=== PATIENT | female | born 1950 | race Caucasian/White ===

== ENCOUNTER 2017-05-20 07:20 | Outpatient (CLI) | payer MEDICARE ==
[2017-05-20 08:57] LABS: Estimated GFR-MDRD - POC Greater than 90
--- NOTE | 2017-05-20 11:53 | CT ---
CT OF THE ABDOMEN AND PELVIS WITH CONTRAST: COMPARISON: None. HISTORY: Right lower quadrant abdominal pain for 6 weeks. Cirrhosis of the liver. TECHNIQUE: Multiple contiguous axial images were obtained in a CT of the abdomen and pelvis with contrast. P.o. contrast was administered. Coronal reformats were performed. FINDINGS: The liver is cirrhotic in appearance. There are calcifications in the liver and spleen from prior gr anulomatous disease. No suspicious liver lesions are seen. The gallbladder, kidneys, adrenal glands, and pancreas are unremarkable. There are retroperitoneal varices and a spontaneous left splenorenal shunt. There are numerous diverticula in the colon. There is thickening of the sigmoid colon wall which may be secondary to chronic scarring. Acute diverticulitis is also a possibility. The small bowel is n ormal in caliber. The appendix is unremarkable. The patient is status post hysterectomy. No abdominal or pelvic lymphadenopathy are seen. There are small retroperitoneal lymph nodes measuring up to 1.4 cm in greatest dimension. Degenerative changes are seen in the spine. The visualized inferior thorax and abdominal wall soft t issues are unremarkable. IMPRESSION: 1. Diverticulosis with possible acute diverticulitis versus scarring secondary to thickening of the wall. 2. Cirrhosis with sequelae of portal hypertension. POS: [facility]
== END 2017-05-20 07:21 | disposition home or self-care (01) ==
LOC: BICCT 07:20
PROVIDERS: ATTEND Internal Medicine Gastroenterology
DX: K74.60 Unspecified cirrhosis of liver (principal); R10.9 Unspecified abdominal pain; K72.90 Hepatic failure, unspecified without coma
CPT/HCPCS: 74177

== ENCOUNTER 2017-08-16 14:08 | Outpatient (CLI) | payer MEDICARE | END 2017-08-16 14:09 | disposition home or self-care (01) | LOC: EEG 14:08 | PROVIDERS: ATTEND Student in an Organized Health Care Education/Training Program | DX: R51 Headache (principal); H53.9 Unspecified visual disturbance; R47.9 Unspecified speech disturbances; R25.1 Tremor, unspecified; R26.89 Other abnormalities of gait and mobility | CPT/HCPCS: 95816 ==

== ENCOUNTER 2018-08-14 15:16 | Emergency (ER) | payer MEDICARE ==
--- NOTE | 2018-08-14 15:46 | RAD ---
XR Knee Lt 4 View STANDARD History: [Pain after a fall] Comparison: None. Findings: Moderate size joint effusion. Medial compartment joint space narrowing with subcortical cys t formation, sclerosis, and osteophyte formation. Osteophyte formation is also present in the lateral compartment. Mild periarticular osteopenia of the lateral rim of the lateral tibial plateau. No defi nite fracture is appreciated. Impression: Advanced degenerative changes periarticular osteopenia of the lateral rim of the lateral tibial plateau with what is felt to be an osteophyte and not a fracture. If the patient is acutely un able to bear weight, a CT would be recommended.
--- NOTE | 2018-08-14 16:54 | CT ---
CT left knee noncontrast HISTORY: Left knee injury. Fall 6 weeks ago. FINDINGS: Small amount of fluid distends the suprapatellar bursa. There is prominent tricompartmental osteophytosis. Marked joint space narrowing of the medial compartment. Moderate joint space narrowin g of the lateral compartment. Lateral subluxation of the patella with prominent joint space loss. Sub cortical cyst formation most pronounced at the medial tibial plateau. Small embedded metallic foreign body just superficial to the medial patellofemoral retinaculum. IMPRESSION: Prominent osteoarthritic changes of the left knee with near complete joint space loss of the medial compartment and a small joint effusion. No acute osseous abnormalities are demonstrated.
--- NOTE | 2018-08-14 17:54 | ULT ---
EXAM: Left lower extremity venous duplex: Deep veins evaluated with color Doppler, spectral analysis, and compression. INDICATIONS: Left lower extremity pain and edema. FINDINGS: Deep veins interrogated include common femoral vein, femoral vein, popliteal vein, and posterior tibi al vein. These veins show normal compression and blood flow. No evidence of DVT. IMPRESSION: Negative Left venous duplex exam.
== END 2018-08-14 18:25 | disposition home or self-care (01) ==
LOC: ERS 15:16
DX: M25.562 Pain in left knee (principal); I10 Essential (primary) hypertension; E11.9 Type 2 diabetes mellitus without complications; F41.9 Anxiety disorder, unspecified; F32.9 Major depressive disorder, single episode, unspecified; Z87.891 Personal history of nicotine dependence; W19.XXXA Unspecified fall, initial encounter

== ENCOUNTER 2018-09-06 15:04 | Outpatient (CLI) | payer MEDICARE ==
[~2018-09-06 15:04] MED LIST: Gadobenate Dimeglumine 529 MG/1 ML (20ML VIAL) ONE
[2018-09-06 16:33] LABS: Estimated GFR-MDRD - POC Greater than 90
--- NOTE | 2018-09-07 08:23 | MRI ---
MRI ABDOMEN WITH AND WITHOUT IV CONTRAST: HISTORY: Hepatitis C, abdominal pain. CORRELATION: CT abdomen of 05/20/2017. COMPARISON: MRI of abdomen 09/20/2013. FINDINGS: Irregular nodular surface of the liver is seen consistent with cirrhosis. No enhancing hepatic mass or abnormal biliary ductal dilatation is seen. The spleen is enlarged measuring 15.4 cm in length. Gallbladder is unremarkable. A subcentimeter cyst in the left kidney is stable. The pancreas, adrenal glands, and right kidney ar e normal. There is a tiny amount of free fluid in the upper abdomen. No lymphadenopathy is seen. Marrow signa l is normal. Retroperitoneal and splenic varices and left splenorenal shunt are again noted. IMPRESSION: 1. Cirrhosis of the liver with portal hypertension. No enhancing liver mass. 2. Minimal ascites. 3. Left renal cyst. 4. Splenomegaly. POS: [facility]
== END 2018-09-06 15:05 | disposition home or self-care (01) ==
LOC: BICMRI 15:04
PROVIDERS: ATTEND Physician Assistant Medical
DX: K74.60 Unspecified cirrhosis of liver (principal); Z86.19 Personal history of other infectious and parasitic diseases; K76.6 Portal hypertension; R18.8 Other ascites; N28.1 Cyst of kidney, acquired; R16.1 Splenomegaly, not elsewhere classified
CPT/HCPCS: 74183; 82565; A9577

== ENCOUNTER 2018-09-07 12:33 | Emergency (ER) | payer MEDICARE ==
[2018-09-07 13:22] LABS: #Eosinphils 0.1 thou/uL (0.0-0.7); #Monocytes 0.3 thou/uL (0.11-0.59); #Neutrophils 1.8 thou/uL (1.40-6.50); %Basophils 0.6 % (0.0-1.0); %Eosinophils 2.8 % (0.0-10.0); %Lymphocytes 31.4 % (21.0-51.0); %Monocytes 8.1 % (0.0-10.0); Mean Corpuscular HGB CONC 31.8 g/dL (32.0-36.0); Mean Corpuscular Volume 91.2 fL (78.0-98.0); Mean Platelet Volume 8.8 fL (7.4-10.4); Platelet Count 50 thou/uL (130-400); RBC Distribution Width 14.2 % (11.5-14.5); Red Blood Cell (RBC) Count 4.13 mill/uL (4.20-5.40); White Blood Cell (WBC) Count 3.1 thou/uL (4.8-10.8)
--- NOTE | 2018-09-07 13:47 | ULT ---
LEFT LOWER EXTREMITY VENOUS DOPPLER ULTRASOUND: Date: 09/07/18 HISTORY: Left lower extremity pain. TECHNIQUE/FINDINGS: Multiple longitudinal and transverse images of the left lower extremity venous system obtained using a multihertz linear array transducer. Real-time, color flow, and spectral waveform Doppler analysis d emonstrates no evidence of acute or old clot seen in the left common femoral, superficial femoral, fe moral profunda, popliteal, posterior tibial vein, and left greater saphenous vein. IMPRESSION: No evidence of left lower extremity deep venous thrombosis. POS: [facility]
[2018-09-07 13:48] LABS: ALT (SGPT) 30 U/L (8-55); AST (SGOT) 57 U/L (5-34); Albumin 2.9 g/dL (3.4-4.8); Alkaline Phosphatase 125 U/L (40-150); Anion Gap 8 mmol/L (10-20); BUN (Urea Nitrogen) 5 mg/dL (9.8-20.1); Bilirubin, Total 1.6 mg/dL (0.2-1.2); Calc. Creatinine Clearance 0 mL/min (70-130); Calcium 8.5 mg/dL (7.8-10.44); Carbon Dioxide 28 mmol/L (23-31); Chloride 108 mmol/L (98-107); Estimated GFR-MDRD 82; Globulin 3.5 g/dL (2.4-3.5); Glucose 267 mg/dL (80-115); Potassium 3.5 mmol/L (3.5-5.1); Protein, Total 6.4 g/dL (6.0-8.3); Sodium 140 mmol/L (136-145)
== END 2018-09-07 15:50 | disposition home or self-care (01) ==
LOC: ERS 12:33
DX: D69.6 Thrombocytopenia, unspecified (principal); F41.9 Anxiety disorder, unspecified; F32.9 Major depressive disorder, single episode, unspecified; E11.9 Type 2 diabetes mellitus without complications; I10 Essential (primary) hypertension; M79.605 Pain in left leg; Z87.891 Personal history of nicotine dependence
CPT/HCPCS: 36415; 80053; 85025

== ENCOUNTER 2018-11-13 16:19 | Outpatient (CLI) | payer MEDICARE ==
--- NOTE | 2018-11-13 18:11 | RAD ---
TWO VIEWS CHEST: Comparison: 07-20-12 History: Fall with pain in the left chest. FINDINGS: Two views of the chest show normal sized cardiomediastinal silhouette. There is no evidence of consol idation, mass, or pleural effusion. The bones are unremarkable. IMPRESSION: No evidence of acute cardiopulmonary disease. POS: [facility]
--- NOTE | 2018-11-13 18:12 | RAD ---
LEFT RIB SERIES: History: Fall with left chest pain. FINDINGS: Three views of the left ribs shows no evidence of displaced left rib fracture. No pleural thickening or pneumothorax are seen. IMPRESSION: No evidence of displaced left rib fracture. POS: [facility]
== END 2018-11-13 16:20 | disposition home or self-care (01) ==
LOC: BICRAD 16:19
PROVIDERS: ATTEND Internal Medicine
DX: R07.9 Chest pain, unspecified (principal); Z91.81 History of falling
CPT/HCPCS: 36415; 71046; 80076; 82140; 85025

== ENCOUNTER 2018-12-07 08:53 | Outpatient (CLI) | payer MEDICARE ==
--- NOTE | 2018-12-07 10:26 | BD ---
Exam: DEXA Bone Density Comparison: None. History: 68-year-old post-menopausal female for screening Lumbar Spine: BMD (g/cm2) L1 0.882 T-Score: -1.0 L2 0.923 T-Score: -1.0 L3 1.011 T-Score: -0.7 L4 0.968 T-Score: -0.8 L1-L4 0.951 T-Score: -0.9 Femoral Neck: 0.593 T-Score: -2.3 Total Femur: 0.821 T-Score: -1.0 Impression: 1. Osteopenia. This patient has a 10-year WHO fracture risk of a major osteoporotic fracture of 12% a nd hip fracture 2.4%. POS: [facility]
== END 2018-12-07 08:54 | disposition home or self-care (01) ==
LOC: BICMAMMO 08:53
PROVIDERS: ATTEND Internal Medicine
DX: Z13.820 Encounter for screening for osteoporosis (principal); M85.89 Other specified disorders of bone density and structure, multiple sites
CPT/HCPCS: 77080

== ENCOUNTER 2019-01-23 12:18 | Inpatient (IN) | payer MEDICARE, OTHER ==
[2019-01-23 12:54] LABS: #Eosinphils 0.1 thou/uL (0.0-0.7); #Lymphocytes 1.5 thou/uL (1.20-3.40); #Monocytes 0.5 thou/uL (0.11-0.59); #Neutrophils 2.9 thou/uL (1.40-6.50); %Basophils 0.4 % (0.0-1.0); %Eosinophils 1.8 % (0.0-10.0); %Lymphocytes 29.2 % (21.0-51.0); %Monocytes 10.2 % (0.0-10.0); %Neutrophils 58.5 % (42.0-75.0); Hemoglobin 12.4 g/dL (12.0-16.0); Mean Corpuscular HGB CONC 33.9 g/dL (32.0-36.0); Mean Corpuscular Hemoglobin 30.2 pg (27.0-31.0); Mean Corpuscular Volume 89.2 fL (78.0-98.0); Mean Platelet Volume 9.6 fL (7.4-10.4); Platelet Count 64 thou/uL (130-400); RBC Distribution Width 14.2 % (11.5-14.5); Red Blood Cell (RBC) Count 4.09 mill/uL (4.20-5.40)
[2019-01-23 13:13] LABS: ALT (SGPT) 35 U/L (8-55); AST (SGOT) 58 U/L (5-34); Albumin 2.9 g/dL (3.4-4.8); Alkaline Phosphatase 120 U/L (40-150); Anion Gap 10 mmol/L (10-20); BUN (Urea Nitrogen) 16 mg/dL (9.8-20.1); Bilirubin, Total 1.2 mg/dL (0.2-1.2); Calc. Creatinine Clearance 0 mL/min (70-130); Calcium 9.3 mg/dL (7.8-10.44); Carbon Dioxide 30 mmol/L (23-31); Chloride 108 mmol/L (98-107); Estimated GFR-MDRD 66; Globulin 3.9 g/dL (2.4-3.5); Glucose 110 mg/dL (80-115); Lipase 57 U/L (8-78); Protein, Total 6.8 g/dL (6.0-8.3); Sodium 143 mmol/L (136-145)
--- NOTE | 2019-01-23 13:43 | RAD ---
XR Chest 1 View Portable HISTORY: Altered mental status COMPARISON: 07/29/2014 FINDINGS: The heart size is normal. The lungs are well expanded without focal areas of consolidation, pneumothorax or pleural effusions. IMPRESSION: No radiographic evidence of acute cardiopulmonary process.
--- NOTE | 2019-01-23 13:50 | CT ---
CT HEAD WITHOUT IV CONTRAST COMPARISON: 03/17/2014 HISTORY: Altered mental status. TECHNIQUE: Axial CT imaging at 5 mm intervals from vertex through skull base without contrast FINDINGS: There is a small curvilinear area of increased density conforming to the inner table of the left fron joshua bone which measures approximately 4 mm in greatest transverse dimension. This was not identified on the prior exam. While this could potentially represent an area of dural thickening, a s mall subdural hematoma is suggested. No additional intraparenchymal or extra-axial hemorrhage is seen. There is no evidence of an acute infarction, mass effect, or midline shift. Again noted is mild cereb ral volume loss similar to the prior exam. The ventricular system is normal in size, shape, and position. Visualized paranasal sinuses are clear. Osseous structures appear intact. IMPRESSION: 1. Suggestion of a small subdural hematoma measuring 4 mm in greatest transverse dimension in the lef t anterolateral frontal region. This is not thought to represent an area of dural thickening; although, this is a possibility. This was not present on prior study in 2013. Follow-up evaluation is recommended. 2. Above findings discussed with May Barajas nurse practitioner in the emergency department on at 1348 hours.
[2019-01-23 15:06] LABS: INR-International Normal Ratio 1.5; PTT 31.6 SEC (22.9-36.1); Prothrombin Time 18.3 SEC (12.0-14.7)
[2019-01-23] MEDS ORDERED: Acetaminophen 325 MG TAB PO PRN (17:17)
[2019-01-23] MEDS ORDERED: Ondansetron PF 4 MG/2 ML Vial IVP PRN (17:17)
[2019-01-23] MEDS ORDERED: Ondansetron ODT 4 MG TAB SL PRN (17:17)
[2019-01-23 17:59] VITALS: BMI 39.1
[2019-01-23] MEDS ORDERED: Lorazepam 1 MG TAB PO PRN (19:33)
[2019-01-23] MEDS ORDERED: Dextrose 50% Abboject 50 ML SYRINGE SLOW IVP PRN (19:51)
[2019-01-23] MEDS ORDERED: HumaLOG 300 UNITS/3 ML VIAL SC PRN (19:51)
[2019-01-23] MEDS ORDERED: Dextrose 5% in Water 1,000 ML IV PRN (19:51)
[2019-01-23] MEDS ORDERED: Insulin Glargine 50 UNITS in Pre-Filled Syringe SC SCH (21:00)
[2019-01-23] MEDS ORDERED: Non-Formulary Item 1 EACH (Insulin Glargine,Hum.Rec.Anlog [Lantus Solostar] 50 UNIT) SQ SCH (21:00)
[2019-01-23] MEDS: Insulin Glargine 40 UNITS in Pre-Filled Syringe SC SCH (21:01)
--- NOTE | 2019-01-23 22:54 | HP ---
PRIMARY CARE PHYSICIAN: Suzan East MD. PUNCH PRESS SETTER: Cordell Goldman MD. CHIEF COMPLAINT/REASON FOR ADMISSION: "My brought me to the hospital." HISTORY OF PRESENT ILLNESS: Ms. Miller is a pleasant 68-year-old female with a longstanding history of cirrhosis secondary to hepatitis C, typically well compensated, presenting on this occasion with confusion. History is primarily gathered from Mr. Miller who is present at the bedside. He endorses last night , she became increasingly confused, with visual hallucinations, believing that a table was on fire. She developed difficulty with speech and coordination, for example , had difficulty working the knobs and the shower. She has been under a great deal of stress recently, due to loss of a pet, as well as some other home stressors. No recent fever or chills. At baseline, she is prescribed lactulose once daily, but has been noncompliant with her regimen. She does not like having loose stools. When asked about trauma or falls, her states her baseline gait is somewhat unsteady, and she has had minor falls in the past. She has had no recent significant fall or injury. ER evaluation notable for CT head showing small subdural hematoma, 4 mm left anterior frontal area. Additionally in the emergency department, her ammonia level noted to be quite elevated, approximately 100. Lactulose given in the emergency department. Hospitalist admission requested. At the time of my evaluation, the patient states she is feeling better. She is sitting up and eating. She has no abdominal pain. She reiterates that she has had no fever or chills. PAST MEDICAL HISTORY: 1. Essential hypertension. 2. Type 2 diabetes, on Lantus 40 units subcutaneously twice daily. 3. Valentin's esophagitis. 4. Hepatitis C status post treatment, in remission. 5. Chronic liver disease/cirrhosis secondary to hepatitis. 6. Bipolar disorder. 7. History of posttraumatic stress disorder. 8. Obstructive sleep apnea, not currently on CPAP. 9. Chronic thrombocytopenia in the context of chronic liver disease. PAST SURGICAL HISTORY: 1. Appendectomy. 2. Hysterectomy. 3. Right shoulder surgery. 4. Right ankle surgery. 5. Tonsillectomy. 6. History of ruptured ectopic . 7. History of polyp removal, colonoscopy. SOCIAL HISTORY: Ms. Miller does not drink alcohol. She drank occasionally in the past, but never heavily. No IV drug use or previous history of drug use. She formerly used tobacco 1 pack per day, presently vapes and uses 1 or 2 cigarettes on occasion. Formerly worked in the [employer] business. Mr. Miller works for the local [employer]. ALLERGIES: LISTED TO DONALD, RECORD WHICH CAUSES A RASH. HOME MEDICATIONS: 1. Lactulose 20 g p.o. once daily (noncompliant). 2. Lantus 40 units subcutaneously twice daily. 3. Gabapentin 300 mg p.o. three times daily. 4. Furosemide 20 mg p.o. once daily. 5. Lisinopril 10 mg p.o. once daily. 6. Lorazepam 1 mg p.o. t.i.d. p.r.n. anxiety. 7. Nadolol 40 mg p.o. daily. 8. Omeprazole 40 mg p.o. once daily. FAMILY HISTORY: Both parents were alcoholics and of complications of alcoholism. REVIEW OF SYSTEMS: Full review of systems reviewed, addressed, negative except otherwise as mentioned. PHYSICAL EXAMINATION: VITAL SIGNS: ER triage vital signs; blood pressure 145/70, heart rate 97, temperature 97.7, respiratory rate 18, saturating 96% on room air. GENERAL: This is a pleasant female, sitting up in bed eating dinner at the time of my evaluation. HEENT: Eyes are without conjunctival injection or scleral icterus. Pupils are reactive to light bilaterally, equal/symmetric. Oropharynx, mucous membranes are dry. No erythema/exudate. NECK: Supple. Full range of motion. HEART: Regular rate and rhythm without distinct murmurs/rubs/gallops. LUNGS: Clear to auscultation bilaterally, good aeration. No significant overlying wheezing. ABDOMEN: Soft, nontender, nondistended. No distinct fluid wave. EXTREMITIES: Trace bilateral lower extremity edema. SKIN: No new skin rash or skin change. NEUROLOGIC: She is able to tell me her name, as well as her 's name. She knows she is at [facility] , but she is unable to tell me the correct date. She believes the year is 2019. She is not oriented to her situation in regard to events preceding hospital stay. She is able to follow commands. Speech appears clear. She has no focal deficit on testing. No asterixis present. LABORATORY/DATA REVIEW: CT head personally reviewed, small subdural 4 mm left anterior frontal area, compatible with subdural hematoma. Lab notable for platelet count of 64,000, which is close to her baseline. INR is 1.5. Liver function tests reviewed. Ammonia 102, lipase 57. Chest x-ray personally reviewed. No infiltrate/effusion/edema. Case discussed by phone with FARZANA Delacruz. IMPRESSION: 1. Decompensated hepatic encephalopathy secondary to noncompliance with lactulose. 2. Cirrhosis in the context of history of hepatitis C, in remission. 3. History of essential hypertension. 4. Insulin-dependent type 2 diabetes. 5. History of gastroesophageal reflux disease, on chronic proton pump inhibitor therapy. 6. Anxiety/depression with recent interval worsening. 7. Small area of subdural bleed, likely not clinically relevant, presently being followed by Neurosurgery. PLAN/RECOMMENDATIONS: 1. GI-additional dose lactulose 20 g p.o. this evening, then 20 g p.o. t.i.d. Check morning ammonia level. She seems to be showing good response to therapy. We will place home gabapentin on hold, as this may contribute to the confusion. Continue home omeprazole. 2. Endocrine-Lantus 40 units subcutaneously twice daily, verified dose with Mr. Miller. We will also place on insulin sliding scale, correctional. 3. Cardiology - continue home lisinopril. 4. Anxiety-continue home p.r.n. benzodiazepines. 5. Neurosurgery-followup CT head ordered by neurosurgical team, consultation appreciated. 6. Evaluation by walking program for ambulation. 7. Given her age and comorbidities, she is a high risk. At this time, her decompensation appears directly related to medical noncompliance. She does not have a history or laboratory evidence of other complications such as infection, underlying. As such, she will be treated symptomatically. Code status is full. 8. Surrogate medical decision maker is her , Mr. Miller, who is at the bedside. General risk condition is high given comorbidities. Job ID: [id number] [facility]
--- NOTE | 2019-01-23 23:02 | CON ---
DATE OF CONSULTATION: HISTORY OF PRESENT ILLNESS: The patient is a 68-year-old female with a past medical history of hepatitis C, cirrhosis, thrombocytopenia, dementia, anxiety and depression, managed by Dr. East, who presented to the emergency department with spouse for complaints of increased altered mental status. reports that the patient has been more anxious and had intermittent hallucinations and coordination issues. She is often uncoordinated and they report frequent falls in the past, but cannot not recall any particular recent trauma. Denies any fever or any other associated symptoms. She was evaluated with a noncontrast CT on arrival which is notable for a very small left frontal acute subdural hematoma. Again, no obvious trauma was seen or reported by the spouse. She is also noted to have elevated ammonia at 102. Platelets are chronically low, 64 today. Her PT is also slightly elevated at 18.3. Neurosurgery was consulted for evaluation of patient's new acute subdural hematoma. Pt had GCS 15 in ER. No focal neurologic deficits were reported. PAST MEDICAL HISTORY: Cirrhosis, hepatitis C, thrombocytopenia, diabetes, ulcerative colitis, anxiety, depression, hypertension. PAST SURGICAL HISTORY: Appendectomy, hysterectomy, right shoulder surgery, right ankle surgery, tonsillectomy. SOCIAL HISTORY: The patient does not smoke, drink, or use any drugs. REVIEW OF SYSTEMS: Per HPI. ALLERGIES: SHE IS ALLERGIC TO INSULIN LEVEMIR. PHYSICAL EXAMINATION: CONSTITUTIONAL: Awake, alert, in no acute distress. A and O x4. HEENT: Head, normocephalic and atraumatic. Eyes, PERRLA. Extraocular movements intact. ENT, oral mucosa is pink, intact, and moist. She has normal voice. NECK: Nontender to palpation. No meningismus or nuchal rigidity. MUSCULOSKELETAL: Free active range of motion all extremities. No focal motor weakness. NEURO: She is A and O x4. She is slightly tangential during our conversation, but her exam is otherwise nonfocal. CARDIAC: Regular rate and rhythm. PULMONARY: Symmetric chest expansion. No evidence of dyspnea. ASSESSMENT AND PLAN: This is a 68-year-old female who has had increased confusion per her spouse and was brought to the emergency department and found to have acute left frontal subdural hematoma, also found to have elevated ammonia levels and chronically low platelets, which are 64 today. At this time, we feel that the subdural is unlikely the cause of her confusion. It is quite small, not causing any shift or mass effect. There is no reported trauma and I do not appreciate any trauma externally on my exam. This may be spontaneous, related to her chronically low platelet count. We would recommend that we continue to monitor closely with q.2 neuro checks. We will repeat her a.m. noncontrast head CT. Her confusion is likely related to her ammonia levels and these are being managed by the hospitalist service. We will defer to them with regard to her other medical issues. [facility] ID[facility] [id number] [facility]
[2019-01-24 04:12] LABS: Anion Gap 10 mmol/L (10-20); BUN (Urea Nitrogen) 12 mg/dL (9.8-20.1); Calc. Creatinine Clearance 117 mL/min (70-130); Calcium 8.5 mg/dL (7.8-10.44); Carbon Dioxide 23 mmol/L (23-31); Chloride 111 mmol/L (98-107); Estimated GFR-MDRD 87; Potassium 3.5 mmol/L (3.5-5.1); Sodium 140 mmol/L (136-145)
[2019-01-24 04:18] LABS: Glucose 59 mg/dL (80-115)
[2019-01-24 04:26] LABS: #Eosinphils 0.1 thou/uL (0.0-0.7); #Lymphocytes 1.1 thou/uL (1.20-3.40); #Monocytes 0.3 thou/uL (0.11-0.59); #Neutrophils 1.9 thou/uL (1.40-6.50); %Basophils 0.9 % (0.0-1.0); %Eosinophils 2.7 % (0.0-10.0); %Lymphocytes 32.4 % (21.0-51.0); %Monocytes 8.8 % (0.0-10.0); %Neutrophils 55.2 % (42.0-75.0); Hemoglobin 11.5 g/dL (12.0-16.0); Mean Corpuscular HGB CONC 33.1 g/dL (32.0-36.0); Mean Corpuscular Hemoglobin 30.2 pg (27.0-31.0); Mean Corpuscular Volume 91.4 fL (78.0-98.0); Mean Platelet Volume 9.1 fL (7.4-10.4); Platelet Count 59 thou/uL (130-400); RBC Distribution Width 14.3 % (11.5-14.5); White Blood Cell (WBC) Count 3.5 thou/uL (4.8-10.8)
--- NOTE | 2019-01-24 07:22 | CT ---
CT BRAIN WITHOUT CONTRAST: Date: 01/24/19 INDICATION: 68-year-old female with intracranial hemorrhage. COMPARISON: Prior CT of the brain dated 01/23/19. FINDINGS: The small subdural hemorrhage overlying the anterolateral aspect of the left frontal lobe is not appr eciably changed in size measuring 3.7 mm in its greatest transverse dimension on image 15 of series 2 . This is similar to the comparison examination when accounting for slight differences in angulation of the acquired sections. No definite acute infarct or hydrocephalus is present. No midline shift is evident. Mastoid air cells are clear. Visualized paranasal sinuses are clear. The skull is intact. IMPRESSION: Stable left frontal subdural hemorrhage. POS: [facility]
[2019-01-24] MEDS: Insulin Glargine 40 UNITS in Pre-Filled Syringe SC SCH ×2 (09:15→20:38)
[2019-01-24] MEDS: Nadolol 40 MG TAB PO SCH (09:15)
[2019-01-24] MEDS: Furosemide 20 MG TAB PO SCH (09:15)
[2019-01-24] MEDS: Lisinopril 10 MG TAB PO SCH (09:15)
--- NOTE | 2019-01-24 09:42 | PRG ---
DATE OF SERVICE: 01/24/2019 SUBJECTIVE: The patient is seen and examined at bedside. The patient's daughter is present in the room during my visit. The patient's mental condition improved. She still has some slurred speech and difficulty of recalling some stuff, but otherwise she is improved. She complains about a lot of diarrhea from her lactulose. Apparently, no matter how much lactulose she takes. She has watery diarrhea basically all day. I have a hard time to believe in this because if she had diarrhea, she would not have elevated ammonia level. OBJECTIVE: VITAL SIGNS: Blood pressure is 144/76, pulse is 85, temperature is 96.3, respirations 16, and O2 saturation is 96% on room air. HEENT: Head is normocephalic. Sclerae are nonicteric. Conjunctivae are pinkish. Oral mucosa is moist. NECK: Supple. LUNGS: Clear. HEART: S1 and S2, normal. No S3. No S4. ABDOMEN: Soft, nontender, and nondistended. Bowel sounds are present. No organomegaly. EXTREMITIES: No clubbing or cyanosis. There is 1+ peripheral edema on both lower extremities. NEUROLOGIC: She follows my commands. She moves her all 4 extremities, but mentally she is off. She is not able to recall her things from past history. LABORATORY DATA: Labs showed white count of 3.5, hemoglobin 11.5, hematocrit 34.7, and platelet count is 59,000. Sodium 140, potassium 3.5, creatinine 1.11, CO2 of 23, BUN 12, creatinine 0.67, and glucose was 59. This morning, on her BMP, ammonia level is down to 77 from 102 yesterday. IMAGING STUDIES: CT of the brain showed again a small subdural hematoma, which is measured at 3.7 mm in the left frontal lobe area. IMPRESSION: 1. Decompensated hepatic encephalopathy secondary to noncompliance with lactulose. We will try to use smaller doses of lactulose since she is complaining about some diarrhea. We will use 10 g three times a day and see how she responds. 2. Left frontal subdural hematoma measured 3.7 mm on this morning CT scan of the brain. Neurosurgical consultation was done yesterday and there is no any indication for any surgical intervention needed. 3. History of essential hypertension. 4. Insulin-dependent type 2 diabetes mellitus. 5. Anxiety/depression with recent interval worsening. 6. History of gastroesophageal reflux disease, on chronic proton pump inhibitors therapy, and we will obtain ammonia level tomorrow morning and do walking program today and she should be able to go home in the next 24 hours most likely. Job ID: [id number]
[2019-01-24] MEDS ORDERED: Acetaminophen 325 MG TAB PO PRN (19:16)
[2019-01-24] MEDS: Rifaximin 550 MG TAB PO SCH (20:33)
[2019-01-25 04:20] LABS: #Eosinphils 0.1 thou/uL (0.0-0.7); #Lymphocytes 1.3 thou/uL (1.20-3.40); #Monocytes 0.4 thou/uL (0.11-0.59); #Neutrophils 2.6 thou/uL (1.40-6.50); %Basophils 0.5 % (0.0-1.0); %Eosinophils 3.2 % (0.0-10.0); %Lymphocytes 28.8 % (21.0-51.0); %Neutrophils 59.5 % (42.0-75.0); Hemoglobin 12.8 g/dL (12.0-16.0); Mean Corpuscular HGB CONC 33.8 g/dL (32.0-36.0); Mean Corpuscular Hemoglobin 30.2 pg (27.0-31.0); Mean Corpuscular Volume 89.4 fL (78.0-98.0); Mean Platelet Volume 9.2 fL (7.4-10.4); Platelet Count 56 thou/uL (130-400); RBC Distribution Width 14.1 % (11.5-14.5); Red Blood Cell (RBC) Count 4.24 mill/uL (4.20-5.40); White Blood Cell (WBC) Count 4.4 thou/uL (4.8-10.8)
[2019-01-25 04:32] LABS: ALT (SGPT) 33 U/L (8-55); AST (SGOT) 65 U/L (5-34); Albumin 2.7 g/dL (3.4-4.8); Alkaline Phosphatase 129 U/L (40-150); Anion Gap 11 mmol/L (10-20); BUN (Urea Nitrogen) 8 mg/dL (9.8-20.1); Bilirubin, Total 0.9 mg/dL (0.2-1.2); Calc. Creatinine Clearance 108 mL/min (70-130); Calcium 8.6 mg/dL (7.8-10.44); Carbon Dioxide 25 mmol/L (23-31); Chloride 108 mmol/L (98-107); Estimated GFR-MDRD 79; Globulin 3.8 g/dL (2.4-3.5); Glucose 160 mg/dL (80-115); Potassium 3.7 mmol/L (3.5-5.1); Protein, Total 6.5 g/dL (6.0-8.3); Sodium 140 mmol/L (136-145)
[2019-01-25 08:18] VITALS: TEMP 98.3
[2019-01-25] MEDS ORDERED: Enoxaparin Sodium 40 MG/0.4 ML SYRINGE SC SCH (09:00)
[2019-01-25] MEDS: Rifaximin 550 MG TAB PO SCH (10:34)
[2019-01-25] MEDS: Lisinopril 10 MG TAB PO SCH (10:34)
[2019-01-25] MEDS: Nadolol 40 MG TAB PO SCH (10:34)
[2019-01-25] MEDS: Furosemide 20 MG TAB PO SCH (10:37)
--- NOTE | 2019-01-25 11:28 | PRG ---
DATE OF SERVICE: Followup CT scan was reviewed and no meaningful change. The patient has a tiny left frontal subdural hematoma, that was discovered incidentally. It is not related to her altered mentation. No plans for neurosurgical intervention and no need for specific clinical and radiographic followup in this regard. Avoid any anticoagulation or antiplatelet agents. Job ID: [id number]
[2019-01-25 12:06] VITALS: BP 147/65
[2019-01-25] MEDS: Insulin Glargine 40 UNITS in Pre-Filled Syringe SC SCH (13:10)
--- NOTE | 2019-01-26 02:08 | DIS ---
DATE OF ADMISSION: 01/23/2019 DATE OF DISCHARGE: 01/25/2019 DIAGNOSES AT THE TIME OF DISCHARGE: 1. Decompensated hepatic encephalopathy secondary to noncompliance with lactulose. 2. Left frontal subdural hematoma. 3. History of essential hypertension. 4. Insulin-dependent type 2 diabetes mellitus. 5. Anxiety/depression. 6. History of gastroesophageal reflux disease. CONSULTANTS: Dionisio Zarco MD, Neurosurgical Service. HOSPITAL COURSE: The patient is a 68-year-old female, who was admitted to the hospital with statement that my brought me to the hospital. Apparently, she has a long-standing history of cirrhosis secondary to hepatitis C, typically well compensated but this time, she was presented with confusion. She became increasingly confused the night prior to this hospitalization. She had visual hallucinations. She had some difficulty with speech and coordination. At baseline, she was prescribed lactulose once a day but has not been compliant with her regimen, because she does not like having loose stools. Apparently, according to her , the patient's gait was not very steady. She had some minor falls in the past, but there was no any recent significant fall or injury. In the emergency room, CT of the brain showed subdural hematoma which was measured 4 mm and located in the left anterior frontal area. Also, ammonia level was elevated and the patient was admitted to the hospital for further evaluation. At the time of admission, her platelet level was 64,000, which was her baseline. INR was 1.5. Ammonia was 102. Lipase 57. Chest x-ray did not show any infiltrates, effusion or edema. Neurosurgical consultation was requested for evaluation of her small subdural hematoma. It was felt that this was most likely not related to her encephalopathy and this was incidental finding, which could be even spontaneously occurring. Neurosurgical team did not recommend any followup on this issue. They recommended not to use any antiplatelets or aspirin medications or anticoagulation to decrease the risk of rebleeding. She was given lactulose and her ammonia level came down to the level of 67. Her mental condition improved to the point that she was able to function. Her slurred speech improved. She was discharged home with recommendation to stay on low-salt diet and activities as tolerated as long as her gait is steady. She was started on Xifaxan during this hospitalization 550 mg twice a day and she was continued on small dose of lactulose 10 mg 3 times a day. She is discharged home in good condition. MEDICATIONS: At the time of discharge as mentioned above: 1. Xifaxan 550 mg twice a day. 2. Lactulose 10 mg 3 times a day. 3. Omeprazole 40 mg once a day. 4. Insulin glargine 50 units twice a day. 5. Lisinopril 10 mg daily. 6. Ativan 1 mg 3 times a day p.r.n. 7. Nadolol 40 mg once a day. 8. Furosemide 20 mg daily. 9. Gabapentin 300 mg 3 times a day. FOLLOWUP: She is going to follow up with the primary care physician, Dr. Cardoso, in 1 week. Job ID: [id number]
--- NOTE | 2019-01-27 12:30 | EKG ---
Test Reason : Blood Pressure : / mmHG Vent. Rate : 096 BPM Atrial Rate : 096 BPM P-R Int : 134 ms QRS Dur : 080 ms QT Int : 382 ms P-R-T Axes : 063 005 059 degrees QTc Int : 482 ms Sinus rhythm with occasional Premature ventricular complexes Anterior infarct , age undetermined Abnormal ECG Confirmed by DUKE WYATT DO ([id number]), industrial editor WALDO ONEILL ([id number]) on 01/27/2019 12:29:34 PM Referred By: Confirmed By:DUKE WYATT DO
== END 2019-01-25 13:45 | disposition home or self-care (01) | DRG 441 ==
LOC: ERS 12:18 → ERHOLD 15:06 → T4-B 17:19
PROVIDERS: ADMIT Internal Medicine; ATTEND Internal Medicine
DX: K72.00 Acute and subacute hepatic failure without coma (principal); I62.01 Nontraumatic acute subdural hemorrhage; K72.10 Chronic hepatic failure without coma; K74.60 Unspecified cirrhosis of liver; B18.2 Chronic viral hepatitis C; I10 Essential (primary) hypertension; E11.9 Type 2 diabetes mellitus without complications; F43.10 Post-traumatic stress disorder, unspecified; G47.33 Obstructive sleep apnea (adult) (pediatric); D69.59 Other secondary thrombocytopenia; F17.210 Nicotine dependence, cigarettes, uncomplicated; Z79.4 Long term (current) use of insulin; Z90.710 Acquired absence of both cervix and uterus; Z90.49 Acquired absence of other specified parts of digestive tract; Z79.899 Other long term (current) drug therapy; Z91.14 Patient's other noncompliance with medication regimen; Z88.8 Allergy status to other drugs, medicaments and biological substances; F03.90 Unspecified dementia, unspecified severity, without behavioral disturbance, psychotic disturbance, mood disturbance, and anxiety; R29.6 Repeated falls; F31.9 Bipolar disorder, unspecified; K21.0 Gastro-esophageal reflux disease with esophagitis; R40.2362 Coma scale, best motor response, obeys commands, at arrival to emergency department; R40.2142 Coma scale, eyes open, spontaneous, at arrival to emergency department; R40.2242 Coma scale, best verbal response, confused conversation, at arrival to emergency department
CPT/HCPCS: 36415; 36416; 70450; 71045; 80048; 80053; 82140; 83690; 84484; 85025; 85610; 85730; 93005; 94760; J1650; J1815

== ENCOUNTER 2019-03-15 13:44 | Emergency (ER) | payer MEDICARE, OTHER ==
[2019-03-15 15:20] LABS: #Eosinphils 0.1 thou/uL (0.0-0.7); #Lymphocytes 1.5 thou/uL (1.20-3.40); #Monocytes 0.4 thou/uL (0.11-0.59); #Neutrophils 2.5 thou/uL (1.40-6.50); %Basophils 0.5 % (0.0-1.0); %Eosinophils 2.3 % (0.0-10.0); %Lymphocytes 33.2 % (21.0-51.0); %Monocytes 8.5 % (0.0-10.0); %Neutrophils 55.5 % (42.0-75.0); Hemoglobin 12.1 g/dL (12.0-16.0); Mean Corpuscular HGB CONC 32.5 g/dL (32.0-36.0); Mean Corpuscular Hemoglobin 29.1 pg (27.0-31.0); Mean Corpuscular Volume 89.8 fL (78.0-98.0); Mean Platelet Volume 9.9 fL (7.4-10.4); Platelet Count 61 thou/uL (130-400); RBC Distribution Width 14.8 % (11.5-14.5); Red Blood Cell (RBC) Count 4.14 mill/uL (4.20-5.40); White Blood Cell (WBC) Count 4.4 thou/uL (4.8-10.8)
[2019-03-15 15:37] LABS: Bilirubin Negative (Negative); Blood, Urine Negative (Negative); Clarity Clear (Clear); Glucose, Urine (Dipstick) 70 mg/dL (Negative); Leukocyte Negative Leu/uL (Negative); Nitrite Negative (Negative); Protein, Urine (Dipstick) Negative (Neg-Trace); Urobilinogen 6 mg/dL (Less than 2)
--- NOTE | 2019-03-15 15:37 | CT ---
CT OF BRAIN PERFORMED WITHOUT CONTRAST ENHANCEMENT: 03/15/19 HISTORY: Altered mental status. COMPARISON: 01/24/19 study. Mild generalized ventricular and sulcal prominence which is fairly age appropriate. There is no signs of intracerebral hemorrhage or extra-axial fluid collections. The left frontal subdural hematoma has resolved. Mastoid air cells and visualized sinuses are clear. IMPRESSION: No acute intracranial abnormalities. POS: TPC
[2019-03-15 15:42] LABS: ALT (SGPT) 23 U/L (8-55); AST (SGOT) 42 U/L (5-34); Acetaminophen Less than 6.0 mcg/mL (10.0-30.0); Albumin 2.6 g/dL (3.4-4.8); Alcohol Less than 10 mg/dL (Less than 10); Alkaline Phosphatase 163 U/L (40-110); Anion Gap 9 mmol/L (10-20); BUN (Urea Nitrogen) 7 mg/dL (9.8-20.1); Bilirubin, Total 1.1 mg/dL (0.2-1.2); CK (CPK) 95 U/L (29-168); Calc. Creatinine Clearance 0 mL/min (70-130); Calcium 7.8 mg/dL (7.8-10.44); Carbon Dioxide 27 mmol/L (23-31); Chloride 104 mmol/L (98-107); Estimated GFR-MDRD 71; Globulin 4.1 g/dL (2.4-3.5); Glucose 297 mg/dL (80-115); Lipase 120 U/L (8-78); Potassium 3.1 mmol/L (3.5-5.1); Protein, Total 6.7 g/dL (6.0-8.3); Salicylate Less than 8.0 mg/dL (15.0-30.0); Sodium 137 mmol/L (136-145)
--- NOTE | 2019-03-15 15:47 | RAD ---
Exam: Chest one view HISTORY:Evaluate for fluid retention. Comparison: 01/23/2019 FINDINGS: Cardiac silhouette: Normal Aorta: Unremarkable Pulmonary vessels: Normal Costophrenic angles: Clear LUNGS: No masses or consolidation. Pneumothorax: None Osseous abnormalities: None IMPRESSION: No acute cardiopulmonary process.
[2019-03-15 15:48] LABS: Amphetamine Not Detected (NotDetected); Barbiturates Screen Not Detected (NotDetected); Benzodiazepine Screen Not Detected (NotDetected); Cocaine Metabolite Screen Not Detected (NotDetected); Medtox Control Line Valid? VALID (VALID); Medtox Reader # READER 4; Methadone Not Detected (NotDetected); Methamphetamine Not Detected (NotDetected); Opiate Screen Not Detected (NotDetected); Oxycodone Screen Not Detected (NotDetected); Phencyclidine (PCP) Not Detected (NotDetected); THC/Cannabinoid Screen Detected (NotDetected); Tricyclic Screen Not Detected (NotDetected)
[2019-03-15] MEDS ORDERED: Ondansetron ODT 4 MG TAB ONE (15:51)
[2019-03-15] MEDS ORDERED: Potassium Chloride 20 MEQ TAB ONE (15:51)
== END 2019-03-15 16:43 | disposition home or self-care (01) ==
LOC: ERS 13:44
DX: K72.90 Hepatic failure, unspecified without coma (principal); R74.8 Abnormal levels of other serum enzymes; I10 Essential (primary) hypertension; E11.9 Type 2 diabetes mellitus without complications; F41.9 Anxiety disorder, unspecified; F32.9 Major depressive disorder, single episode, unspecified; F17.210 Nicotine dependence, cigarettes, uncomplicated; Z79.4 Long term (current) use of insulin; Z79.899 Other long term (current) drug therapy
CPT/HCPCS: 70450; 71045; 80053; 80306; 80307; 81003; 82140; 82550; 83690; 83880; 84443; 84484; 85025; 93005; 96360; Q0162

== ENCOUNTER 2019-03-29 07:03 | Inpatient (IN) | payer MEDICARE, OTHER ==
[2019-03-29] MEDS ORDERED: Magnesium 2 GM/50 ML BAG (IN WATER) ONE (07:12)
[2019-03-29] MEDS ORDERED: Albuterol Sulfate 2.5 mg/3 ml Neb ONE (07:22)
[2019-03-29] MEDS ORDERED: Azithromycin 500 MG VIAL ONE (07:33)
[2019-03-29 07:35] LABS: #Eosinphils 0.1 thou/uL (0.0-0.7); #Lymphocytes 2.9 thou/uL (1.20-3.40); #Monocytes 0.7 thou/uL (0.11-0.59); #Neutrophils 4.1 thou/uL (1.40-6.50); %Basophils 0.5 % (0.0-1.0); %Eosinophils 1.9 % (0.0-10.0); %Lymphocytes 36.8 % (21.0-51.0); %Monocytes 8.7 % (0.0-10.0); Hemoglobin 13.6 g/dL (12.0-16.0); Mean Corpuscular HGB CONC 32.3 g/dL (32.0-36.0); Mean Corpuscular Hemoglobin 28.9 pg (27.0-31.0); Mean Corpuscular Volume 89.6 fL (78.0-98.0); Mean Platelet Volume 10.5 fL (7.4-10.4); Platelet Count 74 thou/uL (130-400); RBC Distribution Width 15.1 % (11.5-14.5); Red Blood Cell (RBC) Count 4.69 mill/uL (4.20-5.40); White Blood Cell (WBC) Count 7.9 thou/uL (4.8-10.8)
[2019-03-29 07:35] LABS: Actual Bicarbonate (HCO3a) 23.7 mEq/L (22-28); Analyzer IN Cardio ER; Base Excess (BEa) -1.4 mEq/L (-2.0 to +3.0); Calcium, Ionized 1.18 mmol/L (1.12-1.30); Carboxyhemoglobin (COHb) 1.1 gm% (0.0-3.0); Hemoglobin (Hb) 13.4 g/dL (12.0-16.0); O2 Tension (PaO2) 66.9 mmHg (> 80.0); pH, Arterial 7.38 (7.35-7.45)
[2019-03-29 07:47] LABS: Puncture Site RRA
[2019-03-29 07:57] LABS: ALT (SGPT) 33 U/L (8-55); AST (SGOT) 73 U/L (5-34); Albumin 2.9 g/dL (3.4-4.8); Alkaline Phosphatase 124 U/L (40-110); Anion Gap 14 mmol/L (10-20); BUN (Urea Nitrogen) 10 mg/dL (9.8-20.1); Bilirubin, Total 1.7 mg/dL (0.2-1.2); Calc. Creatinine Clearance 0 mL/min (70-130); Calcium 8.6 mg/dL (7.8-10.44); Carbon Dioxide 20 mmol/L (23-31); Chloride 107 mmol/L (98-107); Estimated GFR-MDRD 78; Globulin 4.7 g/dL (2.4-3.5); Glucose 164 mg/dL (80-115); Potassium 4.3 mmol/L (3.5-5.1); Protein, Total 7.6 g/dL (6.0-8.3); Sodium 137 mmol/L (136-145)
[2019-03-29 08:11] LABS: CKMB 6.2 ng/mL (0-6.6)
--- NOTE | 2019-03-29 08:26 | RAD ---
Exam: Chest one view HISTORY:Dyspnea. Shortness of breath. Comparison: 03/15/2019 FINDINGS: Cardiac silhouette: Normal Aorta: Unremarkable Pulmonary vessels: Normal Costophrenic angles: Interval development of a large right-sided pleural effusion LUNGS: Significant reduction in terms of aeration of the right lung secondary to pleural effusion. Ad equate aeration left lung. Pneumothorax: None Osseous abnormalities: None IMPRESSION: Pleural and parenchymal changes in the right hemithorax. Consider further evaluation with CT.
[2019-03-29] MEDS ORDERED: Ondansetron ODT 4 MG TAB PO PRN ×2 (09:42→12:26)
[2019-03-29] MEDS ORDERED: Acetaminophen 325 MG TAB PO PRN (09:42)
[2019-03-29] MEDS ORDERED: cefTRIAXone\\ROCEPHIN 1 GM in Sodium Chloride 0.9% 100 ML IVPB SCH (10:00)
[2019-03-29 10:10] LABS: INR-International Normal Ratio 1.6; Prothrombin Time 18.5 SEC (12.0-14.7)
--- NOTE | 2019-03-29 10:23 | HP ---
PRIMARY CARE PROVIDER: Dr. Suzan East. HISTORY OF PRESENT ILLNESS: The patient has had 1 to 2 weeks of progressive shortness of breath, presents into the emergency room with respiratory distress, had been put on BiPAP in the emergency room. She has had a clear cough. She said positive for fever, chills, and sweats over the past week. PAST MEDICAL HISTORY: Pertinent for hepatitis C, treated; cirrhosis; history of hepatic encephalopathy; hypertension; diabetes mellitus type 2, insulin dependent; bipolar disorder; Valentin esophagus; obstructive sleep apnea; chronic thrombocytopenia. PAST SURGICAL HISTORY: Appendectomy, hysterectomy, right shoulder surgery, right ankle surgery, tonsillectomy, history of ruptured ectopic , history of polyp removal and colonoscopy. CURRENT MEDICATIONS: 1. Lactulose 20 g t.i.d. 2. Lantus insulin 50 units subcu twice daily. 3. Gabapentin 300 mg p.o. t.i.d. 4. Lasix 20 mg a day. 5. Mirtazapine 7.5 mg a day. 6. Nadolol 40 mg a day. 7. Lisinopril 10 mg a day. 8. Omeprazole 40 mg a day. 9. Xifaxan 500 mg twice a day. ALLERGIES: INSULIN DETEMIR, RASH. SOCIAL HISTORY: No alcohol. No tobacco. Full code status. , next of kin. FAMILY HISTORY: Both parents are alcoholics and of complications of alcoholism. REVIEW OF SYSTEMS: GENERAL: Lightheadedness. No fainting. No headache. EYES: Blurred vision. No double vision or flashing lights. EAR, NOSE, and THROAT: No ear pain or drainage. She has occasional nose bleed. She has no oral pain. CARDIAC: She has continuous chest tightness over the last few days related to her respiratory problems. It is not aggravated by lying down. RESPIRATORY: Dry cough, shortness of breath, marked respiratory distress recently. No history of asthma. GASTROINTESTINAL: Some nausea with present illness. Diarrhea with lactulose. No abdominal pain. No bleeding. GENITOURINARY: No hematuria or dysuria. MUSCULOSKELETAL: Swelling in her right leg is much worse recently. No pain in her muscles. NEUROLOGIC: No strokes, seizures, or focal weakness. She does have a history of hepatic encephalopathy in the past. PSYCHIATRIC: She has a history of PTSD, bipolar disorder. SKIN: Easy bruising. No rash. HEME/LYMPH: No tender or swollen lymph nodes in axilla and inguinal cervical area. PHYSICAL EXAMINATION: GENERAL: The patient is alert, oriented, cooperative on BiPAP at the current time. VITAL SIGNS: O2 saturation 96% on BiPAP, temperature 98.3, pulse rate 96, respirations are 28 to 30, and blood pressure 93/57. HEAD, EYES, EARS, NOSE, AND THROAT: Revealed pupils are equal and round. Extraocular movements are intact. Sclerae are white. Tympanic membranes are clear. Nose is clear. Oral mucous membranes are clear. NECK: No jugular venous distention, adenopathy, or thyromegaly. CHEST: Dull on the right side. Diminished breath sounds on the right. Good breath sounds on the left. HEART: Regular rate and rhythm. Diminished heart sounds. No murmurs or gallops appreciated. ABDOMEN: Protuberant. No definite fluid wave. No palpable hepatosplenomegaly or mass. Bowel sounds are present. EXTREMITIES: 2 to 3+ edema. No cyanosis or clubbing. Pulses; carotid, radial, and femoral pulses are intact. Pedal pulses diminished by edema. SKIN: Reveals easy bruising on her arms. Warm and dry. HEME/LYMPH: No tender or swollen lymph nodes, axilla, inguinal, or cervical area. NEUROLOGIC: Cranial nerves II through XII are intact. Moves all extremities. DIAGNOSTIC DATA: EKG, regular sinus rhythm. Mild tachycardia. No acute findings reviewed by me. Chest x-ray shows an almost complete opacification of the right lung field. Left lung field is clear. Heart size appears normal. The left lung opacification appears at this time to be a pleural effusion, reviewed by me. LABORATORY DATA: Blood gas; pH 7.38 and pCO2 of 41, PO2 of 66.9 on 40% O2 and BiPAP. White count 7.9, hemoglobin 13.6, Platelet count 74,000. Chemistries; bilirubin 1.7, AST 73, alkaline phos 124. Ammonia is 49. Troponin 0.045. BNP is 438. Lytes are balanced. PT/INR has been ordered. ADMITTING DIAGNOSES: 1. Acute respiratory distress with hypoxemia, on BiPAP. 2. Large right pleural effusion. Cannot rule out pneumonia. 3. Cirrhosis secondary to hepatitis C. 4. 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 5. Diabetes mellitus type 2. 6. Hypertension. PLAN: Admit to IMCU. The patient will be placed on IV antibiotics for possible pneumonia with parapneumonic effusion. Blood cultures have been drawn. Pulmonary consult. Accu-Chek sliding scale. The patient will most likely need a semi-emergent thoracentesis. Job ID: [id number]
[2019-03-29] MEDS ORDERED: Azithromycin 500 MG in Sodium Chloride 0.9% 250 ML 250 ML IVPB SCH (11:00)
--- NOTE | 2019-03-29 11:09 | CON ---
DATE OF CONSULTATION: 03/29/2019 HISTORY OF PRESENT ILLNESS: This is a 68-year-old morbidly obese female, who was brought to the ER by her with severe shortness of breath. She is 99 kg. Blood pressure is 99/55 in the ER, respirations 30, pulse 102, sats are 96% on room air. X-ray shows a large right-sided pleural effusion. She is having difficulty breathing, coughing, but no fever or chills. states that she sees a local physician with a past medical history of hepatitis C, never had previous pleural effusion or ascites, diabetes. PAST SURGICAL HISTORY: 1. Appendix. 2. Hysterectomy. 3. Right shoulder. 4. Right ankle. 5. Tonsillectomy. 6. Polyp. 7. Ectopic. SOCIAL HISTORY: She smokes a pack a day. No alcohol or drug abuse. HOME MEDICATIONS: Include; 1. Rifaximin 550. 2. Omeprazole 40. 3. Nadolol 40. 4. Ativan. 5. Zestril 10. 6. Lactulose. 7. Insulin. 8. Gabapentin. 9. Lasix. ALLERGIES: UNKNOWN. REVIEW OF SYSTEMS: Otherwise, unremarkable. PHYSICAL EXAMINATION: GENERAL: On examination, morbidly obese female in the ER with sats of 95%, pulse is 80, respirations 25, afebrile, blood pressure 140/80. CHEST: Decreased breath sounds in right lung. Left lung unremarkable. CARDIAC: Normal S1, S2. No gallops. ABDOMEN: No masses. LABORATORY DATA: Platelet count is 74,000, H and H of 13 and 42. Chemistry profile, normal. BUN and creatinine are normal. Bilirubin is 1.7. AST is 73, BNP is 438. X-ray shows a large right pleural effusion. ASSESSMENT: 1. Right pleural effusion. 2. History of hepatitis C. 3. Cirrhosis. 4. Thrombocytopenia. 5. Diabetes. 6. Morbid obesity. PLAN: Thoracentesis will be performed. Further recommendations as above. Otherwise, agree with empiric antibiotics, neb treatments, supportive care. We will follow. Job ID: [id number]
--- NOTE | 2019-03-29 11:34 | RAD ---
Exam: Chest one view HISTORY:Status post thoracentesis Comparison: 03/29/2019 FINDINGS: Cardiac silhouette: Normal Aorta: Unremarkable Pulmonary vessels: Normal Costophrenic angles: Interval decrease in right-sided pleural fluid. Trace amount of right-sided pleu ral fluid does remain LUNGS: Improved aeration of right lung. Residual interstitial opacities do remain. Pneumothorax: None Osseous abnormalities: None IMPRESSION: 1. Improved aeration of the right lung secondary to a right-sided thoracentesis. No pneumothorax.
[2019-03-29] MEDS: cefTRIAXone\\ROCEPHIN 1 GM in Sodium Chloride 0.9% 100 ML IVPB SCH (12:29)
[2019-03-29] MEDS: Acetaminophen 325 MG TAB PO PRN ×2 (12:30→20:09)
[2019-03-29 12:32] LABS: RBC Count-Automated (BF) 2720 /cumm; WBC/Nucleated-Auto (BF) 628 uL
[2019-03-29 12:33] LABS: BF Color Yellow; Body Fluid Source Thoracentesis Fluid; Clarity Hazy (Clear); Tube # EDTA
[2019-03-29 12:44] LABS: Fluid, Triglycerides 65 mg/dL (Not Available); Pleural Fluid, Amylase Less than 30 U/L (Not Available); Pleural Fluid, Glucose 190 mg/dL; Pleural Fluid, LDH 89 U/L (Not Available)
[2019-03-29 13:17] LABS: Troponin I 0.022 ng/mL (< 0.028)
[2019-03-29 13:26] LABS: Cell Count Non Hematic 47 %; Eosinophils 7 %; Lymphocytes 46 %
[2019-03-29] MEDS ORDERED: Furosemide 40 MG/4 ML VIAL SLOW IVP SCH (14:00)
[2019-03-29] MEDS ORDERED: Prevnar 13-Val Conj/PF 0.5 ML SYRINGE IM ONE (14:00)
--- NOTE | 2019-03-29 14:13 | PDOC.HOSPP ---
- Subjective Encounter Date: 03/29/19 Encounter Time: 14:10 Subjective: post thoracentesis, no sob - Objective Vital Signs & Weight: Vital Signs (12 hours) Temp 03/29/19 10:35 97.8 F Weight Weight 215 lb 6.266 oz Most Recent Monitor Data Heart Rate from ECG 94 NIBP 107/48 NIBP BP-Mean 67 Respiration from ECG 20 SpO2 99 I&O: 03/28/19 03/29/19 03/30/19 06:59 06:59 06:59 Intake Total 580 Balance 580 Result Diagrams: 03/29/19 07:19 03/29/19 07:19 Hospitalist ROS - Medication Medications: Active Medications Generic Name Dose Route Start Last Admin Trade Name Freq PRN Reason Stop Dose Admin Acetaminophen 650 mg 03/29/19 12:26 03/29/19 12:30 Tylenol PO 650 mg Q4H PRN Administration Headache/Fever/Mild Pain (1-3) Heparin Sodium (Porcine) 1,000 units 03/29/19 10:30 03/29/19 12:20 Heparin Lock Flush 100 Units/Ml IVF 03/29/19 15:00 Not Given NOW FOR[facility], [facility]1983 Ceftriaxone Sodium 1 gm/ 100 mls @ 200 mls/hr 03/29/19 13:00 03/29/19 12:29 Sodium Chloride IVPB 100 mls 1300 GORGE Administration - Exam General Appearance: awake alert Neck: no JVD Heart: RRR, no murmur Respiratory: CTAB Respiratory - other findings: scant rhonchi on R Gastrointestinal: soft, normal bowel sounds Extremities: 2+ LE edema Hosp A/P (1) Acute respiratory failure with hypoxemia Code(s): J96.01 - ACUTE RESPIRATORY FAILURE WITH HYPOXIA Status: Acute (2) Pleural effusion, right Code(s): J90 - PLEURAL EFFUSION, NOT ELSEWHERE CLASSIFIED Status: Acute (3) 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) Code(s): K74.69 - OTHER CIRRHOSIS OF LIVER; B19.20 - UNSPECIFIED VIRAL HEPATITIS C WITHOUT HEPATIC COMA Status: Acute (4) Thrombocytopenia Code(s): D69.6 - THROMBOCYTOPENIA, UNSPECIFIED Status: Acute (5) DM type 2 (diabetes mellitus, type 2) Status: Acute Qualifiers: Diabetes mellitus extermination supervisor insulin use: with extermination supervisor use Diabetes mellitus complication status: without complication Qualified Code(s): E11.9 - Type 2 diabetes mellitus without complications; Z79.4 - intermediate accountant (current) use of insulin - Plan doing well post thoracetesis, dramatic clearing R chest on cxr cont iv diuresis selected home meds
--- NOTE | 2019-03-29 15:26 | OP ---
DATE OF PROCEDURE: 03/29/2019 PROCEDURE PERFORMED: Thoracentesis. INDICATION FOR PROCEDURE: Pleural effusion. DESCRIPTION OF PROCEDURE: After informed consent, the right posterior thorax was cleaned with chlorhexidine. 1% lidocaine was infiltrated into the right ninth intercostal space in the midscapular area while she was sitting up in the bed along with informed consent. Lidocaine was infiltrated over the pleura. The pleural cavity was entered in, and about 20 mL of relatively clear fluid was removed. Thereafter, using an 8-Luxembourger catheter, a total of 2500 mL was removed without any difficulty. We sent for appropriate studies including culture and cytology. The patient tolerated the procedure well. Job ID: [id number]
[2019-03-29] MEDS ORDERED: Dextrose 5% in Water 1,000 ML IV PRN (16:54)
[2019-03-29] MEDS ORDERED: Dextrose 50% Abboject 50 ML SYRINGE SLOW IVP PRN (16:54)
[2019-03-29] MEDS: Furosemide 40 MG/4 ML VIAL SLOW IVP SCH (17:06)
[2019-03-29] MEDS: Gabapentin 300 MG CAP PO SCH ×2 (17:06→20:10)
[2019-03-29] MEDS: HumaLOG 300 UNITS/3 ML VIAL SC PRN ×2 (18:06→20:10)
[2019-03-29] MEDS: Insulin Glargine 50 UNITS in Pre-Filled Syringe 1 EACH SC SCH (20:10)
[2019-03-29] MEDS: Rifaximin 550 MG TAB PO SCH (20:10)
[2019-03-30] MEDS: HumaLOG 300 UNITS/3 ML VIAL SC PRN ×2 (05:23→12:39)
[2019-03-30] MEDS: Furosemide 40 MG/4 ML VIAL SLOW IVP SCH ×2 (05:23→14:23)
[2019-03-30] MEDS: Gabapentin 300 MG CAP PO SCH ×3 (08:47→20:21)
[2019-03-30] MEDS: Rifaximin 550 MG TAB PO SCH ×2 (08:47→20:21)
[2019-03-30] MEDS: Nadolol 40 MG TAB PO SCH (08:47)
[2019-03-30] MEDS: Lisinopril 10 MG TAB PO SCH (08:47)
[2019-03-30] MEDS: Azithromycin 500 MG in Sodium Chloride 0.9% 250 ML 250 ML IVPB SCH (08:54)
[2019-03-30] MEDS: Insulin Glargine 50 UNITS in Pre-Filled Syringe 1 EACH SC SCH ×2 (08:54→20:24)
--- NOTE | 2019-03-30 09:15 | PRG ---
DATE OF SERVICE: 03/30/2019 SUBJECTIVE: She is better this morning. She is less short of breath. OBJECTIVE: VITAL SIGNS: Sats are 96% on 2 L, temperature 97, blood pressure 130/70, and respirations 18. CHEST: Decreased breath sounds in right lung without any wheezing, left unremarkable. CARDIAC: Normal S1-S2. No gallops. ABDOMEN: Soft. Massive. NEUROLOGIC: She is awake, alert, and responsive. Pleural effusion was transudate. IMPRESSION: 1. Hepatitis C. 2. Large right pleural effusion //// no pneumonia. PLAN: Pulmonary will follow at a distance. May suggest concerning GI. Continue home medication. PT, supportive care. Job ID: [id number] [facility]
[2019-03-30 11:12] LABS: Anion Gap 10 mmol/L (10-20); BUN (Urea Nitrogen) 21 mg/dL (9.8-20.1); Calc. Creatinine Clearance 90 mL/min (70-130); Carbon Dioxide 27 mmol/L (23-31); Chloride 100 mmol/L (98-107); Estimated GFR-MDRD 61; Glucose 279 mg/dL (80-115); Potassium 3.8 mmol/L (3.5-5.1); Sodium 133 mmol/L (136-145)
[2019-03-30 11:18] LABS: Troponin I Less than 0.010 ng/mL (< 0.028)
[2019-03-30] MEDS: cefTRIAXone\\ROCEPHIN 1 GM in Sodium Chloride 0.9% 100 ML IVPB SCH (12:38)
[2019-03-30 15:08] LABS: Troponin I 0.023 ng/mL (< 0.028)
[2019-03-30] MEDS: Acetaminophen 325 MG TAB PO PRN ×2 (15:41→20:21)
--- NOTE | 2019-03-30 15:55 | PDOC.HOSPP ---
- Subjective Encounter Date: 03/30/19 Encounter Time: 10:15 Subjective: pt up in bed eating her lunch. feels well, has not gotten up with PT - Objective Vital Signs & Weight: Vital Signs (12 hours) Temp Pulse Resp BP BP Pulse Ox 03/30/19 15:28 98.4 F 65 17 93/58 L 97 03/30/19 11:00 97.3 F L 81 17 118/74 97 03/30/19 08:47 113/79 03/30/19 07:29 97.7 F 87 18 107/69 96 03/30/19 04:00 98.1 F 87 18 123/71 97 Weight Weight 215 lb 6.266 oz Most Recent Monitor Data Heart Rate from ECG 90 NIBP 154/71 NIBP BP-Mean 98 Respiration from ECG 21 SpO2 100 I&O: 03/29/19 03/30/19 03/31/19 06:59 06:59 06:59 Intake Total 820 Balance 820 Result Diagrams: 03/30/19 22:30 04/01/19 06:01 Additional Labs: Accuchecks 03/30/19 03/30/19 03/29/19 11:44 04:16 20:13 POC Glucose 259 H 441 H 444 H 03/29/19 16:51 POC Glucose 326 H Hospitalist ROS - Review of Systems Cardiovascular: denies: chest pain, palpitations, orthopnea, paroxysmal noc. dyspnea, edema, light headedness, other Gastrointestinal: denies: nausea, vomiting, abdominal pain, diarrhea, constipation, melena, hematochezia, other Genitourinary: denies: dysuria, frequency, incontinence, hematuria, retention, other - Medication Medications: Active Medications Generic Name Dose Route Start Last Admin Trade Name Freq PRN Reason Stop Dose Admin Acetaminophen 650 mg 03/29/19 12:26 03/30/19 15:41 Tylenol PO 650 mg Q4H PRN Administration Headache/Fever/Mild Pain (1-3) Furosemide 40 mg 03/29/19 14:00 03/30/19 14:23 Lasix SLOW IVP 40 mg 0600,1400 GORGE Administration Gabapentin 300 mg 03/29/19 15:00 03/30/19 14:23 Neurontin PO 300 mg TID GORGE Administration Azithromycin 500 mg/ Sodium 250 mls @ 250 mls/hr 03/30/19 08:00 03/30/19 08: 54 Chloride IVPB 250 mls 0800 GORGE Administration Ceftriaxone Sodium 1 gm/ 100 mls @ 200 mls/hr 03/29/19 13:00 03/30/19 12:38 Sodium Chloride IVPB 100 mls 1300 GORGE Administration Insulin Glargine 50 units/ 0.5 mls @ 0 mls/hr 03/29/19 21:00 03/30/19 08:54 Miscellaneous Medication SC 0.5 mls BID GORGE Administration Insulin Human Lispro 0 units 03/29/19 16:54 03/30/19 12:39 Humalog SC 6 unit .MODERATE SLIDING SC PRN Administration Moderate Correctional Scale Insulin Human Lispro 0 units 03/29/19 16:54 03/29/19 20:10 Humalog SC 5 unit .BEDTIME SLIDING SC PRN Administration Bedtime Correctional Scale Lactulose 10 gm 03/29/19 15:00 03/30/19 14:23 Lactulose PO 10 gm TID GORGE Administration Lisinopril 10 mg 03/30/19 09:00 03/30/19 08:47 Zestril PO 10 mg DAILY GORGE Administration Nadolol 40 mg 03/30/19 09:00 03/30/19 08:47 Corgard PO 40 mg DAILY GORGE Administration Pantoprazole Sodium 40 mg 03/30/19 09:00 03/30/19 08:47 Protonix PO 40 mg DAILY GORGE Administration Rifaximin 550 mg 03/29/19 21:00 03/30/19 08:47 Xifaxan PO 550 mg BID GORGE Administration Sodium Chloride 10 ml 03/29/19 21:00 03/30/19 08:47 Flush - Normal Saline IVF 10 ml Q12HR GORGE Administration - Exam Respiratory: negative: CTAB, no wheezes, no rales, no ronchi, normal chest expansion, no tachypnea, normal percussion, rales, rhonchi, tachypneic, wheezes Gastrointestinal: negative: soft, non-tender, non-distended, normal bowel sounds , no palpable masses, no hepatomegaly, no splenomegaly, no bruit, no guarding, no rigidity, tender to palpation, distended, diminished bowl sounds, voluntary guarding Extremities: negative: no cyanosis, no clubbing, no edema, 1+ LE edema, 2+ LE edema, clubbing Hosp A/P (1) Acute respiratory failure with hypoxemia Code(s): J96.01 - ACUTE RESPIRATORY FAILURE WITH HYPOXIA Status: Acute (2) DM type 2 (diabetes mellitus, type 2) Status: Acute Qualifiers: Diabetes mellitus manager terminal insulin use: with manager terminal use Diabetes mellitus complication status: without complication Qualified Code(s): E11.9 - Type 2 diabetes mellitus without complications; Z79.4 - skilled nursing (current) use of insulin (3) Pleural effusion, right Code(s): J90 - PLEURAL EFFUSION, NOT ELSEWHERE CLASSIFIED Status: Acute (4) Thrombocytopenia Code(s): D69.6 - THROMBOCYTOPENIA, UNSPECIFIED Status: Acute (5) Encephalopathy acute Code(s): G93.40 - ENCEPHALOPATHY, UNSPECIFIED Status: Acute (6) Hypertension Code(s): I10 - ESSENTIAL (PRIMARY) HYPERTENSION Status: Acute (7) Liver cirrhosis Code(s): K74.60 - UNSPECIFIED CIRRHOSIS OF LIVER Status: Acute - Plan Her right pleural fluid appears transudative. will continue abx for now. will get her up with PT. per pt's family she has not been walking a lot at home due to sob. will order a echo
[2019-03-30 19:03] LABS: Troponin I Less than 0.010 ng/mL (< 0.028)
[2019-03-30] MEDS: Mometasone/Formoterol 120 PUFF INHALER INH SCH (19:07)
[2019-03-30] MEDS ORDERED: Silver Nitrate Application 1 EACH TOP SCH (22:15)
[2019-03-30 22:50] LABS: INR-International Normal Ratio 1.8; PTT 29.1 SEC (22.9-36.1); Prothrombin Time 20.5 SEC (12.0-14.7)
[2019-03-30 22:51] LABS: Hemoglobin 11.8 g/dL (12.0-16.0); Mean Corpuscular HGB CONC 32.1 g/dL (32.0-36.0); Mean Corpuscular Hemoglobin 29.2 pg (27.0-31.0); RBC Distribution Width 14.8 % (11.5-14.5); Red Blood Cell (RBC) Count 4.05 mill/uL (4.20-5.40); White Blood Cell (WBC) Count 11.4 thou/uL (4.8-10.8)
[2019-03-30 22:52] LABS: #Eosinphils 0.1 thou/uL (0.0-0.7); #Lymphocytes 1.8 thou/uL (1.20-3.40); #Monocytes 0.7 thou/uL (0.11-0.59); #Neutrophils 8.8 thou/uL (1.40-6.50); %Basophils 0.1 % (0.0-1.0); %Lymphocytes 15.9 % (21.0-51.0); Mean Platelet Volume 10.2 fL (7.4-10.4); Platelet Count 68 thou/uL (130-400)
[2019-03-31] MEDS: Furosemide 40 MG/4 ML VIAL SLOW IVP SCH ×2 (05:12→13:37)
[2019-03-31] MEDS: Azithromycin 500 MG in Sodium Chloride 0.9% 250 ML 250 ML IVPB SCH (08:04)
[2019-03-31] MEDS: Gabapentin 300 MG CAP PO SCH ×3 (08:04→20:57)
[2019-03-31] MEDS: Nadolol 40 MG TAB PO SCH (08:05)
[2019-03-31] MEDS: Lisinopril 10 MG TAB PO SCH (08:05)
[2019-03-31] MEDS: Rifaximin 550 MG TAB PO SCH ×2 (08:05→20:57)
[2019-03-31] MEDS: Mometasone/Formoterol 120 PUFF INHALER INH SCH ×2 (09:48→18:58)
[2019-03-31] MEDS: Insulin Glargine 50 UNITS in Pre-Filled Syringe 1 EACH SC SCH ×2 (12:20→20:58)
[2019-03-31] MEDS: cefTRIAXone\\ROCEPHIN 1 GM in Sodium Chloride 0.9% 100 ML IVPB SCH (13:03)
--- NOTE | 2019-03-31 16:29 | RAD ---
XR Chest 1 View Portable History: Shortness of breath Comparison: Radiograph 2 days prior Findings: Right layering effusion has increased in size, now moderate to large in size. Trace left ef fusion. Heart size is enlarged. Mild pulmonary venous congestion. Impression: Enlarging right layering pleural effusion.
[2019-03-31] MEDS: Mirtazapine 15 MG TAB PO SCH (20:57)
[2019-03-31] MEDS ORDERED: Mag-Al 1200 mg/1200 mg/30 ML UDCUP PO PRN (22:52)
[2019-04-01] MEDS: Furosemide 40 MG/4 ML VIAL SLOW IVP SCH ×2 (06:39→14:48)
[2019-04-01] MEDS: HumaLOG 300 UNITS/3 ML VIAL SC PRN ×2 (06:40→12:05)
[2019-04-01 06:59] LABS: ALT (SGPT) 28 U/L (8-55); AST (SGOT) 47 U/L (5-34); Albumin 2.3 g/dL (3.4-4.8); Alkaline Phosphatase 120 U/L (40-110); Anion Gap 9 mmol/L (10-20); BUN (Urea Nitrogen) 18 mg/dL (9.8-20.1); Bilirubin, Total 0.8 mg/dL (0.2-1.2); Calc. Creatinine Clearance 102 mL/min (70-130); Calcium 7.9 mg/dL (7.8-10.44); Carbon Dioxide 30 mmol/L (23-31); Chloride 104 mmol/L (98-107); Estimated GFR-MDRD 71; Globulin 3.7 g/dL (2.4-3.5); Glucose 188 mg/dL (80-115); Sodium 139 mmol/L (136-145)
[2019-04-01] MEDS: Nadolol 40 MG TAB PO SCH (08:18)
[2019-04-01] MEDS: Lisinopril 10 MG TAB PO SCH (08:18)
[2019-04-01] MEDS: Rifaximin 550 MG TAB PO SCH ×2 (08:18→20:57)
[2019-04-01] MEDS: Ferrous Sulfate 325 MG TAB PO SCH (08:18)
[2019-04-01] MEDS: Pantoprazole 40 MG VIAL IVP SCH ×2 (08:18→20:58)
[2019-04-01] MEDS: Gabapentin 300 MG CAP PO SCH ×3 (08:18→20:59)
[2019-04-01] MEDS: Azithromycin 500 MG in Sodium Chloride 0.9% 250 ML 250 ML IVPB SCH (08:20)
[2019-04-01] MEDS: Mometasone/Formoterol 120 PUFF INHALER INH SCH ×2 (08:21→19:53)
[2019-04-01] MEDS: Insulin Glargine 50 UNITS in Pre-Filled Syringe 1 EACH SC SCH ×2 (08:36→21:00)
--- NOTE | 2019-04-01 08:46 | PDOC.HOSPP ---
- Subjective Encounter Date: 03/31/19 Encounter Time: 12:30 Subjective: pt up in bed eating, still is sob on minimal exertion - Objective Vital Signs & Weight: Vital Signs (12 hours) Temp Pulse Resp BP Pulse Ox 04/01/19 08:21 95 16 04/01/19 08:14 95 04/01/19 08:13 72 16 04/01/19 08:00 98.3 F 69 18 148/84 H 94 L 04/01/19 06:00 65 20 136/67 95 03/31/19 23:19 64 18 95 03/31/19 20:55 96 Weight Weight 215 lb 6.266 oz Most Recent Monitor Data Heart Rate from ECG 90 NIBP 154/71 NIBP BP-Mean 98 Respiration from ECG 21 SpO2 100 I&O: 03/31/19 04/01/19 04/02/19 06:59 06:59 06:59 Intake Total 250 420 Balance 250 420 Result Diagrams: 03/30/19 22:30 04/01/19 06:01 Additional Labs: Accuchecks 04/01/19 03/31/19 03/31/19 05:14 19:26 16:24 POC Glucose 171 H 160 H 130 H 03/31/19 03/31/19 03/31/19 11:28 09:38 00:27 POC Glucose 120 H 103 113 H Hospitalist ROS - Review of Systems Respiratory: reports: shortness of breath Cardiovascular: denies: chest pain, palpitations, orthopnea, paroxysmal noc. dyspnea, edema, light headedness, other Gastrointestinal: denies: nausea, vomiting, abdominal pain, diarrhea, constipation, melena, hematochezia, other - Medication Medications: Active Medications Generic Name Dose Route Start Last Admin Trade Name Freq PRN Reason Stop Dose Admin Acetaminophen 650 mg 03/29/19 12:26 03/30/19 20:21 Tylenol PO 650 mg Q4H PRN Administration Headache/Fever/Mild Pain (1-3) Al Hydroxide/Mg Hydroxide 30 ml 03/31/19 22:52 03/31/19 22:57 Maalox PO 30 ml Q4H PRN Administration Heartburn or Indigestion Albuterol/Ipratropium 3 ml 03/31/19 13:00 04/01/19 08:13 Duoneb NEB 3 ml [id number] GORGE Administration Ferrous Sulfate 325 mg 04/01/19 08:00 04/01/19 08:18 Feosol PO 325 mg QAM-WM GORGE Administration Furosemide 40 mg 03/29/19 14:00 04/01/19 06:39 Lasix SLOW IVP 40 mg 0600,1400 GORGE Administration Gabapentin 300 mg 03/29/19 15:00 04/01/19 08:18 Neurontin PO 300 mg TID GORGE Administration Ceftriaxone Sodium 1 gm/ 100 mls @ 200 mls/hr 03/29/19 13:00 03/31/19 13:03 Sodium Chloride IVPB 100 mls 1300 GORGE Administration Insulin Glargine 50 units/ 0.5 mls @ 0 mls/hr 03/29/19 21:00 04/01/19 08:36 Miscellaneous Medication SC 0.5 mls BID GORGE Administration Insulin Human Lispro 0 units 03/29/19 16:54 04/01/19 06:40 Humalog SC 2 unit .MODERATE SLIDING SC PRN Administration Moderate Correctional Scale Insulin Human Lispro 0 units 03/29/19 16:54 03/29/19 20:10 Humalog SC 5 unit .BEDTIME SLIDING SC PRN Administration Bedtime Correctional Scale Lactulose 10 gm 03/29/19 15:00 04/01/19 08:35 Lactulose PO 10 gm TID GORGE Administration Lisinopril 10 mg 03/30/19 09:00 04/01/19 08:18 Zestril PO 10 mg DAILY GORGE Administration Mirtazapine 15 mg 03/31/19 21:00 03/31/19 20:57 Remeron PO 15 mg HS GORGE Administration Mometasone Furoate/Formoterol Fumar 2 puff 03/31/19 18:30 04/01/19 08:21 Dulera 200 Mcg/5 Mcg Inhaler INH 2 puff BID-RT GORGE Administration Nadolol 40 mg 03/30/19 09:00 04/01/19 08:18 Corgard PO 40 mg DAILY GORGE Administration Pantoprazole Sodium 40 mg 04/01/19 09:00 04/01/19 08:18 Protonix IVP 40 mg BID GORGE Administration Rifaximin 550 mg 03/29/19 21:00 04/01/19 08:18 Xifaxan PO 550 mg BID GORGE Administration Sodium Chloride 10 ml 03/29/19 21:00 04/01/19 08:21 Flush - Normal Saline IVF 10 ml Q12HR GORGE Administration - Exam Heart: negative: RRR, no murmur, no gallops, no rubs, normal peripheral pulses, irregular, diminshed peripheral pulses, murmur present, II/IV, III/IV Respiratory: negative: CTAB, no wheezes, no rales, no ronchi, normal chest expansion, no tachypnea, normal percussion, rales, rhonchi, tachypneic, wheezes Gastrointestinal: negative: soft, non-tender, non-distended, normal bowel sounds , no palpable masses, no hepatomegaly, no splenomegaly, no bruit, no guarding, no rigidity, tender to palpation, distended, diminished bowl sounds, voluntary guarding Hosp A/P (1) Acute respiratory failure with hypoxemia Code(s): J96.01 - ACUTE RESPIRATORY FAILURE WITH HYPOXIA Status: Acute (2) 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) Code(s): K74.69 - OTHER CIRRHOSIS OF LIVER; B19.20 - UNSPECIFIED VIRAL HEPATITIS C WITHOUT HEPATIC COMA Status: Acute (3) DM type 2 (diabetes mellitus, type 2) Status: Acute Qualifiers: Diabetes mellitus alf insulin use: with intermediate accountant use Diabetes mellitus complication status: without complication Qualified Code(s): E11.9 - Type 2 diabetes mellitus without complications; Z79.4 - [facility] (current) use of insulin (4) Pleural effusion, right Code(s): J90 - PLEURAL EFFUSION, NOT ELSEWHERE CLASSIFIED Status: Acute (5) Hypertension Code(s): I10 - ESSENTIAL (PRIMARY) HYPERTENSION Status: Acute (6) Liver cirrhosis Code(s): K74.60 - UNSPECIFIED CIRRHOSIS OF LIVER Status: Acute - Plan echo indicated ef of 50%, will monitor. she is still sob and is requiring increase oxygen on ambulation. will repeat cxr. she is on iv lasix. will put her on fluid restriction.
[2019-04-01] MEDS: cefTRIAXone\\ROCEPHIN 1 GM in Sodium Chloride 0.9% 100 ML IVPB SCH (12:04)
[2019-04-01] MEDS: Acetaminophen 325 MG TAB PO PRN (13:46)
--- NOTE | 2019-04-01 14:23 | PDOC.HOSPP ---
- Subjective Encounter Date: 04/01/19 Encounter Time: 10:15 Subjective: pt up in bed appear a bit sob - Objective Vital Signs & Weight: Vital Signs (12 hours) Temp Pulse Resp BP Pulse Ox 04/01/19 13:51 70 16 04/01/19 08:21 95 16 04/01/19 08:14 95 04/01/19 08:13 72 16 04/01/19 08:00 98.3 F 69 18 148/84 H 94 L 04/01/19 06:00 65 20 136/67 95 Weight Weight 215 lb 6.266 oz Most Recent Monitor Data Heart Rate from ECG 90 NIBP 154/71 NIBP BP-Mean 98 Respiration from ECG 21 SpO2 100 I&O: 03/31/19 04/01/19 04/02/19 06:59 06:59 06:59 Intake Total 250 420 Balance 250 420 Result Diagrams: 03/30/19 22:30 04/01/19 06:01 Additional Labs: Accuchecks 04/01/19 04/01/19 03/31/19 11:18 05:14 19:26 POC Glucose 321 H 171 H 160 H 03/31/19 03/31/19 03/31/19 16:24 09:38 00:27 POC Glucose 130 H 103 113 H Hospitalist ROS - Review of Systems Respiratory: reports: shortness of breath, other Cardiovascular: denies: chest pain, palpitations, orthopnea, paroxysmal noc. dyspnea, edema, light headedness, other Gastrointestinal: reports: other. denies: nausea, vomiting, abdominal pain, diarrhea, constipation, melena, hematochezia - Medication Medications: Active Medications Generic Name Dose Route Start Last Admin Trade Name Freq PRN Reason Stop Dose Admin Acetaminophen 650 mg 03/29/19 12:26 04/01/19 13:46 Tylenol PO 650 mg Q4H PRN Administration Headache/Fever/Mild Pain (1-3) Al Hydroxide/Mg Hydroxide 30 ml 03/31/19 22:52 03/31/19 22:57 Maalox PO 30 ml Q4H PRN Administration Heartburn or Indigestion Albuterol/Ipratropium 3 ml 03/31/19 13:00 04/01/19 13:51 Duoneb NEB 3 ml [id number] GORGE Administration Ferrous Sulfate 325 mg 04/01/19 08:00 04/01/19 08:18 Feosol PO 325 mg QAM-WM GORGE Administration Furosemide 40 mg 03/29/19 14:00 04/01/19 06:39 Lasix SLOW IVP 40 mg 0600,1400 GORGE Administration Gabapentin 300 mg 03/29/19 15:00 04/01/19 08:18 Neurontin PO 300 mg TID GORGE Administration Insulin Glargine 50 units/ 0.5 mls @ 0 mls/hr 03/29/19 21:00 04/01/19 08:36 Miscellaneous Medication SC 0.5 mls BID GORGE Administration Insulin Human Lispro 0 units 03/29/19 16:54 04/01/19 12:05 Humalog SC 8 unit .MODERATE SLIDING SC PRN Administration Moderate Correctional Scale Insulin Human Lispro 0 units 03/29/19 16:54 03/29/19 20:10 Humalog SC 5 unit .BEDTIME SLIDING SC PRN Administration Bedtime Correctional Scale Lactulose 10 gm 03/29/19 15:00 04/01/19 08:35 Lactulose PO 10 gm TID GORGE Administration Lisinopril 10 mg 03/30/19 09:00 04/01/19 08:18 Zestril PO 10 mg DAILY GORGE Administration Mirtazapine 15 mg 03/31/19 21:00 03/31/19 20:57 Remeron PO 15 mg HS GORGE Administration Mometasone Furoate/Formoterol Fumar 2 puff 03/31/19 18:30 04/01/19 08:21 Dulera 200 Mcg/5 Mcg Inhaler INH 2 puff BID-RT GORGE Administration Nadolol 40 mg 03/30/19 09:00 04/01/19 08:18 Corgard PO 40 mg DAILY GORGE Administration Pantoprazole Sodium 40 mg 04/01/19 09:00 04/01/19 08:18 Protonix IVP 40 mg BID GORGE Administration Rifaximin 550 mg 03/29/19 21:00 04/01/19 08:18 Xifaxan PO 550 mg BID GORGE Administration Sodium Chloride 10 ml 03/29/19 21:00 04/01/19 08:21 Flush - Normal Saline IVF 10 ml Q12HR GORGE Administration - Exam Neck: negative: supple, symmetric, no JVD, no thyromegaly, no lymphadenopathy, no carotid bruit, JVD Heart: negative: RRR, no murmur, no gallops, no rubs, normal peripheral pulses, irregular, diminshed peripheral pulses, murmur present, II/IV, III/IV Respiratory: negative: CTAB, no wheezes, no rales, no ronchi, normal chest expansion, no tachypnea, normal percussion, rales, rhonchi, tachypneic, wheezes (decrease breath sounds to right lung) Hosp A/P (1) Acute respiratory failure with hypoxemia Code(s): J96.01 - ACUTE RESPIRATORY FAILURE WITH HYPOXIA Status: Acute (2) 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) Code(s): K74.69 - OTHER CIRRHOSIS OF LIVER; B19.20 - UNSPECIFIED VIRAL HEPATITIS C WITHOUT HEPATIC COMA Status: Acute (3) DM type 2 (diabetes mellitus, type 2) Status: Acute Qualifiers: 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 she is still sob and is requiring increase oxygen on ambulation. will repeat cxr. she is on iv lasix. will put her on fluid restriction. 04/01 will get abd ultrasound to see if she has ascites. she will need rehab. she might also need another thoracentesis. Her fluid was transudative.
[2019-04-01] MEDS: Lorazepam 1 MG TAB PO PRN (14:47)
[2019-04-01] MEDS: Mirtazapine 15 MG TAB PO SCH (20:58)
--- NOTE | 2019-04-01 23:57 | ULT ---
US Abdomen Limited History: Evaluate for ascites Comparison: None. Findings: Real-time grayscale evaluation of the abdomen was performed. Impression: Trace free fluid in the right hemipelvis, not enough for paracentesis.
[2019-04-02] MEDS: Furosemide 40 MG/4 ML VIAL SLOW IVP SCH ×2 (05:38→15:57)
[2019-04-02] MEDS: HumaLOG 300 UNITS/3 ML VIAL SC PRN ×2 (05:44→21:49)
[2019-04-02] MEDS: Mometasone/Formoterol 120 PUFF INHALER INH SCH ×2 (07:28→18:32)
[2019-04-02] MEDS ORDERED: Spironolactone 25 MG TAB PO SCH (08:00)
[2019-04-02] MEDS: Ferrous Sulfate 325 MG TAB PO SCH (08:54)
[2019-04-02] MEDS: Nadolol 40 MG TAB PO SCH (09:34)
[2019-04-02] MEDS: Insulin Glargine 50 UNITS in Pre-Filled Syringe 1 EACH SC SCH ×2 (09:34→21:40)
[2019-04-02] MEDS: Rifaximin 550 MG TAB PO SCH ×2 (09:35→21:40)
[2019-04-02] MEDS: Gabapentin 300 MG CAP PO SCH ×3 (09:35→21:39)
[2019-04-02] MEDS: Lisinopril 10 MG TAB PO SCH (09:35)
[2019-04-02] MEDS: Pantoprazole 40 MG VIAL IVP SCH ×2 (09:35→21:40)
--- NOTE | 2019-04-02 09:49 | RAD ---
RADIOGRAPH CHEST 1 VIEW: Date: 04/02/2019. Time: 6:59 a.m. HISTORY: A 68-year-old female with dyspnea and wheezing. COMPARISON: 03/31/2019. FINDINGS: There continues to be opacification of most of the right lung. Right apex is relatively spared. No consolidation in the left lung. Left lateral costophrenic angle is sharp. No pneumothorax. No inte rval change. IMPRESSION: 1. Moderate or large right pleural effusion with underlying consolidation of much of the right lung. 2. No interval change. JN [] POS: OFF
--- NOTE | 2019-04-02 10:03 | PRG ---
DATE OF SERVICE: 04/02/2019 SUBJECTIVE: Adrianne Miller is a 68-year-old, morbidly obese female. This morning, apparently, she had more difficulty breathing. OBJECTIVE: VITAL SIGNS: Temperature 98, pulse 70, respiratory rate 24, saturations are 97% on 4 L, blood pressure 145/65. CHEST: Decreased breath sounds, right lung. Left, unremarkable. CARDIAC: Normal S1 and S2. No gallops. ABDOMEN: No masses. IMPRESSION: Status post thoracentesis, large volume, transudate; recurrent right pleural effusion; hepatitis C, liver failure, morbid obesity, and prior sleep apnea. Pulmonary has signed off several days ago. The fluid has come back again. I suggest that they call GI to address her ongoing issues. If it comes back again, she may need a long-term indwelling catheter for a rapid recurrent pleural effusion if it cannot be controlled with p.o. medication. Job ID: [id number]
--- NOTE | 2019-04-02 16:14 | CON ---
DATE OF CONSULTATION: 04/02/2019 REQUESTING PHYSICIAN: Arlette Lloyd MD REASON FOR CONSULTATION: Cirrhosis and pleural effusion. HISTORY OF PRESENT ILLNESS: Adrianne Miller is a 68-year-old woman, seen in the GI/liver clinic by my colleague, Dr. Cordell Goldman, previously seen by Dr. Valera. She has a long history of cirrhosis secondary to hepatitis C. The hepatitis C was successfully treated in the past. Manifestations of cirrhosis have included thrombocytopenia, esophageal varices, and hepatic encephalopathy, for which she takes nadolol and lactulose as well as rifaximin on an outpatient basis. Until recently, she did not really have any issues with fluid retention. Last comprehensive liver evaluation in September, she had an MRI, showing no liver lesions, no evidence of portal thrombosis, AFB was normal. She used to follow at the transplant center in [place] with Dr. Duncan, but had decided against pursuing any liver transplant evaluation in the past. She does not drink any alcohol at this time. Over the past couple of months, she has been having periods of shortness of breath, overall progressive. She was started on Lasix 20 mg daily. She presented to the hospital at this time 4 days ago on 03/29/2019 and was found to have a large right-sided pleural effusion. She underwent thoracentesis that day of 2.5 L. Thoracentesis fluid studies demonstrated transudate, negative for infection with culture negative after 4 days. She has been receiving Lasix 40 mg IV twice daily, though her diet has been fairly liberal. Over the past 3 days, shortness of breath has returned and chest x-ray again showed large pleural effusion, so she underwent repeat thoracentesis of 2 L of fluid earlier today. She is feeling much better after the thoracentesis. She is currently eating dinner. She has no other complaints aside from the shortness of breath. PAST MEDICAL HISTORY: 1. Hepatitis C, treated. 2. Cirrhosis. 3. Hepatic encephalopathy. 4. Esophageal varices. 5. Valentin esophagus. 6. Hypertension. 7. Diabetes, type 2. 8. Obstructive sleep apnea. 9. Chronic thrombocytopenia. 10. Bipolar disorder. 11. Appendectomy. 12. Hysterectomy. 13. Right shoulder surgery. 14. Right ankle surgery. 15. Tonsillectomy. 16. Ruptured ectopic . 17. Colon polyps. ALLERGIES: INSULIN DETEMIR CAUSE RASH. OUTPATIENT MEDICATIONS: 1. Lactulose 20 g t.i.d. 2. Lantus insulin 50 units subcutaneous twice daily. 3. Gabapentin. 4. Lasix 20 mg daily. 5. Mirtazapine. 6. Nadolol 40 mg daily. 7. Lisinopril 10 mg daily. 8. Omeprazole 40 mg daily. 9. Rifaximin 550 mg twice daily. SOCIAL HISTORY: No current alcohol or tobacco. FAMILY HISTORY: Both parents of complications of alcoholism. REVIEW OF SYSTEMS: Full review of systems including constitutional; head, eyes, ears, nose, and throat; GI; ; cardiovascular; respiratory; musculoskeletal; neurologic systems is negative except as noted in the HPI. PHYSICAL EXAMINATION: VITAL SIGNS: Temperature 100 degrees Fahrenheit, pulse 73, blood pressure 112/68, and 92% oxygen saturation on 2L nasal cannula. GENERAL: No acute distress. SKIN: No jaundice. No rashes were palpable. EYES: No scleral icterus. Extraocular movements intact. ENT: Mucous membranes moist. No oral lesions. LYMPHATICS: No submandibular or supraclavicular lymphadenopathy. Thyroid nontender to palpation. HEART: Regular rate and rhythm. LUNGS: Dullness to percussion in the right lung base. No wheezing. No respiratory distress. ABDOMEN: Nondistended. Bowel sounds present. Soft and nontender to palpation. EXTREMITIES: No peripheral edema. LABORATORY STUDIES: WBC 11.4, hemoglobin 11.8, and platelets 68. INR 1.8. Sodium 139, potassium 4.0, BUN 18, creatinine 0.80, glucose 140, and calcium 7.9. Total bilirubin 0.8, alkaline phosphatase 120, AST 47, ALT 28, albumin 2.3. Pleural fluid studies from 03/29/2019 demonstrated total protein of 1.0, amylase less than 30, glucose 190, 628 wbc's, 46% lymphocytes, pH is 7.8. Pleural fluid culture shows no growth after 4 days. AFB smear on the fluid is negative. IMAGING STUDIES: Abdominal ultrasound demonstrated only a small amount of free fluid in the pelvis, not enough to perform any paracentesis. Chest x-ray from this morning demonstrates large right pleural effusion with underlying consolidation of much of the right lung. In 09/2018, MRI of the abdomen demonstrated cirrhotic liver with no evidence of liver mass. No evidence of portal thrombosis. ASSESSMENT AND PLAN: 1. Hepatic hydrothorax. 2. Cirrhosis, secondary to hepatitis C. 3. Hepatitis C, previously treated. The patient's presentation does appear indeed consistent with hepatic hydrothorax. Notably, fluid retention was not really a manifestation of her cirrhosis until recently. Other complications of cirrhosis including hepatic encephalopathy and esophageal varices. All appeared to be stable. I would like to get an ultrasound of the abdomen with Dopplers just to rule out development of portal vein thrombosis as a contributor to worsening portal hypertension. She remains on nadolol. Agree with the Lasix. We can increase the spironolactone dose to 100 mg daily. Agree with initiation of low-sodium diet, she really needs to stay under 2000 mg of sodium per day, and agree with the fluid restriction put in place as well. If pleural effusion keeps recurring and remains refractory despite increasing doses of diuretics and good adherence with low-sodium diet, then there is no real contraindication to serial thoracentesis if needed. Outcomes tend to be worse with indwelling pleural catheters, however. The patient is not a good candidate for consideration of TIPS due to her history of hepatic encephalopathy. I discussed that the only other potential measure would be reconsideration of liver transplantation, but the patient is resistant to the idea of referral for re-evaluation for this. Thank you for the consultation. Please call anytime with questions or concerns. Job ID: [id number]
--- NOTE | 2019-04-02 16:30 | ULT ---
Sonographic guided right thoracentesis HISTORY: Pleural effusion. FINDINGS: After explaining the procedure and answering all questions, sonographic survey shows large amount of free fluid in the right pleural space. Sterile technique, buffered local anesthesia, sonographic guidance, and a right posterior intercostal approach were used to carefully advance a 19- gauge Yueh needle and catheter into the right pleural fluid over the top of the rib. Catheter was left to drain a total volume of 2.0 L cloudy yellow liquid. Catheter was removed with minimal fluid r emaining. Patient tolerated the procedure well and was returned in unchanged condition. IMPRESSION: Technically successful sonographic guided right thoracentesis.
--- NOTE | 2019-04-02 19:53 | PDOC.HOSPP ---
- Subjective Encounter Date: 04/02/19 Encounter Time: 13:00 Subjective: pt up in bed eating - Objective Vital Signs & Weight: Vital Signs (12 hours) Temp Pulse Resp BP BP Pulse Ox 04/02/19 18:30 75 18 92 L 04/02/19 16:00 98.4 F 76 20 101/68 95 04/02/19 14:46 100 F H 73 20 112/68 92 L 04/02/19 13:13 76 16 95 04/02/19 12:00 98.3 F 71 20 118/74 95 04/02/19 09:35 113/79 04/02/19 08:00 97 Weight Weight 215 lb 6.266 oz Most Recent Monitor Data Heart Rate from ECG 90 NIBP 154/71 NIBP BP-Mean 98 Respiration from ECG 21 SpO2 100 I&O: 04/01/19 04/02/19 04/03/19 06:59 06:59 06:59 Intake Total 420 Balance 420 Result Diagrams: 03/30/19 22:30 04/01/19 06:01 Additional Labs: Accuchecks 04/02/19 04/02/19 04/02/19 16:19 11:24 04:18 POC Glucose 118 H 140 H 383 H 04/01/19 19:55 POC Glucose 149 H Hospitalist ROS - Review of Systems Cardiovascular: denies: chest pain, palpitations, orthopnea, paroxysmal noc. dyspnea, edema, light headedness, other Gastrointestinal: denies: nausea, vomiting, abdominal pain, diarrhea, constipation, melena, hematochezia, other Genitourinary: denies: dysuria, frequency, incontinence, hematuria, retention, other - Medication Medications: Active Medications Generic Name Dose Route Start Last Admin Trade Name Freq PRN Reason Stop Dose Admin Acetaminophen 650 mg 03/29/19 12:26 04/01/19 13:46 Tylenol PO 650 mg Q4H PRN Administration Headache/Fever/Mild Pain (1-3) Al Hydroxide/Mg Hydroxide 30 ml 03/31/19 22:52 03/31/19 22:57 Maalox PO 30 ml Q4H PRN Administration Heartburn or Indigestion Albuterol/Ipratropium 3 ml 03/31/19 13:00 04/02/19 18:30 Duoneb NEB 3 ml [id number] GORGE Administration Ferrous Sulfate 325 mg 04/01/19 08:00 04/02/19 08:54 Feosol PO Not Given QAM-WM GORGE Furosemide 40 mg 03/29/19 14:00 04/02/19 15:57 Lasix SLOW IVP 40 mg 0600,1400 GORGE Administration Gabapentin 300 mg 03/29/19 15:00 04/02/19 15:57 Neurontin PO 300 mg TID GORGE Administration Insulin Glargine 50 units/ 0.5 mls @ 0 mls/hr 03/29/19 21:00 04/02/19 09:34 Miscellaneous Medication SC 0.5 mls BID GORGE Administration Insulin Human Lispro 0 units 03/29/19 16:54 04/02/19 05:44 Humalog SC 10 unit .MODERATE SLIDING SC PRN Administration Moderate Correctional Scale Insulin Human Lispro 0 units 03/29/19 16:54 03/29/19 20:10 Humalog SC 5 unit .BEDTIME SLIDING SC PRN Administration Bedtime Correctional Scale Lactulose 10 gm 03/29/19 15:00 04/02/19 15:57 Lactulose PO 10 gm TID GORGE Administration Lisinopril 10 mg 03/30/19 09:00 04/02/19 09:35 Zestril PO 10 mg DAILY GORGE Administration Lorazepam 1 mg 04/01/19 13:58 04/01/19 14:47 Ativan PO 1 mg TID PRN Administration Anxiety Mirtazapine 15 mg 03/31/19 21:00 04/01/19 20:58 Remeron PO Not Given HS GORGE Mometasone Furoate/Formoterol Fumar 2 puff 03/31/19 18:30 04/02/19 18:32 Dulera 200 Mcg/5 Mcg Inhaler INH 2 puff BID-RT GORGE Administration Nadolol 40 mg 03/30/19 09:00 04/02/19 09:34 Corgard PO 40 mg DAILY GORGE Administration Ondansetron HCl 4 mg 03/29/19 12:26 04/02/19 08:54 Zofran Odt PO 4 mg Q6H PRN Administration Nausea/Vomiting Pantoprazole Sodium 40 mg 04/01/19 09:00 04/02/19 09:35 Protonix IVP 40 mg BID GORGE Administration Rifaximin 550 mg 03/29/19 21:00 04/02/19 09:35 Xifaxan PO 550 mg BID GORGE Administration Sodium Chloride 10 ml 03/29/19 21:00 04/02/19 09:37 Flush - Normal Saline IVF 10 ml Q12HR GORGE Administration - Exam Psychiatric - other findings: unable to assess pt since she was very agitated Hosp A/P (1) Acute respiratory failure with hypoxemia Code(s): J96.01 - ACUTE RESPIRATORY FAILURE WITH HYPOXIA Status: Acute (2) 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) Code(s): K74.69 - OTHER CIRRHOSIS OF LIVER; B19.20 - UNSPECIFIED VIRAL HEPATITIS C WITHOUT HEPATIC COMA Status: Acute (3) DM type 2 (diabetes mellitus, type 2) Status: Acute Qualifiers: 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 she is still sob and is requiring increase oxygen on ambulation. will repeat cxr. she is on iv lasix. will put her on fluid restriction. 04/01 will get abd ultrasound to see if she has ascites. she will need rehab. she might also need another thoracentesis. Her fluid was transudative. 04/02 s/p thoracentesis removed 2L will add Zaroxolyn. she was very agitated today and upset and would not listen when i would tell her the plan. family at bedside. I have encouraged her to eat low salt diet and limit he water intake. Especially since she will have recrudescence of her fluid. I have done abd ultrasound to see if she has ascites- has trace. will consult gi. will monitor.
[2019-04-02] MEDS: Mirtazapine 15 MG TAB PO SCH (21:39)
[2019-04-02] MEDS: Acetaminophen 325 MG TAB PO PRN (21:39)
[2019-04-02 23:59] LABS: Fluid, pH - Pleural Fld Greater than 7.50 (7.60 - 7.66)
[2019-04-03] MEDS: Acetaminophen 325 MG TAB PO PRN (05:40)
[2019-04-03] MEDS: Furosemide 40 MG/4 ML VIAL SLOW IVP SCH ×2 (05:44→13:49)
[2019-04-03] MEDS: Mometasone/Formoterol 120 PUFF INHALER INH SCH ×2 (06:46→19:21)
[2019-04-03 07:27] LABS: #Eosinphils 0.1 thou/uL (0.0-0.7); #Lymphocytes 1.3 thou/uL (1.20-3.40); #Monocytes 0.4 thou/uL (0.11-0.59); #Neutrophils 2.5 thou/uL (1.40-6.50); %Basophils 0.2 % (0.0-1.0); %Lymphocytes 29.8 % (21.0-51.0); %Monocytes 9.3 % (0.0-10.0); %Neutrophils 57.7 % (42.0-75.0); Hemoglobin 11.3 g/dL (12.0-16.0); Mean Corpuscular HGB CONC 32.9 g/dL (32.0-36.0); Mean Corpuscular Volume 91.3 fL (78.0-98.0); Mean Platelet Volume 9.8 fL (7.4-10.4); Platelet Count 56 thou/uL (130-400); RBC Distribution Width 14.2 % (11.5-14.5); Red Blood Cell (RBC) Count 3.77 mill/uL (4.20-5.40); White Blood Cell (WBC) Count 4.4 thou/uL (4.8-10.8)
--- NOTE | 2019-04-03 07:44 | ULT ---
Hepatic ultrasound with duplex evaluation INDICATION: Concern for portal vein thrombosis; abdominal pain with nausea vomiting and diarrhea TECHNIQUE: Grayscale, color Doppler and spectral Doppler images were obtained of the liver, gallbladd er, common bile duct, pancreas, right kidney and spleen. COMPARISON: None FINDINGS: Exam detail is limited due to respiratory motion artifact and the patient's inability to reyes spend respirations during the examination. Liver: There is slight lobulated contour to the liver. The liver measures 14.1 cm. Hepatic vasculature: Left hepatic vein: Appropriate flow. Middle hepatic vein: Appropriate flow. Right hepatic vein: Appropriate flow. Hepatic artery: Hepatopedal flow. Main portal vein: There is a limited hepatopedal flow seen within the main portal vein suspicious for partial thrombus. Right portal vein: Slightly reduced hepatopedal flow Left portal vein: Slightly reduced hepatopedal flow Splenic artery: Appropriate flow. Splenic vein: Hepatopedal flow. Aorta: Appropriate flow. IVC: Appropriate flow. Gallbladder: Normal appearing. Common bile duct: 3.8 mm. Pancreas: Pancreas was obscured by overlying bowel gas Right kidney: Visualized right kidney demonstrated no focal renal lesion or hydronephrosis Spleen: The spleen measured 13.2cm in length. IMPRESSION: 1. Cirrhotic morphology of the liver. Reduced to antegrade hepatopedal flow within the main portal ve in and right and left portal branches. Findings are suspicious for partial portal vein thrombosis. Recommend MRI of the abdomen with and without contrast for further interrogation. 2. Mild splenomegaly
[2019-04-03 07:49] LABS: Anion Gap 9 mmol/L (10-20); Carbon Dioxide 35 mmol/L (23-31); Chloride 100 mmol/L (98-107); Potassium 3.5 mmol/L (3.5-5.1); Sodium 140 mmol/L (136-145)
[2019-04-03 07:51] LABS: BUN (Urea Nitrogen) 17 mg/dL (9.8-20.1); Calc. Creatinine Clearance 105 mL/min (70-130); Estimated GFR-MDRD 73; Globulin 3.5 g/dL (2.4-3.5); Glucose 199 mg/dL (80-115); Protein, Total 5.7 g/dL (6.0-8.3)
[2019-04-03 07:52] LABS: ALT (SGPT) 29 U/L (8-55); AST (SGOT) 45 U/L (5-34); Albumin 2.2 g/dL (3.4-4.8); Alkaline Phosphatase 124 U/L (40-110); Bilirubin, Total 0.9 mg/dL (0.2-1.2); Calcium 8.1 mg/dL (7.8-10.44)
[2019-04-03] MEDS: Pantoprazole 40 MG VIAL IVP SCH ×2 (08:43→20:56)
[2019-04-03] MEDS: Metolazone 5 MG TAB PO SCH (08:46)
[2019-04-03] MEDS: Ferrous Sulfate 325 MG TAB PO SCH (08:46)
[2019-04-03] MEDS: Spironolactone 100 MG TAB PO SCH (08:46)
[2019-04-03] MEDS: Rifaximin 550 MG TAB PO SCH ×2 (08:46→20:56)
[2019-04-03] MEDS: Nadolol 40 MG TAB PO SCH (08:46)
[2019-04-03] MEDS: Gabapentin 300 MG CAP PO SCH ×3 (08:47→20:56)
[2019-04-03] MEDS: Lisinopril 10 MG TAB PO SCH (08:47)
[2019-04-03] MEDS: Insulin Glargine 50 UNITS in Pre-Filled Syringe 1 EACH SC SCH ×2 (08:48→20:56)
--- NOTE | 2019-04-03 13:04 | PDOC.HOSPP ---
- Subjective Encounter Date: 04/03/19 Encounter Time: 12:45 Subjective: pt up in chair eating, when i was about to do my physical exam she stated that i needed to wait until she is done eating her lunch. - Objective Vital Signs & Weight: Vital Signs (12 hours) Temp Pulse Resp BP BP Pulse Ox 04/03/19 12:24 98.5 F 107 H 16 123/77 95 04/03/19 08:47 126/76 04/03/19 08:00 99 04/03/19 07:18 97.9 F 63 16 126/76 99 04/03/19 06:49 78 16 91 L 04/03/19 06:46 91 16 91 L 04/03/19 06:19 98.0 F 60 22 H 121/75 98 Weight Weight 215 lb 6.266 oz Most Recent Monitor Data Heart Rate from ECG 90 NIBP 154/71 NIBP BP-Mean 98 Respiration from ECG 21 SpO2 100 I&O: 04/02/19 04/03/19 04/04/19 06:59 06:59 06:59 Intake Total 360 Balance 360 Result Diagrams: 04/03/19 06:57 04/03/19 06:57 Additional Labs: Accuchecks 04/03/19 04/02/19 04/02/19 05:51 20:07 16:19 POC Glucose 188 H 225 H 118 H Hospitalist ROS - Review of Systems Other: unable to obtain - Medication Medications: Active Medications Generic Name Dose Route Start Last Admin Trade Name Freq PRN Reason Stop Dose Admin Acetaminophen 650 mg 03/29/19 12:26 04/03/19 05:40 Tylenol PO 650 mg Q4H PRN Administration Headache/Fever/Mild Pain (1-3) Al Hydroxide/Mg Hydroxide 30 ml 03/31/19 22:52 03/31/19 22:57 Maalox PO 30 ml Q4H PRN Administration Heartburn or Indigestion Albuterol/Ipratropium 3 ml 03/31/19 13:00 04/03/19 06:49 Duoneb NEB 3 ml [id number] GORGE Administration Ferrous Sulfate 325 mg 04/01/19 08:00 04/03/19 08:46 Feosol PO 325 mg QAM-WM GORGE Administration Furosemide 40 mg 03/29/19 14:00 04/03/19 05:44 Lasix SLOW IVP 40 mg 0600,1400 GORGE Administration Gabapentin 300 mg 03/29/19 15:00 04/03/19 08:47 Neurontin PO 300 mg TID GORGE Administration Insulin Glargine 50 units/ 0.5 mls @ 0 mls/hr 03/29/19 21:00 04/03/19 08:48 Miscellaneous Medication SC 0.5 mls BID GORGE Administration Insulin Human Lispro 0 units 03/29/19 16:54 04/02/19 05:44 Humalog SC 10 unit .MODERATE SLIDING SC PRN Administration Moderate Correctional Scale Insulin Human Lispro 0 units 03/29/19 16:54 04/02/19 21:49 Humalog SC 2 unit .BEDTIME SLIDING SC PRN Administration Bedtime Correctional Scale Lactulose 10 gm 03/29/19 15:00 04/03/19 08:43 Lactulose PO 10 gm TID GORGE Administration Lisinopril 10 mg 03/30/19 09:00 04/03/19 08:47 Zestril PO 10 mg DAILY GORGE Administration Lorazepam 1 mg 04/01/19 13:58 04/01/19 14:47 Ativan PO 1 mg TID PRN Administration Anxiety Metolazone 5 mg 04/03/19 08:30 04/03/19 08:46 Zaroxolyn PO 5 mg 0830 GORGE Administration Mirtazapine 15 mg 03/31/19 21:00 04/02/19 21:39 Remeron PO 15 mg HS GORGE Administration Mometasone Furoate/Formoterol Fumar 2 puff 03/31/19 18:30 04/03/19 06:46 Dulera 200 Mcg/5 Mcg Inhaler INH 2 puff BID-RT GORGE Administration Nadolol 40 mg 03/30/19 09:00 04/03/19 08:46 Corgard PO 40 mg DAILY GORGE Administration Ondansetron HCl 4 mg 03/29/19 12:26 04/02/19 08:54 Zofran Odt PO 4 mg Q6H PRN Administration Nausea/Vomiting Pantoprazole Sodium 40 mg 04/01/19 09:00 04/03/19 08:43 Protonix IVP 40 mg BID GORGE Administration Rifaximin 550 mg 03/29/19 21:00 04/03/19 08:46 Xifaxan PO 550 mg BID GORGE Administration Sodium Chloride 10 ml 03/29/19 21:00 04/03/19 08:48 Flush - Normal Saline IVF 10 ml Q12HR GORGE Administration Spironolactone 100 mg 04/03/19 08:00 04/03/19 08:46 Aldactone PO 100 mg QAM-WM GORGE Administration - Exam Respiratory: negative: CTAB, no wheezes, no rales, no ronchi, normal chest expansion, no tachypnea, normal percussion, rales, rhonchi, tachypneic, wheezes Psychiatric - other findings: unable to perform Hosp A/P (1) Acute respiratory failure with hypoxemia Code(s): J96.01 - ACUTE RESPIRATORY FAILURE WITH HYPOXIA Status: Acute (2) 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) Code(s): K74.69 - OTHER CIRRHOSIS OF LIVER; B19.20 - UNSPECIFIED VIRAL HEPATITIS C WITHOUT HEPATIC COMA Status: Acute (3) DM type 2 (diabetes mellitus, type 2) Status: Acute Qualifiers: 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 she is still sob and is requiring increase oxygen on ambulation. will repeat cxr. she is on iv lasix. will put her on fluid restriction. 04/01 will get abd ultrasound to see if she has ascites. she will need rehab. she might also need another thoracentesis. Her fluid was transudative. 04/02 s/p thoracentesis removed 2L will add Zaroxolyn. she was very agitated today and upset and would not listen when i would tell her the plan. family at bedside. I have encouraged her to eat low salt diet and limit he water intake. Especially since she will have recrudescence of her fluid. I have done abd ultrasound to see if she has ascites- has trace. will consult gi. will monitor. 04/03 pt could not stop eating for me to do a physical exam. I will not be seeing her anymore. i have mentioned this to her and her family who are at her bedside.
--- NOTE | 2019-04-03 16:14 | PRG ---
DATE OF SERVICE: 04/03/2019 SUBJECTIVE: Ms. Miller is feeling okay. She was able to get up and around with physical therapy today, only shortness of breath near the end of the session. She feels she is doing okay on sodium and fluid restriction. No other new complaints. Her abdominal ultrasound with Dopplers suggested possible partial portal vein thrombus with anterograde flow in the portal vein and right and left portal veins. OBJECTIVE: VITAL SIGNS: Temperature 98.5, pulse 107, 95% oxygen saturation on 3 L nasal cannula. Blood pressure is 82/55. GENERAL: No acute distress. HEART: Regular rate and rhythm. LUNGS: Diminished breath sounds in the right base. No wheezing. No respiratory distress. ABDOMEN: Nondistended. Bowel sounds present. Soft and nontender to palpation. EXTREMITIES: No peripheral edema. LABORATORY STUDIES: WBC 4.4, hemoglobin 11.3, platelets 56. INR 1.8. Sodium 140, potassium 3.5, BUN 17, creatinine 0.78, glucose 199, total bilirubin 0.9, alkaline phosphatase 124, AST 45, ALT 29, albumin 2.2. IMAGING STUDIES: Abdominal ultrasound with Dopplers was performed early this morning. This demonstrated limited hepatopetal flow in the main portal vein and reduced hepatopetal flow in the right and left portal veins, suspicious for possible partial portal vein thrombosis, cirrhotic liver morphology, and mild splenomegaly. Normal gallbladder. ASSESSMENT AND PLAN: 1. Hepatic hydrothorax. She is now status post thoracentesis x2 with total of 4.5 L removed this admission. Continue with diuretics, low-sodium diet and fluid restriction. 2. Possible portal vein thrombosis. The ultrasound with Dopplers was suggestive of possible partial thrombosis of the portal vein. If present, this could potentially account for her recently worsening portal hypertension and hepatic hydrothorax. There was no portal thrombosis noted on prior MRI in September 2018. I will order a repeat MRI with and without contrast to assess for this now. 3. Cirrhosis. Other complications including hepatic encephalopathy and esophageal varices are all stable at this time. Job ID: [id number]
[2019-04-03] MEDS: HumaLOG 300 UNITS/3 ML VIAL SC PRN (17:36)
--- NOTE | 2019-04-03 18:19 | MRI ---
MRI ABDOMEN WITH AND WITHOUT IV CONTRAST: 04/03/19 HISTORY: Concern for portal vein thrombosis. Abdominal pain with nausea, vomiting and diarrhea. COMPARISON: 09/06/18 CORRELATION: Hepatic Doppler of the same date. FINDINGS: The spleen is enlarged measuring 14.5 cm in length. No gallstones are seen. A tiny amount of free flu id is again seen in the upper abdomen. The pancreas, adrenal glands, and right kidney appear normal. Subcentimeter cyst in the left kidney is stable. No lymphadenopathy is noted. The marrow signal is no rmal. The liver has a nodular and irregular surface consistent with cirrhosis. No enhancing hepatic mass is seen. There is continued narrowing of the intrahepatic portal veins with retroperitoneal and splenic varices and left splenorenal shunt. No filling defects are seen to suggest portal or splenic vein th rombosis. IMPRESSION: 1. Cirrhosis of the liver with portal hypertension. No evidence of enhancing liver mass. 2. No evidence of portal vein thrombosis. 3. Minimal ascites. 4. Left renal cyst. 5. Splenomegaly. POS: [facility]
[2019-04-03] MEDS: Mirtazapine 15 MG TAB PO SCH (20:56)
[2019-04-04] MEDS: Furosemide 40 MG/4 ML VIAL SLOW IVP SCH ×3 (06:28→14:26)
[2019-04-04] MEDS: Mometasone/Formoterol 120 PUFF INHALER INH SCH ×2 (06:53→18:59)
[2019-04-04] MEDS: Insulin Glargine 50 UNITS in Pre-Filled Syringe 1 EACH SC SCH ×2 (08:06→21:31)
[2019-04-04] MEDS: Nadolol 40 MG TAB PO SCH (08:07)
[2019-04-04] MEDS: Gabapentin 300 MG CAP PO SCH ×3 (08:07→21:27)
[2019-04-04] MEDS: Ferrous Sulfate 325 MG TAB PO SCH (08:07)
[2019-04-04] MEDS: Spironolactone 100 MG TAB PO SCH (08:07)
[2019-04-04] MEDS: Metolazone 5 MG TAB PO SCH (08:07)
[2019-04-04] MEDS: Rifaximin 550 MG TAB PO SCH ×2 (08:07→21:27)
[2019-04-04] MEDS: Pantoprazole 40 MG VIAL IVP SCH ×2 (08:08→21:28)
[2019-04-04] MEDS: Lorazepam 1 MG TAB PO PRN (08:08)
[2019-04-04] MEDS: Lisinopril 10 MG TAB PO SCH (08:08)
[2019-04-04 08:32] LABS: RBC Count-Automated (BF) 1857 /cumm; WBC/Nucleated-Auto (BF) 343 uL
[2019-04-04 08:33] LABS: BF Color Yellow; Body Fluid Source Thoracentesis Fluid
[2019-04-04 08:34] LABS: Clarity Hazy (Clear); Tube # EDTA
[2019-04-04 10:10] LABS: BF Segmented Neutrophils 2 %; Cell Count Non Hematic 67 %; Lymphocytes 31 %
[2019-04-04 12:42] LABS: BUN (Urea Nitrogen) 18 mg/dL (9.8-20.1); Calc. Creatinine Clearance 100 mL/min (70-130); Calcium 8.6 mg/dL (7.8-10.44); Estimated GFR-MDRD 69; Glucose 183 mg/dL (80-115)
[2019-04-04 12:54] LABS: Anion Gap 9 mmol/L (10-20); Carbon Dioxide 36 mmol/L (23-31); Chloride 96 mmol/L (98-107); Potassium 3.5 mmol/L (3.5-5.1); Sodium 137 mmol/L (136-145)
--- NOTE | 2019-04-04 13:01 | PRG ---
DATE OF SERVICE: 04/04/2019 SUBJECTIVE: Ms. Miller is feeling about the same today, doing fairly well. No significant shortness of breath. No cough. No abdominal pain. She is tolerating her diet. OBJECTIVE: VITAL SIGNS: Temperature 98.6, pulse 68, blood pressure 123/75, and 97% oxygen saturation on 3 L nasal cannula. GENERAL: In no acute distress. HEART: Regular rate and rhythm. LUNGS: Decreased breath sounds in the right base. No wheezing. ABDOMEN: Obese, nondistended, nontender to palpation. EXTREMITIES: No peripheral edema. IMAGING STUDIES: Her abdominal MRI from yesterday demonstrated no evidence of portal vein thrombosis. She has cirrhotic liver configuration with no evidence of liver mass. There is evidence of portal hypertension with retroperitoneal and splenic varices and left splenorenal shunt. Minimal ascites. ASSESSMENT AND PLAN: 1. Hepatic hydrothorax, status post 2 thoracentesis with total removal of 4.5 L in this admission. Continue with diuretics, low-sodium diet, and fluid restriction. 2. Cirrhosis. Other complications including hepatic encephalopathy and esophageal varices are all stable at this time. Hopefully, with good adherence to diuretics and low-sodium diet, the patient will not require very frequent serial thoracentesis. She will need to follow up with Dr. Goldman [facility] in the next 2 to 3 weeks. No other new recommendations from a GI perspective at this time. Dr. Marino will be covering for GI over the long weekend. Please call with questions or concerns. Job ID: [id number]
--- NOTE | 2019-04-04 13:34 | PDOC.HOSPP ---
- Subjective Subjective: Seen and examined. Patient feeling better overall. No lower extremity edema. Breathing more comfortably. I counseled the patient on fluid and salt restrictions, she states that she will be more compliant. All questions answered in detail. - Objective Vital Signs & Weight: Vital Signs (12 hours) Temp Pulse Resp BP BP Pulse Ox Pulse Ox 04/04/19 11:09 125/71 96 04/04/19 08:41 98.6 F 68 20 123/75 97 04/04/19 06:51 62 14 98 Weight Weight 215 lb 6.266 oz Most Recent Monitor Data Heart Rate from ECG 90 NIBP 154/71 NIBP BP-Mean 98 Respiration from ECG 21 SpO2 100 I&O: 04/03/19 04/04/19 04/05/19 06:59 06:59 06:59 Intake Total 360 400 Balance 360 400 Result Diagrams: 04/03/19 06:57 04/04/19 11:55 Additional Labs: Accuchecks 04/04/19 04/04/19 04/04/19 11:31 06:31 00:30 POC Glucose 174 H 99 185 H 04/03/19 04/03/19 04/03/19 20:31 17:23 11:57 POC Glucose 171 H 173 H 182 H Radiology Reviewed by me: Yes Hospitalist ROS - Review of Systems All other systems reviewed; all pertinent +/- noted in HPI/Subj - Medication Medications: Active Medications Generic Name Dose Route Start Last Admin Trade Name Freq PRN Reason Stop Dose Admin Acetaminophen 650 mg 03/29/19 12:26 04/03/19 05:40 Tylenol PO 650 mg Q4H PRN Administration Headache/Fever/Mild Pain (1-3) Al Hydroxide/Mg Hydroxide 30 ml 03/31/19 22:52 03/31/19 22:57 Maalox PO 30 ml Q4H PRN Administration Heartburn or Indigestion Albuterol/Ipratropium 3 ml 03/31/19 13:00 04/04/19 13:01 Duoneb NEB Not Given [id number] GORGE Ferrous Sulfate 325 mg 04/01/19 08:00 04/04/19 08:07 Feosol PO 325 mg QAM-WM GORGE Administration Furosemide 40 mg 03/29/19 14:00 04/04/19 06:28 Lasix SLOW IVP 40 mg 0600,1400 GORGE Administration Gabapentin 300 mg 03/29/19 15:00 04/04/19 08:07 Neurontin PO 300 mg TID GORGE Administration Insulin Glargine 50 units/ 0.5 mls @ 0 mls/hr 03/29/19 21:00 04/04/19 08:06 Miscellaneous Medication SC 0.5 mls BID GORGE Administration Insulin Human Lispro 0 units 03/29/19 16:54 04/03/19 17:36 Humalog SC 2 unit .MODERATE SLIDING SC PRN Administration Moderate Correctional Scale Insulin Human Lispro 0 units 03/29/19 16:54 04/02/19 21:49 Humalog SC 2 unit .BEDTIME SLIDING SC PRN Administration Bedtime Correctional Scale Lactulose 10 gm 03/29/19 15:00 04/04/19 08:07 Lactulose PO 10 gm TID GORGE Administration Lisinopril 10 mg 03/30/19 09:00 04/04/19 08:08 Zestril PO 10 mg DAILY GORGE Administration Lorazepam 1 mg 04/01/19 13:58 04/04/19 08:08 Ativan PO 1 mg TID PRN Administration Anxiety Metolazone 5 mg 04/03/19 08:30 04/04/19 08:07 Zaroxolyn PO 5 mg 0830 GORGE Administration Mirtazapine 15 mg 03/31/19 21:00 04/03/19 20:56 Remeron PO 15 mg HS GORGE Administration Mometasone Furoate/Formoterol Fumar 2 puff 03/31/19 18:30 04/04/19 06:53 Dulera 200 Mcg/5 Mcg Inhaler INH 2 puff BID-RT GORGE Administration Nadolol 40 mg 03/30/19 09:00 04/04/19 08:07 Corgard PO 40 mg DAILY GORGE Administration Ondansetron HCl 4 mg 03/29/19 12:26 04/02/19 08:54 Zofran Odt PO 4 mg Q6H PRN Administration Nausea/Vomiting Pantoprazole Sodium 40 mg 04/01/19 09:00 04/04/19 08:08 Protonix IVP 40 mg BID GORGE Administration Rifaximin 550 mg 03/29/19 21:00 04/04/19 08:07 Xifaxan PO 550 mg BID GORGE Administration Sodium Chloride 10 ml 03/29/19 21:00 04/04/19 07:23 Flush - Normal Saline IVF Not Given Q12HR GORGE Spironolactone 100 mg 04/03/19 08:00 04/04/19 08:07 Aldactone PO 100 mg QAM-WM GORGE Administration - Exam General Appearance: NAD, awake alert Eye: anicteric sclera ENT: normocephalic atraumatic, moist mucosa Neck: supple, symmetric, no lymphadenopathy Heart: RRR, no murmur, no gallops, no rubs Respiratory: CTAB, no wheezes, no rales Respiratory - other findings: Deminished breath sounds bilateral lower lung renner Gastrointestinal: soft, non-tender, no guarding, no rigidity Extremities: no edema Skin: no lesions, no rashes Neurological: cranial nerve grossly intact, no focal deficits Musculoskeletal: generalized weakness Psychiatric: normal affect, A&O x 3 Hosp A/P (1) Acute respiratory failure with hypoxemia Code(s): J96.01 - ACUTE RESPIRATORY FAILURE WITH HYPOXIA Status: Acute (2) 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) Code(s): K74.69 - OTHER CIRRHOSIS OF LIVER; B19.20 - UNSPECIFIED VIRAL HEPATITIS C WITHOUT HEPATIC COMA Status: Chronic (3) DM type 2 (diabetes mellitus, type 2) Status: Chronic Qualifiers: Diabetes mellitus 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: with retirement use Diabetes mellitus complication status: without complication Qualified Code(s): E11.9 - Type 2 diabetes mellitus without complications; Z79.4 - intermediate (current) use of insulin (4) Pleural effusion, right Code(s): J90 - PLEURAL EFFUSION, NOT ELSEWHERE CLASSIFIED Status: Resolved (5) Thrombocytopenia Code(s): D69.6 - THROMBOCYTOPENIA, UNSPECIFIED Status: Chronic (6) Encephalopathy acute Code(s): G93.40 - ENCEPHALOPATHY, UNSPECIFIED Status: Acute (7) Hypertension Code(s): I10 - ESSENTIAL (PRIMARY) HYPERTENSION Status: Chronic (8) Liver cirrhosis Code(s): K74.60 - UNSPECIFIED CIRRHOSIS OF LIVER Status: Chronic - Plan Plan: medical unit gastroenterology consultation, recommendations appreciated diuretic therapy to help further prevent hydrothorax status post thoracentesis times two 4.5 L of fluid removed from the lung space fluid restrictions salt restrictions continue other home medications as able blood pressure control DVT prophylaxis MRI abdomen does not demonstrate vein thrombosis and no oral and coagulation is required ultrasound of the abdomen was concerning for partial portal vein thrombosis, however MRI refutes this disposition: planning for senior care facility placement for continuation of physical therapy and occupational therapy and inpatient setting.
[2019-04-04] MEDS: Mirtazapine 15 MG TAB PO SCH (21:27)
[2019-04-05 05:52] LABS: BUN (Urea Nitrogen) 24 mg/dL (9.8-20.1); Calc. Creatinine Clearance 90 mL/min (70-130); Calcium 8.7 mg/dL (7.8-10.44); Estimated GFR-MDRD 61; Glucose 77 mg/dL (80-115)
[2019-04-05 06:01] LABS: Anion Gap 7 mmol/L (10-20); Carbon Dioxide 37 mmol/L (23-31); Chloride 98 mmol/L (98-107); Potassium 3.4 mmol/L (3.5-5.1); Sodium 139 mmol/L (136-145)
[2019-04-05] MEDS: Mometasone/Formoterol 120 PUFF INHALER INH SCH ×2 (06:46→19:05)
[2019-04-05] MEDS: Insulin Glargine 50 UNITS in Pre-Filled Syringe 1 EACH SC SCH ×2 (09:39→21:05)
[2019-04-05] MEDS: Rifaximin 550 MG TAB PO SCH ×2 (09:40→21:06)
[2019-04-05] MEDS: Lisinopril 10 MG TAB PO SCH (09:40)
[2019-04-05] MEDS: Nadolol 40 MG TAB PO SCH (09:40)
[2019-04-05] MEDS: Metolazone 5 MG TAB PO SCH (09:41)
[2019-04-05] MEDS: Ferrous Sulfate 325 MG TAB PO SCH (09:41)
[2019-04-05] MEDS: Spironolactone 100 MG TAB PO SCH (09:43)
[2019-04-05] MEDS: Furosemide 40 MG TAB PO SCH ×2 (09:44→14:14)
[2019-04-05] MEDS: Gabapentin 300 MG CAP PO SCH ×3 (09:44→21:06)
[2019-04-05] MEDS: Pantoprazole 40 MG VIAL IVP SCH ×2 (09:45→21:06)
--- NOTE | 2019-04-05 12:04 | PDOC.HOSPP ---
- Subjective Subjective: Patient seen and examined. Patient had confusion in the night and was agitated, frequently getting out of bed. Patient having several bowel movements which are solid informed, in patient's confusion I was informed by nursing staff that the patient was holding her bowel movements in her hands. Patient with hepatitis C and cirrhosis, who is third spacing fluid in the pleural space status post thoracentesis times two with 4.5 L of fluid removed on this hospitalization. Likely hepatic encephalopathy is contributing to patient's clinical presentation. Patient has been on lactulose therapy though her bowel movements are solid. Added ammonia level found to be elevated at 108 today. Increase lactulose, may need to titrate to loose stool. - Objective Vital Signs & Weight: Vital Signs (12 hours) Temp Pulse Resp BP Pulse Ox 04/05/19 07:36 97.8 F 51 L 18 158/74 H 94 L 04/05/19 06:44 62 14 96 04/05/19 04:00 97.6 F 62 16 138/75 96 04/05/19 00:23 63 16 91 L Weight Weight 215 lb 6.266 oz Most Recent Monitor Data Heart Rate from ECG 90 NIBP 154/71 NIBP BP-Mean 98 Respiration from ECG 21 SpO2 100 I&O: 04/04/19 04/05/19 04/06/19 06:59 06:59 06:59 Intake Total 400 360 Balance 400 360 Result Diagrams: 04/03/19 06:57 04/05/19 05:14 Additional Labs: Accuchecks 04/05/19 04/05/19 04/05/19 09:51 06:14 05:27 POC Glucose 105 127 H 70 04/05/19 04/04/19 04/04/19 04:11 21:33 15:42 POC Glucose 88 273 H 146 H Radiology Reviewed by me: Yes Hospitalist ROS - Review of Systems All other systems reviewed; all pertinent +/- noted in HPI/Subj - Medication Medications: Active Medications Generic Name Dose Route Start Last Admin Trade Name Freq PRN Reason Stop Dose Admin Acetaminophen 650 mg 03/29/19 12:26 04/03/19 05:40 Tylenol PO 650 mg Q4H PRN Administration Headache/Fever/Mild Pain (1-3) Al Hydroxide/Mg Hydroxide 30 ml 03/31/19 22:52 03/31/19 22:57 Maalox PO 30 ml Q4H PRN Administration Heartburn or Indigestion Albuterol/Ipratropium 3 ml 03/31/19 13:00 04/05/19 06:44 Duoneb NEB 3 ml [id number] GORGE Administration Ferrous Sulfate 325 mg 04/01/19 08:00 04/05/19 09:41 Feosol PO 325 mg QAM-WM GORGE Administration Furosemide 40 mg 04/05/19 09:00 04/05/19 09:44 Lasix PO 40 mg 0900,1400 GORGE Administration Gabapentin 300 mg 03/29/19 15:00 04/05/19 09:44 Neurontin PO 300 mg TID GORGE Administration Insulin Glargine 50 units/ 0.5 mls @ 0 mls/hr 03/29/19 21:00 04/05/19 09:39 Miscellaneous Medication SC Not Given BID GORGE Insulin Human Lispro 0 units 03/29/19 16:54 04/03/19 17:36 Humalog SC 2 unit .MODERATE SLIDING SC PRN Administration Moderate Correctional Scale Insulin Human Lispro 0 units 03/29/19 16:54 04/02/19 21:49 Humalog SC 2 unit .BEDTIME SLIDING SC PRN Administration Bedtime Correctional Scale Lisinopril 10 mg 03/30/19 09:00 04/05/19 09:40 Zestril PO 10 mg DAILY GORGE Administration Lorazepam 1 mg 04/01/19 13:58 04/04/19 08:08 Ativan PO 1 mg TID PRN Administration Anxiety Metolazone 5 mg 04/03/19 08:30 04/05/19 09:41 Zaroxolyn PO 5 mg 0830 GORGE Administration Mirtazapine 15 mg 03/31/19 21:00 04/04/19 21:27 Remeron PO 15 mg HS GORGE Administration Mometasone Furoate/Formoterol Fumar 2 puff 03/31/19 18:30 04/05/19 06:46 Dulera 200 Mcg/5 Mcg Inhaler INH 2 puff BID-RT GORGE Administration Nadolol 40 mg 03/30/19 09:00 04/05/19 09:40 Corgard PO 40 mg DAILY GORGE Administration Ondansetron HCl 4 mg 03/29/19 12:26 04/02/19 08:54 Zofran Odt PO 4 mg Q6H PRN Administration Nausea/Vomiting Pantoprazole Sodium 40 mg 04/01/19 09:00 04/05/19 09:45 Protonix IVP 40 mg BID GORGE Administration Rifaximin 550 mg 03/29/19 21:00 04/05/19 09:40 Xifaxan PO 550 mg BID GORGE Administration Sodium Chloride 10 ml 03/29/19 21:00 04/05/19 08:12 Flush - Normal Saline IVF Not Given Q12HR GORGE Spironolactone 100 mg 04/03/19 08:00 04/05/19 09:43 Aldactone PO 100 mg QAM-WM GORGE Administration - Exam General Appearance: NAD Eye: PERRL ENT: normocephalic atraumatic, moist mucosa Neck: supple, symmetric, no lymphadenopathy Heart: no murmur, no gallops, no rubs Respiratory: CTAB, no wheezes, no rales, no ronchi Gastrointestinal: soft, non-tender, non-distended, no guarding, no rigidity Extremities: no clubbing, no edema Skin: no lesions, no rashes Neurological: cranial nerve grossly intact, no focal deficits Neurological - other findings: Hepatic encephalopathy Musculoskeletal: generalized weakness Psychiatric: oriented to person Hosp A/P (1) Acute respiratory failure with hypoxemia Code(s): J96.01 - ACUTE RESPIRATORY FAILURE WITH HYPOXIA Status: Acute (2) 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) Code(s): K74.69 - OTHER CIRRHOSIS OF LIVER; B19.20 - UNSPECIFIED VIRAL HEPATITIS C WITHOUT HEPATIC COMA Status: Chronic (3) DM type 2 (diabetes mellitus, type 2) Status: Chronic Qualifiers: 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: with m[facility]p use Diabetes mellitus complication status: without complication Qualified Code(s): E11.9 - Type 2 diabetes mellitus without complications; Z79.4 - shelter (current) use of insulin (4) Pleural effusion, right Code(s): J90 - PLEURAL EFFUSION, NOT ELSEWHERE CLASSIFIED Status: Resolved (5) Thrombocytopenia Code(s): D69.6 - THROMBOCYTOPENIA, UNSPECIFIED Status: Chronic (6) Encephalopathy acute Code(s): G93.40 - ENCEPHALOPATHY, UNSPECIFIED Status: Acute (7) Hypertension Code(s): I10 - ESSENTIAL (PRIMARY) HYPERTENSION Status: Chronic (8) Liver cirrhosis Code(s): K74.60 - UNSPECIFIED CIRRHOSIS OF LIVER Status: Chronic - Plan Plan: medical unit gastroenterology consultation, recommendations appreciated Hepatic encephalopathy with elevated ammonia of 108 on 04/05 Increase Lactulose, titrate to loose BM If does not improve with Lactulose alone at escalating doses, would consider Rifaximine diuretic therapy to help further prevent hydrothorax status post thoracentesis times two 4.5 L of fluid removed from the pleural space fluid restrictions salt restrictions continue other home medications as able blood pressure control DVT prophylaxis MRI abdomen does not demonstrate vein thrombosis and no oral and coagulation is required ultrasound of the abdomen was concerning for partial portal vein thrombosis, however MRI refutes this disposition: planning for [facility] facility placement for continuation of physical therapy and occupational therapy and inpatient setting.
[2019-04-05] MEDS: Mirtazapine 15 MG TAB PO SCH (21:06)
[2019-04-06 05:48] LABS: Anion Gap 11 mmol/L (10-20); BUN (Urea Nitrogen) 21 mg/dL (9.8-20.1); Calc. Creatinine Clearance 109 mL/min (70-130); Carbon Dioxide 33 mmol/L (23-31); Chloride 99 mmol/L (98-107); Estimated GFR-MDRD 78; Glucose 86 mg/dL (80-115); Potassium 3.6 mmol/L (3.5-5.1); Sodium 139 mmol/L (136-145)
[2019-04-06] MEDS: Mometasone/Formoterol 120 PUFF INHALER INH SCH ×2 (06:34→18:34)
[2019-04-06] MEDS: Lorazepam 1 MG TAB PO PRN (08:43)
[2019-04-06] MEDS: Metolazone 5 MG TAB PO SCH (08:44)
[2019-04-06] MEDS: Nadolol 40 MG TAB PO SCH (08:44)
[2019-04-06] MEDS: Furosemide 40 MG TAB PO SCH ×2 (08:44→13:53)
[2019-04-06] MEDS: Rifaximin 550 MG TAB PO SCH ×2 (08:44→20:20)
[2019-04-06] MEDS: Gabapentin 300 MG CAP PO SCH ×3 (08:44→20:17)
[2019-04-06] MEDS: Lisinopril 10 MG TAB PO SCH (08:44)
[2019-04-06] MEDS: Insulin Glargine 50 UNITS in Pre-Filled Syringe 1 EACH SC SCH ×2 (08:45→20:18)
[2019-04-06] MEDS: Spironolactone 100 MG TAB PO SCH (08:45)
[2019-04-06] MEDS: Ferrous Sulfate 325 MG TAB PO SCH (08:45)
[2019-04-06] MEDS: Pantoprazole 40 MG VIAL IVP SCH ×2 (08:45→20:20)
--- NOTE | 2019-04-06 10:23 | PDOC.HOSPP ---
- Subjective Subjective: Seen and examined. Clinically improved on higher dose of lactulose. Patient alert and oriented this morning to her baseline. She is still slow to answer some questions. I encourage patient to continue to have oral intake of food so that she can continue to heal. All questions answered in detail. Discuss case with case management who is working on placement and correction facility. - Objective Vital Signs & Weight: Vital Signs (12 hours) Temp Pulse Resp BP BP Pulse Ox 04/06/19 08:44 126/76 04/06/19 08:00 98.6 F 74 16 137/74 99 04/06/19 06:37 94 L 04/06/19 06:36 65 16 94 L 04/06/19 06:34 65 16 94 L 04/06/19 04:32 98.3 F 67 18 114/72 96 04/06/19 00:18 65 16 04/06/19 00:08 97.2 F L 64 18 103/67 98 Weight Weight 215 lb 6.266 oz Most Recent Monitor Data Heart Rate from ECG 90 NIBP 154/71 NIBP BP-Mean 98 Respiration from ECG 21 SpO2 100 I&O: 04/05/19 04/06/19 04/07/19 06:59 06:59 06:59 Intake Total 360 960 Balance 360 960 Result Diagrams: 04/03/19 06:57 04/06/19 05:14 Additional Labs: Accuchecks 04/06/19 04/05/19 04/05/19 04:52 20:05 16:48 POC Glucose 94 102 107 04/05/19 12:36 POC Glucose 99 Radiology Reviewed by me: Yes Hospitalist ROS - Review of Systems All other systems reviewed; all pertinent +/- noted in HPI/Subj - Medication Medications: Active Medications Generic Name Dose Route Start Last Admin Trade Name Freq PRN Reason Stop Dose Admin Acetaminophen 650 mg 03/29/19 12:26 04/03/19 05:40 Tylenol PO 650 mg Q4H PRN Administration Headache/Fever/Mild Pain (1-3) Al Hydroxide/Mg Hydroxide 30 ml 03/31/19 22:52 03/31/19 22:57 Maalox PO 30 ml Q4H PRN Administration Heartburn or Indigestion Albuterol/Ipratropium 3 ml 03/31/19 13:00 04/06/19 06:36 Duoneb NEB 3 ml [id number] GORGE Administration Ferrous Sulfate 325 mg 04/01/19 08:00 04/06/19 08:45 Feosol PO 325 mg QAM-WM GORGE Administration Furosemide 40 mg 04/05/19 09:00 04/06/19 08:44 Lasix PO 40 mg 0900,1400 GORGE Administration Gabapentin 300 mg 03/29/19 15:00 04/06/19 08:44 Neurontin PO 300 mg TID GORGE Administration Insulin Glargine 50 units/ 0.5 mls @ 0 mls/hr 03/29/19 21:00 04/06/19 08:45 Miscellaneous Medication SC 0.5 mls BID GORGE Administration Insulin Human Lispro 0 units 03/29/19 16:54 04/03/19 17:36 Humalog SC 2 unit .MODERATE SLIDING SC PRN Administration Moderate Correctional Scale Insulin Human Lispro 0 units 03/29/19 16:54 04/02/19 21:49 Humalog SC 2 unit .BEDTIME SLIDING SC PRN Administration Bedtime Correctional Scale Lactulose 15 gm 04/05/19 21:00 04/06/19 08:42 Lactulose PO 15 gm QID GORGE Administration Lisinopril 10 mg 03/30/19 09:00 04/06/19 08:44 Zestril PO 10 mg DAILY GORGE Administration Lorazepam 1 mg 04/01/19 13:58 04/06/19 08:43 Ativan PO 1 mg TID PRN Administration Anxiety Metolazone 5 mg 04/03/19 08:30 04/06/19 08:44 Zaroxolyn PO 5 mg 0830 GORGE Administration Mirtazapine 15 mg 03/31/19 21:00 04/05/19 21:06 Remeron PO 15 mg HS GORGE Administration Mometasone Furoate/Formoterol Fumar 2 puff 03/31/19 18:30 04/06/19 06:34 Dulera 200 Mcg/5 Mcg Inhaler INH 2 puff BID-RT GORGE Administration Nadolol 40 mg 03/30/19 09:00 04/06/19 08:44 Corgard PO 40 mg DAILY GORGE Administration Ondansetron HCl 4 mg 03/29/19 12:26 04/02/19 08:54 Zofran Odt PO 4 mg Q6H PRN Administration Nausea/Vomiting Pantoprazole Sodium 40 mg 04/01/19 09:00 04/06/19 08:45 Protonix IVP 40 mg BID GORGE Administration Rifaximin 550 mg 03/29/19 21:00 04/06/19 08:44 Xifaxan PO 550 mg BID GORGE Administration Sodium Chloride 10 ml 03/29/19 21:00 04/06/19 08:49 Flush - Normal Saline IVF 10 ml Q12HR GORGE Administration Spironolactone 100 mg 04/03/19 08:00 04/06/19 08:45 Aldactone PO 100 mg QAM-WM GORGE Administration - Exam General Appearance: NAD, awake alert Eye: PERRL ENT: normocephalic atraumatic, moist mucosa Neck: supple, symmetric, no thyromegaly, no lymphadenopathy Heart: RRR, no murmur, no gallops, no rubs Respiratory: CTAB, no wheezes, no rales, no tachypnea Gastrointestinal: soft, non-tender, non-distended, no rigidity Extremities: 1+ LE edema Skin: no lesions, no rashes Neurological: cranial nerve grossly intact, no focal deficits Musculoskeletal: generalized weakness Psychiatric: oriented to person, oriented to place, flat affect Hosp A/P (1) Acute respiratory failure with hypoxemia Code(s): J96.01 - ACUTE RESPIRATORY FAILURE WITH HYPOXIA Status: Acute (2) 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) Code(s): K74.69 - OTHER CIRRHOSIS OF LIVER; B19.20 - UNSPECIFIED VIRAL HEPATITIS C WITHOUT HEPATIC COMA Status: Chronic (3) DM type 2 (diabetes mellitus, type 2) Status: Chronic Qualifiers: Diabetes mellitus care home insulin use: with long wall mining machine tender use Diabetes mellitus complication status: without complication Qualified Code(s): E11.9 - Type 2 diabetes mellitus without complications; Z79.4 - termite control technician (current) use of insulin (4) Pleural effusion, right Code(s): J90 - PLEURAL EFFUSION, NOT ELSEWHERE CLASSIFIED Status: Resolved (5) Thrombocytopenia Code(s): D69.6 - THROMBOCYTOPENIA, UNSPECIFIED Status: Chronic (6) Encephalopathy acute Code(s): G93.40 - ENCEPHALOPATHY, UNSPECIFIED Status: Acute (7) Hypertension Code(s): I10 - ESSENTIAL (PRIMARY) HYPERTENSION Status: Chronic (8) Liver cirrhosis Code(s): K74.60 - UNSPECIFIED CIRRHOSIS OF LIVER Status: Chronic - Plan Plan: medical unit gastroenterology consultation, recommendations appreciated Hepatic encephalopathy with elevated ammonia of 108 on 04/05 - Improved with increased dose of lactulose Increase Lactulose, titrate to loose BM On Rifaximine diuretic therapy to help further prevent hydrothorax status post thoracentesis times two 4.5 L of fluid removed from the pleural space fluid restrictions salt restrictions continue other home medications as able blood pressure control DVT prophylaxis MRI abdomen does not demonstrate vein thrombosis and no oral and coagulation is required ultrasound of the abdomen was concerning for partial portal vein thrombosis, however MRI refutes this disposition: planning for correction facility placement for continuation of physical therapy and occupational therapy and inpatient setting.
--- NOTE | 2019-04-06 14:23 | PRG ---
DATE OF SERVICE: 04/06/2019 SUBJECTIVE: Ms. Miller is resting comfortably in bed. She is getting a bath. She knows where she is. She knows her name. She is without complaints. MEDICATIONS: 1. Tylenol. 2. Maalox. 3. DuoNeb. 4. Iron 325 mg daily. 5. Lasix 40 mg b.i.d. 6. Gabapentin p.r.n. 7. Glucagon p.r.n. 8. Insulin sliding scale. 9. Lactulose 15 mL q.i.d. 10. Lisinopril 10 mg daily. 11. Ativan one t.i.d. p.r.n. 12. Metolazone 5 mg q.a.m. 13. Mirtazapine. 14. Remeron 15 mg at bedtime. 15. Nadolol 40 mg daily. 16. Protonix 40 mg daily. 17. Rifaximin 550 b.i.d. 18. Aldactone 100 mg daily. OBJECTIVE: VITAL SIGNS: Temperature is 98, pulse 74, and blood pressure 126/76. LUNGS: Notable for decreased breath sounds in the right lung completely. Regular lung sounds on the left. ABDOMEN: Nondistended. EXTREMITIES: No clubbing, cyanosis, or edema. LABORATORY DATA: No recent CBC. Today, the sodium is 139, potassium 3.6, and BUN and creatinine are 21 and 0.74. ASSESSMENT AND PLAN: 1. Cirrhosis, prior history of hepatitis C. 2. Decompensated features of cirrhosis including encephalopathy and history of varices, not active at this point in time. 3. Hepatic encephalopathy. She has definitely got effect of this. 4. 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 It is very important, no one ever puts a chest tube in this patient nor a pleural-based catheter because it will never come out and it will result in her developing renal failure from massive losses of fluid. 5. I will go and stop the p.r.n. Ativan that is going to make her encephalopathy worse. I would rethink the mirtazapine, although it seems that she is on this in the outpatient setting as this could make her encephalopathy worse. We will continue high-dose diuretics, low-sodium diet, and weigh patient daily and watch renal function. 6. It is my understanding that she is awaiting placement in a skilled facility if that is reasonable. Job ID: [id number]
[2019-04-06] MEDS: Mirtazapine 15 MG TAB PO SCH (20:17)
[2019-04-07] MEDS: Mometasone/Formoterol 120 PUFF INHALER INH SCH ×2 (06:49→18:16)
[2019-04-07 07:00] LABS: Anion Gap 8 mmol/L (10-20); BUN (Urea Nitrogen) 24 mg/dL (9.8-20.1); Calc. Creatinine Clearance 87 mL/min (70-130); Calcium 8.6 mg/dL (7.8-10.44); Carbon Dioxide 37 mmol/L (23-31); Chloride 97 mmol/L (98-107); Estimated GFR-MDRD 60; Glucose 121 mg/dL (80-115); Potassium 3.5 mmol/L (3.5-5.1); Sodium 138 mmol/L (136-145)
[2019-04-07] MEDS: Ferrous Sulfate 325 MG TAB PO SCH (08:47)
[2019-04-07] MEDS: Insulin Glargine 50 UNITS in Pre-Filled Syringe 1 EACH SC SCH ×2 (08:48→21:02)
[2019-04-07] MEDS: Gabapentin 300 MG CAP PO SCH ×4 (08:48→22:00)
[2019-04-07] MEDS: Spironolactone 100 MG TAB PO SCH (08:48)
[2019-04-07] MEDS: Metolazone 5 MG TAB PO SCH (08:48)
[2019-04-07] MEDS: Furosemide 40 MG TAB PO SCH ×2 (08:48→14:08)
[2019-04-07] MEDS: Rifaximin 550 MG TAB PO SCH ×3 (08:49→22:00)
[2019-04-07] MEDS: Pantoprazole 40 MG VIAL IVP SCH ×2 (08:49→21:02)
[2019-04-07] MEDS: Lisinopril 10 MG TAB PO SCH (08:49)
[2019-04-07] MEDS: Nadolol 40 MG TAB PO SCH (08:50)
--- NOTE | 2019-04-07 10:47 | PDOC.HOSPP ---
- Subjective Subjective: Seen and examined. Patient is back to her baseline level of mental status, hepatic encephalopathy with elevated ammonia has responded to increase doses of lactulose. Laughing and joking, in a good mood today. Patient doing well with meals. Patient tolerating fluid restrictions. Patient with escalating CO2 consistent with contraction alkalosis from diuresis, will stop Metolazone at this time. - Objective Vital Signs & Weight: Vital Signs (12 hours) Temp Pulse Resp BP BP Pulse Ox 04/07/19 08:49 113/49 L 04/07/19 07:50 97.8 F 68 18 113/49 L 94 L 04/07/19 06:53 94 L 04/07/19 06:52 61 16 94 L 04/07/19 06:49 61 16 94 L 04/07/19 00:10 68 12 94 L Weight Weight 215 lb 6.266 oz Most Recent Monitor Data Heart Rate from ECG 90 NIBP 154/71 NIBP BP-Mean 98 Respiration from ECG 21 SpO2 100 I&O: 04/06/19 04/07/19 04/08/19 06:59 06:59 06:59 Intake Total 960 810 Balance 960 810 Result Diagrams: 04/03/19 06:57 04/07/19 06:22 Additional Labs: Accuchecks 04/07/19 04/06/19 04/06/19 04:53 20:16 16:54 POC Glucose 121 H 150 H 157 H 04/06/19 11:26 POC Glucose 158 H Radiology Reviewed by me: Yes Hospitalist ROS - Review of Systems All other systems reviewed; all pertinent +/- noted in HPI/Subj - Medication Medications: Active Medications Generic Name Dose Route Start Last Admin Trade Name Freq PRN Reason Stop Dose Admin Acetaminophen 650 mg 03/29/19 12:26 04/03/19 05:40 Tylenol PO 650 mg Q4H PRN Administration Headache/Fever/Mild Pain (1-3) Al Hydroxide/Mg Hydroxide 30 ml 03/31/19 22:52 03/31/19 22:57 Maalox PO 30 ml Q4H PRN Administration Heartburn or Indigestion Albuterol/Ipratropium 3 ml 03/31/19 13:00 04/07/19 06:52 Duoneb NEB 3 ml [id number] GORGE Administration Ferrous Sulfate 325 mg 04/01/19 08:00 04/07/19 08:47 Feosol PO 325 mg QAM-WM GORGE Administration Furosemide 40 mg 04/05/19 09:00 04/07/19 08:48 Lasix PO 40 mg 0900,1400 GORGE Administration Gabapentin 300 mg 03/29/19 15:00 04/07/19 08:48 Neurontin PO 300 mg TID GORGE Administration Insulin Glargine 50 units/ 0.5 mls @ 0 mls/hr 03/29/19 21:00 04/07/19 08:48 Miscellaneous Medication SC 0.5 mls BID GORGE Administration Insulin Human Lispro 0 units 03/29/19 16:54 04/03/19 17:36 Humalog SC 2 unit .MODERATE SLIDING SC PRN Administration Moderate Correctional Scale Insulin Human Lispro 0 units 03/29/19 16:54 04/02/19 21:49 Humalog SC 2 unit .BEDTIME SLIDING SC PRN Administration Bedtime Correctional Scale Lactulose 15 gm 04/05/19 21:00 04/07/19 08:49 Lactulose PO 15 gm QID GORGE Administration Lisinopril 10 mg 03/30/19 09:00 04/07/19 08:49 Zestril PO 10 mg DAILY GORGE Administration Mirtazapine 15 mg 03/31/19 21:00 04/06/19 20:17 Remeron PO 15 mg HS GORGE Administration Mometasone Furoate/Formoterol Fumar 2 puff 03/31/19 18:30 04/07/19 06:49 Dulera 200 Mcg/5 Mcg Inhaler INH 2 puff BID-RT GORGE Administration Nadolol 40 mg 03/30/19 09:00 04/07/19 08:50 Corgard PO 40 mg DAILY GORGE Administration Ondansetron HCl 4 mg 03/29/19 12:26 04/02/19 08:54 Zofran Odt PO 4 mg Q6H PRN Administration Nausea/Vomiting Pantoprazole Sodium 40 mg 04/01/19 09:00 04/07/19 08:49 Protonix IVP 40 mg BID GORGE Administration Rifaximin 550 mg 03/29/19 21:00 04/07/19 08:49 Xifaxan PO 550 mg BID GORGE Administration Sodium Chloride 10 ml 03/29/19 21:00 04/07/19 08:50 Flush - Normal Saline IVF 10 ml Q12HR GORGE Administration Spironolactone 100 mg 04/03/19 08:00 04/07/19 08:48 Aldactone PO 100 mg QAM-WM GORGE Administration - Exam General Appearance: NAD, awake alert Eye: PERRL ENT: normocephalic atraumatic, moist mucosa Neck: supple, symmetric, no lymphadenopathy Heart: RRR, no murmur, no gallops, no rubs Respiratory: CTAB, no wheezes, no rales, no ronchi Respiratory - other findings: Slight deminished breath sounds lower lung renner Gastrointestinal: soft, non-tender, no guarding, no rigidity Extremities: 1+ LE edema Skin: no lesions, no rashes Neurological: cranial nerve grossly intact, normal sensation to touch, no focal deficits Musculoskeletal: generalized weakness Psychiatric: normal affect, normal behavior, oriented to person, oriented to place Hosp A/P (1) Acute respiratory failure with hypoxemia Code(s): J96.01 - ACUTE RESPIRATORY FAILURE WITH HYPOXIA Status: Acute (2) 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) Code(s): K74.69 - OTHER CIRRHOSIS OF LIVER; B19.20 - UNSPECIFIED VIRAL HEPATITIS C WITHOUT HEPATIC COMA Status: Chronic (3) DM type 2 (diabetes mellitus, type 2) Status: Chronic Qualifiers: Diabetes mellitus snf insulin use: with snf use Diabetes mellitus complication status: without complication Qualified Code(s): E11.9 - Type 2 diabetes mellitus without complications; Z79.4 - meterman (current) use of insulin (4) Pleural effusion, right Code(s): J90 - PLEURAL EFFUSION, NOT ELSEWHERE CLASSIFIED Status: Resolved (5) Thrombocytopenia Code(s): D69.6 - THROMBOCYTOPENIA, UNSPECIFIED Status: Chronic (6) Encephalopathy acute Code(s): G93.40 - ENCEPHALOPATHY, UNSPECIFIED Status: Acute (7) Hypertension Code(s): I10 - ESSENTIAL (PRIMARY) HYPERTENSION Status: Chronic (8) Liver cirrhosis Code(s): K74.60 - UNSPECIFIED CIRRHOSIS OF LIVER Status: Chronic - Plan Plan: medical unit gastroenterology consultation, recommendations appreciated Contraction alkalosis, decrease diuretic therapy Hepatic encephalopathy with elevated ammonia of 108 on 04/05 - Improved with increased dose of lactulose Increase Lactulose, titrate to loose BM On Rifaximine diuretic therapy to help further prevent hydrothorax status post thoracentesis times two 4.5 L of fluid removed from the pleural space fluid restrictions salt restrictions continue other home medications as able blood pressure control DVT prophylaxis MRI abdomen does not demonstrate vein thrombosis and no oral and coagulation is required ultrasound of the abdomen was concerning for partial portal vein thrombosis, however MRI refutes this disposition: planning for correction facility placement for continuation of physical therapy and occupational therapy and inpatient setting.
[2019-04-07] MEDS: HumaLOG 300 UNITS/3 ML VIAL SC PRN ×2 (12:44→17:06)
--- NOTE | 2019-04-07 12:44 | PRG ---
DATE OF SERVICE: 04/07/2019 SUBJECTIVE: Ms. Miller is more alert today, more awake. She is eating. Family is at bedside. OBJECTIVE: VITAL SIGNS: Temperature is 97, pulse 68, blood pressure 113/49. She is breathing comfortably. ABDOMEN: Soft and nontender. There is no shifting dullness or fluid wave. EXTREMITIES: No clubbing, cyanosis, or edema. LABORATORY DATA: Sodium today is 138, potassium 3.5, BUN and creatinine are 24 and 0.9, glucose 121. Weight is not recorded yet for the day. ASSESSMENT: 1. Hepatic hydrothorax. Respiratory status stable. 2. Increasing BUN and creatinine slowly. I agree with holding metolazone. 3. Encephalopathy, improved. 4. Thrombocytopenia, stable. 5. Continue to monitor weight and renal function. Job ID: [id number]
[2019-04-07] MEDS: Acetaminophen 325 MG TAB PO PRN (18:16)
[2019-04-07] MEDS: Mirtazapine 15 MG TAB PO SCH ×2 (21:03→22:20)
[2019-04-08 02:29] LABS: #Eosinphils 0.1 thou/uL (0.0-0.7); #Lymphocytes 1.7 thou/uL (1.20-3.40); #Monocytes 0.6 thou/uL (0.11-0.59); %Basophils 0.1 % (0.0-1.0); %Eosinophils 1.4 % (0.0-10.0); %Lymphocytes 26.8 % (21.0-51.0); %Monocytes 8.9 % (0.0-10.0); %Neutrophils 62.7 % (42.0-75.0); Hemoglobin 11.9 g/dL (12.0-16.0); Mean Corpuscular HGB CONC 32.9 g/dL (32.0-36.0); Mean Corpuscular Hemoglobin 28.7 pg (27.0-31.0); Mean Corpuscular Volume 87.3 fL (78.0-98.0); Mean Platelet Volume 11.2 fL (7.4-10.4); Platelet Count 63 thou/uL (130-400); RBC Distribution Width 14.8 % (11.5-14.5); Red Blood Cell (RBC) Count 4.13 mill/uL (4.20-5.40); White Blood Cell (WBC) Count 6.4 thou/uL (4.8-10.8)
[2019-04-08 02:36] LABS: ALT (SGPT) 26 U/L (8-55); AST (SGOT) 47 U/L (5-34); Albumin 2.3 g/dL (3.4-4.8); Alkaline Phosphatase 99 U/L (40-110); Anion Gap 9 mmol/L (10-20); BUN (Urea Nitrogen) 29 mg/dL (9.8-20.1); Bilirubin, Total 1.2 mg/dL (0.2-1.2); Calc. Creatinine Clearance 65 mL/min (70-130); Carbon Dioxide 35 mmol/L (23-31); Chloride 96 mmol/L (98-107); Estimated GFR-MDRD 44; Globulin 3.7 g/dL (2.4-3.5); Glucose 144 mg/dL (80-115); Potassium 3.4 mmol/L (3.5-5.1); Sodium 137 mmol/L (136-145)
[2019-04-08 02:41] LABS: Anion Gap 11 mmol/L (10-20); BUN (Urea Nitrogen) 29 mg/dL (9.8-20.1); Calc. Creatinine Clearance 65 mL/min (70-130); Calcium 8.8 mg/dL (7.8-10.44); Carbon Dioxide 33 mmol/L (23-31); Chloride 96 mmol/L (98-107); Estimated GFR-MDRD 44; Glucose 145 mg/dL (80-115); Potassium 3.4 mmol/L (3.5-5.1); Sodium 137 mmol/L (136-145)
[2019-04-08] MEDS ORDERED: Potassium Chloride 20 MEQ TAB PO SCH (03:00)
--- NOTE | 2019-04-08 03:01 | PDOC.EVN ---
Event Note - Event Note Event Note: Nurse called to state patient is very drowsy, history of hepatic encephalopathy , ordered labs and ammonia level. Discussed case with Dr. Jenkins after labs resulted, lactulose 30gm [place] QID requested and KCL 40meq also ordered per request.
[2019-04-08] MEDS: Mometasone/Formoterol 120 PUFF INHALER INH SCH ×2 (06:50→18:43)
[2019-04-08] MEDS: Ferrous Sulfate 325 MG TAB PO SCH (08:06)
[2019-04-08] MEDS: Nadolol 40 MG TAB PO SCH (08:06)
[2019-04-08] MEDS: Pantoprazole 40 MG VIAL IVP SCH ×2 (08:06→22:57)
[2019-04-08] MEDS: Lisinopril 10 MG TAB PO SCH (08:06)
[2019-04-08] MEDS: Furosemide 40 MG TAB PO SCH (08:06)
[2019-04-08] MEDS: Gabapentin 300 MG CAP PO SCH ×3 (08:06→22:09)
[2019-04-08] MEDS: Rifaximin 550 MG TAB PO SCH ×2 (08:06→22:57)
[2019-04-08] MEDS: Insulin Glargine 50 UNITS in Pre-Filled Syringe 1 EACH SC SCH ×2 (08:21→22:11)
[2019-04-08] MEDS: Spironolactone 100 MG TAB PO SCH (08:21)
--- NOTE | 2019-04-08 10:40 | PDOC.HOSPP ---
- Subjective Subjective: Seen and examined. Patient with hepatic encephalopathy today and in the night. Very somnolent. Discuss case with nursing staff who was taking care the patient yesterday. Patient did have to loose bowel movement yesterday. Since yesterday afternoon the patient has not moved rebels. Rectal lactulose ordered. Oral lactulose increased. - Objective Vital Signs & Weight: Vital Signs (12 hours) Temp Pulse Resp BP BP BP Pulse Ox 04/08/19 08:06 119/74 04/08/19 08:00 96 04/08/19 06:51 94 L 04/08/19 06:50 62 16 94 L 04/08/19 03:50 97.7 F 62 19 96/55 L 95 04/08/19 01:36 97.9 F 63 19 114/72 96 04/07/19 23:38 71 16 98 Weight Weight 207 lb 1.6 oz Most Recent Monitor Data Heart Rate from ECG 90 NIBP 154/71 NIBP BP-Mean 98 Respiration from ECG 21 SpO2 100 I&O: 04/07/19 04/08/19 04/09/19 06:59 06:59 06:59 Intake Total 810 840 Balance 810 840 Result Diagrams: 04/08/19 02:03 04/08/19 02:03 Additional Labs: Accuchecks 04/08/19 04/08/19 04/07/19 03:48 01:26 20:05 POC Glucose 159 H 139 H 187 H 04/07/19 04/07/19 16:05 12:10 POC Glucose 212 H 246 H Radiology Reviewed by me: Yes Hospitalist ROS - Review of Systems All other systems reviewed; all pertinent +/- noted in HPI/Subj - Medication Medications: Active Medications Generic Name Dose Route Start Last Admin Trade Name Freq PRN Reason Stop Dose Admin Acetaminophen 650 mg 03/29/19 12:26 04/07/19 18:16 Tylenol PO 650 mg Q4H PRN Administration Headache/Fever/Mild Pain (1-3) Al Hydroxide/Mg Hydroxide 30 ml 03/31/19 22:52 03/31/19 22:57 Maalox PO 30 ml Q4H PRN Administration Heartburn or Indigestion Albuterol/Ipratropium 3 ml 03/31/19 13:00 04/08/19 06:50 Duoneb NEB 3 ml [id number] GORGE Administration Ferrous Sulfate 325 mg 04/01/19 08:00 04/08/19 08:06 Feosol PO Not Given QAM-WM [facility] Furosemide 40 mg 04/05/19 09:00 04/08/19 08:06 Lasix PO Not Given 0900,1400 [facility] Gabapentin 300 mg 03/29/19 15:00 04/08/19 08:06 Neurontin PO Not Given TID [facility] Insulin Glargine 50 units/ 0.5 mls @ 0 mls/hr 03/29/19 21:00 04/08/19 08:21 Miscellaneous Medication SC Not Given BID [facility] Insulin Human Lispro 0 units 03/29/19 16:54 04/07/19 17:06 Humalog SC 4 unit .MODERATE SLIDING SC PRN Administration Moderate Correctional Scale Insulin Human Lispro 0 units 03/29/19 16:54 04/02/19 21:49 Humalog SC 2 unit .BEDTIME SLIDING SC PRN Administration Bedtime Correctional Scale Lactulose 30 gm 04/08/19 09:00 04/08/19 08:07 Lactulose NM 30 gm QID [facility] Administration Lactulose 20 gm 04/08/19 09:00 04/08/19 10:23 Lactulose PO Not Given QID [facility] Lisinopril 10 mg 03/30/19 09:00 04/08/19 08:06 Zestril PO Not Given DAILY [facility] Mirtazapine 15 mg 03/31/19 21:00 04/07/19 22:20 Remeron PO 15 mg HS [facility] Administration Mometasone Furoate/Formoterol Fumar 2 puff 03/31/19 18:30 04/08/19 06:50 Dulera 200 Mcg/5 Mcg Inhaler INH 2 puff BID-RT [facility] Administration Nadolol 40 mg 03/30/19 09:00 04/08/19 08:06 Corgard PO Not Given DAILY [facility] Ondansetron HCl 4 mg 03/29/19 12:26 04/02/19 08:54 Zofran Odt PO 4 mg Q6H PRN Administration Nausea/Vomiting Pantoprazole Sodium 40 mg 04/01/19 09:00 04/08/19 08:06 Protonix IVP Not Given BID [facility] Rifaximin 550 mg 03/29/19 21:00 04/08/19 08:06 Xifaxan PO Not Given BID GORGE Sodium Chloride 10 ml 03/29/19 21:00 04/08/19 08:21 Flush - Normal Saline IVF 10 ml Q12HR GORGE Administration Spironolactone 100 mg 04/03/19 08:00 04/08/19 08:21 Aldactone PO Not Given QAM-WM GORGE - Exam General Appearance: NAD, awake alert Eye: anicteric sclera ENT: normocephalic atraumatic, moist mucosa Neck: supple, symmetric, no lymphadenopathy Heart: no murmur, no gallops, no rubs Respiratory: CTAB, no wheezes, no rales, no ronchi Gastrointestinal: soft, non-tender, no guarding, no rigidity Extremities: 1+ LE edema Skin: no lesions, no rashes Neurological: cranial nerve grossly intact, no focal deficits Musculoskeletal: generalized weakness Psychiatric: oriented to person, somnolent Hosp A/P (1) Acute respiratory failure with hypoxemia Code(s): J96.01 - ACUTE RESPIRATORY FAILURE WITH HYPOXIA Status: Acute (2) 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) Code(s): K74.69 - OTHER CIRRHOSIS OF LIVER; B19.20 - UNSPECIFIED VIRAL HEPATITIS C WITHOUT HEPATIC COMA Status: Chronic (3) DM type 2 (diabetes mellitus, type 2) Status: Chronic Qualifiers: Diabetes mellitus fci insulin use: with termite control representative use Diabetes mellitus complication status: without complication Qualified Code(s): E11.9 - Type 2 diabetes mellitus without complications; Z79.4 - FCI (current) use of insulin (4) Pleural effusion, right Code(s): J90 - PLEURAL EFFUSION, NOT ELSEWHERE CLASSIFIED Status: Resolved (5) Thrombocytopenia Code(s): D69.6 - THROMBOCYTOPENIA, UNSPECIFIED Status: Chronic (6) Encephalopathy acute Code(s): G93.40 - ENCEPHALOPATHY, UNSPECIFIED Status: Acute (7) Hypertension Code(s): I10 - ESSENTIAL (PRIMARY) HYPERTENSION Status: Chronic (8) Liver cirrhosis Code(s): K74.60 - UNSPECIFIED CIRRHOSIS OF LIVER Status: Chronic - Plan Plan: medical unit gastroenterology consultation, recommendations appreciated Contraction alkalosis, decrease diuretic therapy Hepatic encephalopathy with elevated ammonia of 108 on 04/05 - Improved with increased dose of lactulose Increase Lactulose, titrate to loose BM Added rectal lacutulose - Will D/c once again moving bowels On Rifaximine Start Diamox to aid with contraction alkalosis with uptrending CO2 diuretic therapy to help further prevent hydrothorax status post thoracentesis times two 4.5 L of fluid removed from the pleural space fluid restrictions salt restrictions continue other home medications as able blood pressure control DVT prophylaxis MRI abdomen does not demonstrate vein thrombosis and no oral and coagulation is required per GI ultrasound of the abdomen was concerning for partial portal vein thrombosis, however MRI refutes this disposition: planning for [facility] facility placement for continuation of physical therapy and occupational therapy and inpatient setting.
[2019-04-08] MEDS: Dextrose 5 % And 0.9 % NaCl 1,000 ML IV SCH (13:11)
--- NOTE | 2019-04-08 13:22 | PRG ---
DATE OF SERVICE: 04/08/2019 SUBJECTIVE: Ms. Miller apparently became very encephalopathic last night. She has had two rectal enemas since that time. She is nonresponsive, breathing, but has not taken any meds or eaten today. Reviewing the chart, she has not received any sedatives. OBJECTIVE: VITAL SIGNS: She has had stable vital signs. Temperature is 97.7, pulse 60, blood pressure 93/58. GENERAL: On physical exam she responds to the sternal rub only. HEENT: Pupils are equal, round. LUNGS: Clear. ABDOMEN: Nontender. LABORATORY DATA: White count 6.4, hemoglobin 11.9, platelet count 63,000. Sodium 137, potassium 3.4, BUN and creatinine 29 and 1.2. This is up from 24 and 0.9 yesterday. Ammonia was 190 at 2 in the morning. AST 47, ALT 26, albumin 2.3, protein 6. ASSESSMENT: Worsening hepatic encephalopathy. Reviewing the records, I see no evidence that she received any sedatives or sleep aids. This apparently occurred shortly after dinnertime last night. It may be related to dehydration issues being diuresed pretty aggressively. RECOMMENDATIONS: 1. Place NG tube now. 2. Start lactulose q.1 hour until the patient starts waking up. 3. Restart IV fluids. 4. Hold diuretics. If the patient shows any signs of infection we will kent culture and start empiric antibiotics. This has been discussed with the nurse and charge nurse and the patient's family. Job ID: [id number]
--- NOTE | 2019-04-08 13:56 | RAD ---
SUPINE ABDOMEN: HISTORY: NG tube placement. FINDINGS/IMPRESSION: NG tube passes through the EG junction and the tip overlies the mid gastric fundus in the left upper abdomen. The visualized bowel gas pattern is unremarkable. POS: OFF
[2019-04-08] MEDS ORDERED: AcetaZOLAMIDE 250 MG TAB PO SCH (21:00)
[2019-04-08] MEDS: Mirtazapine 15 MG TAB PO SCH (22:11)
[2019-04-09] MEDS: Dextrose 5 % And 0.9 % NaCl 1,000 ML IV SCH ×2 (05:34→15:08)
[2019-04-09] MEDS: Mometasone/Formoterol 120 PUFF INHALER INH SCH ×2 (07:31→19:41)
[2019-04-09] MEDS: Gabapentin 300 MG CAP PO SCH ×3 (08:58→20:53)
[2019-04-09] MEDS: Nadolol 40 MG TAB PO SCH (08:58)
[2019-04-09] MEDS: Rifaximin 550 MG TAB PO SCH ×2 (08:58→20:53)
[2019-04-09 08:59] LABS: Anion Gap 11 mmol/L (10-20); BUN (Urea Nitrogen) 25 mg/dL (9.8-20.1); Calc. Creatinine Clearance 84 mL/min (70-130); Carbon Dioxide 28 mmol/L (23-31); Chloride 105 mmol/L (98-107); Estimated GFR-MDRD 59; Glucose 188 mg/dL (80-115); Potassium 3.9 mmol/L (3.5-5.1); Sodium 140 mmol/L (136-145)
[2019-04-09] MEDS: Ferrous Sulfate 325 MG TAB PO SCH (08:59)
[2019-04-09] MEDS: Lisinopril 10 MG TAB PO SCH (08:59)
[2019-04-09] MEDS: Insulin Glargine 50 UNITS in Pre-Filled Syringe 1 EACH SC SCH ×3 (09:01→23:37)
[2019-04-09] MEDS: Pantoprazole 40 MG VIAL IVP SCH ×2 (09:02→20:53)
[2019-04-09] MEDS: HumaLOG 300 UNITS/3 ML VIAL SC PRN ×2 (12:21→23:38)
[2019-04-09 12:38] LABS: Lactic Acid 3.4 mmol/L (0.5-2.2)
[2019-04-09 14:27] VITALS: BMI 37.9
--- NOTE | 2019-04-09 16:06 | PQF ---
CLINICAL DOCUMENTATION IMPROVEMENT CLARIFICATION FORM: ICD-10 Updated PLEASE DO AN ADDENDUM TO THE PROGRESS NOTE WITH ANY DOCUMENTATION UPDATES OR ADDITIONS AND CARRY THROUGH TO DC SUMMARY. THANK YOU. DATE: 04/09/2019 ATTN: Dr. Claros Please exercise your independent, professional judgment in responding to the clarification form. Clinical indicators are provided on the bottom of this form for your review Please check appropriate box(s): [ ] Encephalopathy: Type: [ ] Acute [ ] Subacute [ ] Chronic Etiology: [ ] Hepatic with Coma [ ] Hepatic w/o Coma [ ] Unspecified [ ] Other (please specify) [ ] Other diagnosis [ ] Unable to determine In addition, please specify: Present on Admission (POA): [ ] Yes [ ] No [ ] Unable to determine For continuity of documentation, please document condition throughout progress notes and discharge summary. Thank You. CLINICAL INDICATORS - SIGNS / SYMPTOMS / LABS / RESULTS AND LOCATION IN EMR 04/05 (Richi): Hepatic encephalopathy with elevated ammonia of 108 on 04/05 04/06 (Richi) Hepatic encephalopathy with elevated ammonia of 108 on 04/05 - Improved with increased dose of lactulose 04/08 ( Jamila) Worsening hepatic encephalopathy. RISKS: 03/29 H&P: PMH pertinent for hepatitis C, treated; cirrhosis, hx of hepatic encephalopathy. TREATMENT: 04/05 pn (Richi) Increase Lactulose, titrate to loose BM 04/08 pn (Richi) Added rectal lactulose Thank you, Erna (This form is maintained as a part of the permanent medical record) 2014 [employer]. All Rights Reserved Erna Barkley RN, BSN [email or web address] Office: [phone] [facility] SYSTEM[facility]
--- NOTE | 2019-04-09 16:32 | PRG ---
DATE OF SERVICE: 04/09/2019 SUBJECTIVE: The patient experienced increased altered mental status yesterday, exhibiting behavior that was only responsive to noxious stimuli. Subsequently, she was given lactulose via an NG tube and rectal enemas and showed a significant improvement in her status. Today, she states that she is feeling better, although she is only oriented to self and place at the current time. She states that she had not had a bowel movement today, but per review of the patient's chart, she did have 2 large bowel movements yesterday evening with the administration of the lactulose. Otherwise, she denies any nausea, vomiting, fevers, chills, belly pain, hematemesis, melena, or hematochezia. OBJECTIVE: VITAL SIGNS: Temperature 98.4, pulse 74, blood pressure 115/66, respiratory rate 16, and saturating 97% on room air. GENERAL: The patient was lying in bed, in no acute distress. Alert and oriented x2. RESPIRATORY: Diminished breath sounds auscultated in the bilateral lower lung renner with the right greater than left. Otherwise, no wheezing or rales. CARDIOVASCULAR: Regular rate and rhythm with no discernable murmurs, gallops, or rubs. ABDOMEN: Normoactive bowel sounds. Soft, nontender, and nondistended. EXTREMITIES: No cyanosis, clubbing, or edema. LABORATORY DATA: Chemistry with a sodium of 140, potassium 3.9 chloride 105, CO2 of 28, BUN 25, creatinine 0.94, and glucose 188. IMAGING DATA: Abdominal x-ray obtained on 04/08/2019, showed adequate positioning of the NG tube with the tip overlying the midgastric fundus and the left upper abdomen. ASSESSMENT AND PLAN: The patient is a 69-year-old female with past medical history of cirrhosis, complicated by hepatic encephalopathy and hepatic hydrothorax. Hepatic hydrothorax. The patient was presenting with increased shortness of breath with imaging on admission showing the presence of a pleural effusion in the right lower pulmonary lobe, consistent with hepatic hydrothorax. She was subsequently placed on aggressive diuretic management and had been improving, but did have an elevation in both her BUN and creatinine, consistent with probable prerenal azotemia. Her diuretics were subsequently discontinued and she was given IV fluids over the weekends with improvement of both the BUN and creatinine at the current time. Recommendations: 1. We would continue to hold her diuretic management given her slowly downtrending BUN and increased risk of prerenal azotemia. 2. We would liberalize the patient's free water intake. 3. We would continue a low-sodium diet (less than 2000 mg from any source). Hepatic encephalopathy. The patient is presenting with a history of cirrhosis, complicated by hepatic encephalopathy, it has worsened during this admission with an elevated ammonia yesterday at 190. This is most likely precipitated by the increased use of diuretics, resulting in prerenal azotemia. At the current time , she has been receiving both oral and rectal lactulose administration with a significant improvement of her mental status when compared to previous. Given the removal of her nasogastric tube and her ability to tolerate oral intake, I would proceed with this route. Recommendations: 1. We would continue lactulose by mouth 20 g 4 times daily to achieve goal number of bowel movements of approximately 3-4 per day. 2. If the patient is not having 3 to 4 bowel movements per day, we would increase her lactulose accordingly. 3. We would continue rifaximin 550 mg twice daily. We will continue to follow. Please call with any questions. Job ID: [id number] CAIN
[2019-04-09] MEDS: Mirtazapine 15 MG TAB PO SCH (20:53)
--- NOTE | 2019-04-09 22:34 | PDOC.HOSPP ---
- Subjective Encounter Date: 04/09/19 Encounter Time: 14:00 Subjective: Patient seen and examined for Encephalopathy. Mentation improving. No CP. No new complaints. No overnight events - Objective Vital Signs & Weight: Vital Signs (12 hours) Temp Pulse Resp BP BP Pulse Ox 04/09/19 20:00 98.2 F 86 18 131/82 97 04/09/19 19:41 74 20 04/09/19 19:40 74 16 96 04/09/19 16:20 98 F 74 16 152/73 H 97 04/09/19 12:10 98.4 F 74 16 115/66 97 Weight Admit Weight 215 lb 6.266 oz Weight 207 lb 6.4 oz Most Recent Monitor Data Heart Rate from ECG 90 NIBP 154/71 NIBP BP-Mean 98 Respiration from ECG 21 SpO2 100 I&O: 04/08/19 04/09/19 04/10/19 06:59 06:59 06:59 Intake Total 689 935 6872 Balance 589 259 5659 Result Diagrams: 04/08/19 02:03 04/10/19 03:40 Additional Labs: Accuchecks 04/09/19 04/09/19 04/09/19 21:12 16:49 12:11 POC Glucose 228 H 141 H 259 H 04/09/19 04:33 POC Glucose 181 H Hospitalist ROS - Review of Systems Constitutional: denies: fever, chills, sweats, weakness, malaise, other Genitourinary: denies: dysuria, frequency, incontinence, hematuria, retention, other - Medication Medications: Active Medications Generic Name Dose Route Start Last Admin Trade Name Alpeshq PRN Reason Stop Dose Admin Acetaminophen 650 mg 03/29/19 12:26 04/07/19 18:16 Tylenol PO 650 mg Q4H PRN Administration Headache/Fever/Mild Pain (1-3) Al Hydroxide/Mg Hydroxide 30 ml 03/31/19 22:52 03/31/19 22:57 Maalox PO 30 ml Q4H PRN Administration Heartburn or Indigestion Albuterol/Ipratropium 3 ml 03/31/19 13:00 04/09/19 19:40 Duoneb NEB 3 ml [id number] GORGE Administration Ferrous Sulfate 325 mg 04/01/19 08:00 04/09/19 08:59 Feosol PO 325 mg QAM-WM GORGE Administration Gabapentin 300 mg 03/29/19 15:00 04/09/19 20:53 Neurontin PO 300 mg TID GORGE Administration Insulin Glargine 50 units/ 0.5 mls @ 0 mls/hr 03/29/19 21:00 04/09/19 12:21 Miscellaneous Medication SC 0.5 mls BID GORGE Administration Dextrose/Sodium Chloride 1,000 mls @ 75 mls/hr 04/08/19 13:00 04/09/19 15:08 D5 0.9% Ns IV 1,000 mls .[id number] GORGE Administration Insulin Human Lispro 0 units 03/29/19 16:54 04/09/19 12:21 Humalog SC 6 unit .MODERATE SLIDING SC PRN Administration Moderate Correctional Scale Insulin Human Lispro 0 units 03/29/19 16:54 04/02/19 21:49 Humalog SC 2 unit .BEDTIME SLIDING SC PRN Administration Bedtime Correctional Scale Lactulose 20 gm 04/08/19 09:00 04/09/19 20:53 Lactulose PO 20 gm QID GORGE Administration Lisinopril 10 mg 03/30/19 09:00 04/09/19 08:59 Zestril PO 10 mg DAILY GORGE Administration Mirtazapine 15 mg 03/31/19 21:00 04/09/19 20:53 Remeron PO 15 mg HS GORGE Administration Mometasone Furoate/Formoterol Fumar 2 puff 03/31/19 18:30 04/09/19 19:41 Dulera 200 Mcg/5 Mcg Inhaler INH 2 puff BID-RT GORGE Administration Nadolol 40 mg 03/30/19 09:00 04/09/19 08:58 Corgard PO 40 mg DAILY GORGE Administration Ondansetron HCl 4 mg 03/29/19 12:26 04/02/19 08:54 Zofran Odt PO 4 mg Q6H PRN Administration Nausea/Vomiting Pantoprazole Sodium 40 mg 04/01/19 09:00 04/09/19 20:53 Protonix IVP 40 mg BID GORGE Administration Rifaximin 550 mg 03/29/19 21:00 04/09/19 20:53 Xifaxan PO 550 mg BID GORGE Administration Sodium Chloride 10 ml 03/29/19 21:00 04/09/19 20:53 Flush - Normal Saline IVF 10 ml Q12HR GORGE Administration - Exam General Appearance: NAD Heart: RRR, no gallops Respiratory: no rales, rhonchi Gastrointestinal: soft, normal bowel sounds Extremities: no cyanosis Neurological: no new deficit Psychiatric: normal affect, A&O x 3 (with intermittent confusion) Hosp A/P - Plan DVT proph w/SCDs Acute hypoxic resp failure s/p NIPPV (POA) Toxic Metabolic Encephalopathy due to Hepatic Encephalopathy (POA) Hepatic Hydrothorax (POA) s/p thoracentesis Obesity BMI 37.9 DM2 HTN Other issues per previous notes PLAN: Cont Lactulose QID Cont Rifaximin PT/OT DC IVF later today or in AM if tolerating PO well Cont other meds Change PPI to PO
[2019-04-10 04:08] LABS: Lactic Acid 2.4 mmol/L (0.5-2.2); Phosphorus 2.7 mg/dL (2.3-4.7)
[2019-04-10 04:11] LABS: Anion Gap 10 mmol/L (10-20); BUN (Urea Nitrogen) 16 mg/dL (9.8-20.1); Calc. Creatinine Clearance 93 mL/min (70-130); Calcium 8.4 mg/dL (7.8-10.44); Carbon Dioxide 24 mmol/L (23-31); Chloride 107 mmol/L (98-107); Estimated GFR-MDRD 67; Glucose 159 mg/dL (80-115); Magnesium 1.5 mg/dL (1.6-2.6); Potassium 3.2 mmol/L (3.5-5.1); Sodium 138 mmol/L (136-145)
[2019-04-10] MEDS: Dextrose 5 % And 0.9 % NaCl 1,000 ML IV SCH (06:26)
[2019-04-10] MEDS: Mometasone/Formoterol 120 PUFF INHALER INH SCH ×2 (06:56→19:11)
[2019-04-10] MEDS: Rifaximin 550 MG TAB PO SCH ×2 (09:00→21:04)
[2019-04-10] MEDS: Gabapentin 300 MG CAP PO SCH ×3 (09:00→21:03)
[2019-04-10] MEDS: Ferrous Sulfate 325 MG TAB PO SCH (09:00)
[2019-04-10] MEDS: Nadolol 40 MG TAB PO SCH (09:00)
[2019-04-10] MEDS: Lisinopril 10 MG TAB PO SCH (09:00)
[2019-04-10] MEDS: HumaLOG 300 UNITS/3 ML VIAL SC PRN ×2 (12:56→16:50)
--- NOTE | 2019-04-10 14:48 | PRG ---
DATE OF SERVICE: 04/10/2019 SUBJECTIVE: The patient did not have any acute events or problems overnight and per nursing staff has had approximately two smaller volume bowel movements today with the administration of lactulose 4 times daily. Per nursing staff, the patient's mental status has also improved, which was confirmed via my interview. She states that she is feeling better and is now oriented to self, place, but not to time/date. Currently, she denies any nausea, vomiting, fevers, chills, abdominal pain, hematemesis, melena, or hematochezia. OBJECTIVE: VITAL SIGNS: Temperature 97.8, pulse 72, blood pressure 137/85, respiratory rate 16, and saturating 98% on room air. GENERAL: The patient is lying in bed, in no acute distress. Alert and oriented x3. RESPIRATORY: Slightly diminished breath sounds auscultated in bilateral lower lung renner. CARDIOVASCULAR: Regular rate and rhythm. ABDOMEN: Normoactive bowel sounds. Soft, nontender, and nondistended. EXTREMITIES: No cyanosis, clubbing, or edema. LABORATORY DATA: Chemistry with a sodium of 138, potassium 3.2, chloride 107, CO2 of 24, BUN 16, creatinine 0.84, glucose 159, and magnesium 1.5. IMAGING DATA: No current GI imaging is available for review. ASSESSMENT AND PLAN: The patient is a 69-year-old female with past medical history of cirrhosis complicated by hepatic encephalopathy and hepatic hydrothorax. 1. Cirrhosis: The patient is presenting with a history of cirrhosis with most likely etiology being chronic hepatitis C infection. She subsequently underwent treatment in the late via an interferon regimen with SVR achieved. Currently presenting with decompensated disease (encephalopathy, esophageal varices in the past, ascites, and now hepatic hydrothorax). Currently with calculated MELD sodium score of 15 based on an INR drawn on March 30, 2019. She did have an MRI of the liver obtained during this admission, which did not show any evidence of portal vein thrombosis nor any parenchymal masses consistent with HCC. a. Recommendations: I. We would continue to monitor the patient's clinical condition and we would trend her INR ordered intermittently during the course of this admission to calculate her MELD score. II. If exhibiting an increase in her MELD score, we would then consider referral to [facility] for possible liver transplant as an outpatient. 2. Hepatic hydrothorax: The patient presented with increased shortness of breath and increased abdominal distention prior to admission with imaging showing the presence of a pleural effusion in the right lower lobe consistent with hepatic hydrothorax. She was subsequently placed on aggressive diuretic management and did have some clinical improvement, but then exhibited acute kidney injury as evidenced by increase in both BUN and creatinine, most likely due to prerenal azotemia from her diuretic management. Given the administration of IV fluids and discontinuation of her diuretics, her renal function has returned to normal. a. Recommendations: I. We would continue to hold her diuretic management for another 24 hours and if renal function is stable, we will consider restarting spironolactone at 50 mg daily. II. We would liberalize the patient's free water intake with no fluid restrictions. III. We would continue the patient on low-sodium diet (less than 2000 mg from any source) as this being the larger component for reaccumulation of ascites or hydrothorax. 3. Hepatic encephalopathy: The patient is presenting with a history of cirrhosis that has been complicated by hepatic encephalopathy and had been taking both lactulose and rifaximin as an outpatient. During the course of this hospitalization, she did have worsening of her encephalopathy most likely due to administration of diuretics and prerenal azotemia. With the administration of lactulose 30 mL 4 times daily, she has had improvement in her mental status, albeit slowly with having approximately 3 bowel movements over the last 24 hours. At this time, I would continue the lactulose and rifaximin with a goal of having approximately 3 to 4 bowel movements every day as part of treatment for her hepatic encephalopathy. a. Recommendations: I. We would continue lactulose at 20 g 4 times daily, but would increase the amount per dose if not achieving approximately 3 to 4 bowel movements per day. II. Continue rifaximin 550 mg twice daily. If the patient is exhibiting improvement of her mental status tomorrow and has been able to tolerate oral intake/medications, then could consider discharging the patient to [facility] for [facility] and follow up in the GI Clinic in 2 to 3 weeks. Job ID: [id number]
--- NOTE | 2019-04-10 16:21 | PDOC.HOSPP ---
- Subjective Encounter Date: 04/10/19 Encounter Time: 15:00 Subjective: Patient seen and examined for Encephalopathy. Mentation improving. No N/V/ fever. No new complaints. No overnight events - Objective Vital Signs & Weight: Vital Signs (12 hours) Temp Pulse Resp BP Pulse Ox 04/10/19 12:59 72 16 98 04/10/19 09:00 95 04/10/19 07:28 97.8 F 73 18 137/85 95 04/10/19 06:59 66 16 99 04/10/19 06:56 66 16 99 Weight Admit Weight 215 lb 6.266 oz Weight 213 lb 11.2 oz Most Recent Monitor Data Heart Rate from ECG 90 NIBP 154/71 NIBP BP-Mean 98 Respiration from ECG 21 SpO2 100 I&O: 04/09/19 04/10/19 04/11/19 06:59 06:59 06:59 Intake Total 400 3415 Balance 400 3415 Result Diagrams: 04/08/19 02:03 04/10/19 03:40 Additional Labs: Accuchecks 04/10/19 04/10/19 04/09/19 12:01 05:55 21:12 POC Glucose 201 H 116 H 228 H 04/09/19 16:49 POC Glucose 141 H Laboratory Tests 04/10/19 03:40 Magnesium 1.5 L Hospitalist ROS - Review of Systems Respiratory: denies: cough, dry, shortness of breath, hemoptysis, SOB with excertion, pleuritic pain, sputum, wheezing, other Cardiovascular: denies: chest pain, palpitations, orthopnea, paroxysmal noc. dyspnea, edema, light headedness, other - Medication Medications: Active Medications Generic Name Dose Route Start Last Admin Trade Name Freq PRN Reason Stop Dose Admin Acetaminophen 650 mg 03/29/19 12:26 04/07/19 18:16 Tylenol PO 650 mg Q4H PRN Administration Headache/Fever/Mild Pain (1-3) Al Hydroxide/Mg Hydroxide 30 ml 03/31/19 22:52 03/31/19 22:57 Maalox PO 30 ml Q4H PRN Administration Heartburn or Indigestion Albuterol/Ipratropium 3 ml 03/31/19 13:00 04/10/19 12:59 Duoneb NEB 3 ml [id number] GORGE Administration Ferrous Sulfate 325 mg 04/01/19 08:00 04/10/19 09:00 Feosol PO 325 mg QAM-WM GORGE Administration Gabapentin 300 mg 03/29/19 15:00 04/10/19 15:59 Neurontin PO 300 mg TID GORGE Administration Insulin Glargine 50 units/ 0.5 mls @ 0 mls/hr 03/29/19 21:00 04/09/19 23:37 Miscellaneous Medication SC 0.5 mls BID GORGE Administration Insulin Human Lispro 0 units 03/29/19 16:54 04/10/19 12:56 Humalog SC 4 unit .MODERATE SLIDING SC PRN Administration Moderate Correctional Scale Insulin Human Lispro 0 units 03/29/19 16:54 04/09/19 23:38 Humalog SC 2 unit .BEDTIME SLIDING SC PRN Administration Bedtime Correctional Scale Lactulose 20 gm 04/08/19 09:00 04/10/19 12:56 Lactulose PO 20 gm QID GORGE Administration Lisinopril 10 mg 03/30/19 09:00 04/10/19 09:00 Zestril PO 10 mg DAILY GORGE Administration Mirtazapine 15 mg 03/31/19 21:00 04/09/19 20:53 Remeron PO 15 mg HS GORGE Administration Mometasone Furoate/Formoterol Fumar 2 puff 03/31/19 18:30 04/10/19 06:56 Dulera 200 Mcg/5 Mcg Inhaler INH 2 puff BID-RT GORGE Administration Nadolol 40 mg 03/30/19 09:00 04/10/19 09:00 Corgard PO 40 mg DAILY GORGE Administration Ondansetron HCl 4 mg 03/29/19 12:26 04/02/19 08:54 Zofran Odt PO 4 mg Q6H PRN Administration Nausea/Vomiting Pantoprazole Sodium 40 mg 04/10/19 09:00 04/10/19 09:03 Protonix PO 40 mg DAILY GORGE Administration Rifaximin 550 mg 03/29/19 21:00 04/10/19 09:00 Xifaxan PO 550 mg BID GORGE Administration Sodium Chloride 10 ml 03/29/19 21:00 04/10/19 09:01 Flush - Normal Saline IVF 10 ml Q12HR GORGE Administration - Exam General Appearance: NAD Neck: supple, no JVD Heart: RRR, no gallops Respiratory: no wheezes, no rales Gastrointestinal: soft, normal bowel sounds Extremities: no edema Hosp A/P - Plan DVT proph w/SCDs Acute hypoxic resp failure s/p NIPPV (POA) Toxic Metabolic Encephalopathy due to Hepatic Encephalopathy (POA) Hepatic Hydrothorax (POA) s/p thoracentesis Hypokalemia/Hypomagnesemia Obesity BMI 37.9 DM2 HTN Chronic Hep C with Cirrhosis Other issues per previous notes PLAN: Cont Lactulose with Rifaximin Replace Magnessium and Potassium IVF dced Hold Lantus for now Cont other meds DC to SNF in AM if ok with GI AM labs
[2019-04-10] MEDS ORDERED: Potassium Chloride 20 MEQ TAB PO SCH (16:30)
[2019-04-10] MEDS ORDERED: Magnesium 2 GM/50 ML 2 GM in Premix Bag 1 BAG IVPB SCH (16:45)
[2019-04-10] MEDS: Mirtazapine 15 MG TAB PO SCH (21:04)
[2019-04-11] MEDS: Mometasone/Formoterol 120 PUFF INHALER INH SCH (07:15)
[2019-04-11 12:36] VITALS: BP 142/82; TEMP 98.4
[2019-04-11] MEDS: Lisinopril 10 MG TAB PO SCH (13:28)
[2019-04-11] MEDS: Nadolol 40 MG TAB PO SCH (13:28)
[2019-04-11] MEDS: Ferrous Sulfate 325 MG TAB PO SCH (13:29)
[2019-04-11] MEDS: Gabapentin 300 MG CAP PO SCH (13:29)
[2019-04-11] MEDS: Rifaximin 550 MG TAB PO SCH (13:29)
--- NOTE | 2019-04-11 13:55 | DIS ---
DATE OF ADMISSION: 03/29/2019 DATE OF DISCHARGE: 04/11/2019 DISCHARGE DISPOSITION: [facility]. ALLERGIES: THE PATIENT IS ALLERGIC TO INSULIN DETEMIR. DISCHARGE MEDICATIONS: 1. Zofran as needed. 2. Symbicort 160 b.i.d. 3. Ferrous sulfate 325 daily. 4. Gabapentin 300 mg 3 times daily. 5. Remeron 15 mg at bedtime. 6. Lantus insulin 20 units daily. Please titrate insulin based on the blood sugar. 7. Lactulose 20 g 4 times daily. Please titrate for 3 to 4 bowel movements daily. 8. Aldactone 50 mg daily. 9. Zofran 4 mg daily. 10. Rifaximin 550 mg b.i.d. Fall precautions emphasized. Basic metabolic profile after 1 week is recommended. FOLLOWUP: 1. Follow up with Dr. Suzan East, in 1 week. 2. Gastroenterology, Dr. Goldman in 2 to 3 weeks. The patient was seen and examined on the day of discharge. Denies any new complaints. No chest pain, shortness of breath, palpitations, fever, or chills reported. SIGNIFICANT LABS: Platelets 63. INR 20.5. ABG showed pH 7.38 with pCO2 of 41, PO2 of 66.9 with O2 saturation 92. Potassium 3.2. Magnesium 1.5. Thoracentesis fluid was consistent with transudate. Fungal smear from thoracentesis fluid is pending at this time. Ammonia maximum was 190. Yesterday, ammonia was 73. Sodium 133. Maximum creatinine 1.2, baseline creatinine 0.74. Blood cultures negative. Thoracentesis fluid cultures negative. Acid-fast culture pending at this time. DIAGNOSTIC TESTS: Chest x-ray on admission showed right-sided pleural effusion. Abdominal MRI with and without contrast showed cirrhosis of the liver with portal hypertension without any enhancing liver markers. Abdominal ultrasound showed cirrhosis with questionable portal vein thrombosis. Echocardiogram showed left ventricular ejection fraction 50% to 55% with grade 1 of 3 diastolic dysfunction, mild tricuspid regurgitation. INPATIENT PROCEDURES: On March,, the patient underwent ultrasound-guided right thoracentesis draining approximately 2 L of cloudy yellow fluid. BRIEF HOSPITAL COURSE: The patient is a 69-year-old female with chronic hepatitis C with cirrhosis, presented to the hospital with shortness of breath. The patient was found to be hypoxic requiring noninvasive positive pressure ventilation in the emergency room. She was monitored in the intermediate care unit. A workup was consistent with [id number] size right-sided pleural effusion. She was empirically started on antibiotics as well initially. She was seen by Pulmonary, Dr. Ferrer. The thoracentesis was consistent with transudate. She was also evaluated by Gastroenterology, Dr. Goldman. Her workup was also consistent with hepatic encephalopathy, that improved with lactulose and rifaximin. She also had mild acute kidney injury that improved with IV fluids. She will benefit from a repeat labs next week. She also had some electrolyte abnormalities that has been replaced. FINAL DIAGNOSES: 1. Toxic metabolic encephalopathy secondary to hepatic encephalopathy, present on admission. 2. Acute hypoxic respiratory failure secondary to [id number] size right-sided pleural effusion, present on admission, status post thoracentesis. 3. Electrolyte abnormalities including hypokalemia corrected. 4. Hypomagnesemia corrected. 5. Hepatic hydrothorax. 6. Obesity with a BMI of 37.9. 7. Diabetes mellitus type 2. 8. Hypertension. 9. Chronic hepatitis C with cirrhosis and portal hypertension. 10. Mild acute kidney injury on chronic kidney disease stage 2. 11. Diabetes mellitus type 2. 12. Obstructive sleep apnea. 13. Chronic thrombocytopenia and coagulopathy secondary to cirrhosis, present on admission. 14. Hypertension. TIME SPENT WITH PATIENT: Total time coordinating the discharge of this patient was 33 minutes. Job ID: [id number]
[2019-04-11 19:42] LABS: Anion Gap 11 mmol/L (10-20); BUN (Urea Nitrogen) 13 mg/dL (9.8-20.1); Calc. Creatinine Clearance 101 mL/min (70-130); Calcium 8.7 mg/dL (7.8-10.44); Carbon Dioxide 20 mmol/L (23-31); Chloride 108 mmol/L (98-107); Estimated GFR-MDRD 72; Glucose 129 mg/dL (80-115); Magnesium 1.7 mg/dL (1.6-2.6); Potassium 4.3 mmol/L (3.5-5.1); Sodium 135 mmol/L (136-145)
== END 2019-04-11 14:48 | DRG 186 ==
LOC: ERS 07:03 → CCU 10:35 → T4-A 16:28
PROVIDERS: ADMIT Internal Medicine; ATTEND Internal Medicine
PROC: 0W993ZZ Drainage of Right Pleural Cavity, Percutaneous Approach (ICD-10-PCS; principal; 2019-03-29)
PROC: 5A09457 Assistance with Respiratory Ventilation, 24-96 Consecutive Hours, Continuous Positive Airway Pressure (ICD-10-PCS; 2019-03-29)
PROC: 0W993ZZ Drainage of Right Pleural Cavity, Percutaneous Approach (ICD-10-PCS; 2019-04-02)
DX: J94.8 Other specified pleural conditions (principal); J96.01 Acute respiratory failure with hypoxia; G92 Toxic encephalopathy; K76.6 Portal hypertension; E87.3 Alkalosis; N17.9 Acute kidney failure, unspecified; D68.4 Acquired coagulation factor deficiency; K72.90 Hepatic failure, unspecified without coma; F31.9 Bipolar disorder, unspecified; G47.33 Obstructive sleep apnea (adult) (pediatric); K22.70 Barrett's esophagus without dysplasia; K74.69 Other cirrhosis of liver; D69.59 Other secondary thrombocytopenia; D73.1 Hypersplenism; E66.01 Morbid (severe) obesity due to excess calories; F41.9 Anxiety disorder, unspecified; F17.210 Nicotine dependence, cigarettes, uncomplicated; B18.2 Chronic viral hepatitis C; I12.9 Hypertensive chronic kidney disease with stage 1 through stage 4 chronic kidney disease, or unspecified chronic kidney disease; E11.22 Type 2 diabetes mellitus with diabetic chronic kidney disease; N18.2 Chronic kidney disease, stage 2 (mild); E87.6 Hypokalemia; E83.42 Hypomagnesemia; Z90.49 Acquired absence of other specified parts of digestive tract; Z79.4 Long term (current) use of insulin; Z68.39 Body mass index [BMI] 39.0-39.9, adult; Z90.710 Acquired absence of both cervix and uterus; Z79.899 Other long term (current) drug therapy; Z88.8 Allergy status to other drugs, medicaments and biological substances
CPT/HCPCS: 36415; 36416; 36430; 71045; 74018; 74183; 76705; 76942; 80048; 80053; 82140; 82150; 82553; 82805; 82945; 83605; 83615; 83735; 83880; 83986; 84100; 84157; 84478; 84484; 85025; 85060; 85610; 85730; 86850; 86900; 86901; 87040; 87070; 87116; 87205; 87206; 88112; 88305; 89051; 93005; 93306; 94640; 94660; 94760; 96365; 96374; C9113; J0456; J0696; J1815; J1940; J3475; J3490; J7050; J7611; J7620; P9035; Q0162

== ENCOUNTER 2019-10-25 12:55 | Inpatient (IN) | payer MEDICARE, OTHER ==
[2019-10-25 13:40] LABS: Bilirubin Negative (Negative); Blood, Urine Negative (Negative); Clarity Clear (Clear); Glucose, Urine (Dipstick) Normal (Negative); Leukocyte Negative Leu/uL (Negative); Nitrite Negative (Negative); Protein, Urine (Dipstick) 10 mg/dL (Neg-Trace); Urobilinogen 6 mg/dL (Less than 2)
[2019-10-25 13:42] LABS: #Eosinphils 0.1 thou/uL (0.0-0.7); #Lymphocytes 2.2 thou/uL (1.20-3.40); #Monocytes 0.5 thou/uL (0.11-0.59); #Neutrophils 3.5 thou/uL (1.40-6.50); %Basophils 0.6 % (0.0-1.0); %Eosinophils 2.1 % (0.0-10.0); %Lymphocytes 34.3 % (21.0-51.0); %Monocytes 8.2 % (0.0-10.0); %Neutrophils 54.8 % (42.0-75.0); Mean Corpuscular HGB CONC 34.8 g/dL (32.0-36.0); Mean Corpuscular Hemoglobin 31.9 pg (27.0-31.0); Mean Corpuscular Volume 91.7 fL (78.0-98.0); Mean Platelet Volume 9.5 fL (7.4-10.4); Platelet Count 78 thou/uL (130-400); White Blood Cell (WBC) Count 6.4 thou/uL (4.8-10.8)
[2019-10-25 14:01] LABS: ALT (SGPT) 30 U/L (8-55); AST (SGOT) 47 U/L (5-34); Acetaminophen Less than 6.0 mcg/mL (10.0-30.0); Albumin 2.9 g/dL (3.4-4.8); Alcohol Less than 10 mg/dL (Less than 10); Alkaline Phosphatase 124 U/L (40-110); Anion Gap 13 mmol/L (10-20); BUN (Urea Nitrogen) 31 mg/dL (9.8-20.1); Bilirubin, Total 1.2 mg/dL (0.2-1.2); Calc. Creatinine Clearance 0 mL/min (70-130); Calcium 9.1 mg/dL (7.8-10.44); Carbon Dioxide 22 mmol/L (23-31); Chloride 100 mmol/L (98-107); Estimated GFR-MDRD 34; Globulin 4.2 g/dL (2.4-3.5); Glucose 143 mg/dL (80-115); Protein, Total 7.1 g/dL (6.0-8.3); Salicylate Less than 8.0 mg/dL (15.0-30.0); Sodium 130 mmol/L (136-145)
--- NOTE | 2019-10-25 14:41 | CT ---
EXAM: CT brain without contrast HISTORY: Altered mental status COMPARISON: 03/15/2019 TECHNIQUE: Multiple contiguous axial images were obtained and a CT of the brain without contrast. FINDINGS: There are scattered hypodensities in the subcortical and periventricular white matter consi stent with small vessel ischemic disease. There is no evidence of hydrocephalus, intracranial hemorrhage, or extra-axial fluid collection. The calvarium and overlying soft tissues are unremarkable. The visualized paranasal sinuses and masto id air cells are well aerated. IMPRESSION: No evidence of acute intracranial abnormality
--- NOTE | 2019-10-25 14:54 | RAD ---
Chest AP view INDICATION: Emergency examination; chest pain COMPARISON: April 16, 2019 FINDINGS: Lungs: The lungs are clear Cardiac silhouette: The cardiomediastinal silhouette appears within normal limits. Pulmonary vasculature: Normal Pleural spaces: No pleural effusion or pneumothorax is demonstrated. Upper abdomen: No abnormality seen. Osseous structures: No acute osseous abnormality. Additional findings: None. IMPRESSION: No acute cardiopulmonary abnormality.
[2019-10-25 15:25] LABS: Actual Bicarbonate (HCO3a) 17.3 mEq/L (22-28); Analyzer IN Cardio ER; Base Excess (BEa) -5.3 mEq/L (-2.0 to +3.0); Calcium, Ionized (arterial) 1.11 mmol/L (1.12-1.30); Carboxyhemoglobin (COHb) 0.2 gm% (0.0-3.0); Hemoglobin (Hb) 13.2 g/dL (12.0-16.0); O2 Tension (PaO2), arterial 95.5 mmHg (> 70.0); Potassium - ABG Lab 4.59 mmol/L (3.70-5.30); pH, Arterial 7.44 (7.35-7.45)
[2019-10-25 15:30] LABS: Puncture Site RBA
[2019-10-25] MEDS ORDERED: Ondansetron PF 4 MG/2 ML Vial IVP PRN (16:21)
[2019-10-25] MEDS ORDERED: Ondansetron ODT 4 MG TAB PO PRN (16:21)
[2019-10-25] MEDS ORDERED: Sodium Chloride 0.9% 1,000 ML IV SCH (16:30)
--- NOTE | 2019-10-25 16:31 | PDOC.HHP ---
Hospitalist HPI - History of Present Illness altered mental state History of Present Illness: most of the History was taken from EMR / EMS records. patient is lethargic and no family present at the moment of my evaluation. Case of an 69y/o female with pmhx of htn, dmt2, hep c with cirrhosis and oa who comes to hospital brought by ems due to altered mental state. apparently patient was on her usual state of health until today when patient became unresponsive and lethargic. refers she was like this in the morning but he thought she was just sleepy, when she check on her at noon and saw there was no change he became worried and called ems. at the ED patient dx with hepatic encephalopathy with an ammonia of 139. patient with a history of poor medication compliance. apparently last time she took the lactulose was 2 days ago Hospitalist ROS - Review of Systems ROS unobtainable: due to mental status Hospitalist History - Past Medical History Source: RN notes reviewed, old records Cardiac: reports: HTN Hepatobiliary: reports: Hep A/B/C Endocrine: reports: Diabetes - Past Surgical History Past Surgical History: reports: Appendectomy, Hysterectomy, Tonsillectomy - Family History Family History: reports: no pertinent history - Social History Smoking Status: Never smoker Alcohol: reports: None Drugs: reports: none Living Situation: With Family - Exam Eye: PERRL, anicteric sclera ENT: normocephalic atraumatic, no oropharyngeal lesions Neck: supple, symmetric, no JVD Heart: RRR, no murmur, no gallops Respiratory: CTAB, no wheezes, no rales Gastrointestinal: soft, non-tender, non-distended Extremities: no cyanosis, no clubbing, no edema Skin: normal turgor, no lesions Neurological: cranial nerve grossly intact, normal sensation to touch Musculoskeletal: normal tone, normal strength Psychiatric: lethargic Hospitalist Results - Labs Result Diagrams: 10/25/19 13:30 10/25/19 13:30 Lab results: WBC 6.4 thou/uL (4.8-10.8) 10/25/19 13:30 Hgb 14.0 g/dL (12.0-16.0) 10/25/19 13:30 Hct 40.3 % (36.0-47.0) 10/25/19 13:30 MCV 91.7 fL (78.0-98.0) 10/25/19 13:30 Plt Count 78 thou/uL (130-400) L 10/25/19 13:30 Neutrophils % 54.8 % (42.0-75.0) 10/25/19 13:30 ABG pH 7.44 (7.35-7.45) 10/25/19 15:15 ABG pCO2 26.0 mmHg (35.0-45.0) L 10/25/19 15:15 ABG pO2 95.5 mmHg (> 70.0) H 10/25/19 15:15 Sodium 130 mmol/L (136-145) L 10/25/19 13:30 Potassium 5.0 mmol/L (3.5-5.1) 10/25/19 13:30 Chloride 100 mmol/L (98-107) 10/25/19 13:30 Carbon Dioxide 22 mmol/L (23-31) L 10/25/19 13:30 BUN 31 mg/dL (9.8-20.1) H 10/25/19 13:30 Creatinine 1.52 mg/dL (0.6-1.1) H 10/25/19 13:30 Glucose 143 mg/dL (80-115) H 10/25/19 13:30 Calcium 9.1 mg/dL (7.8-10.44) 10/25/19 13:30 Total Bilirubin 1.2 mg/dL (0.2-1.2) 10/25/19 13:30 AST 47 U/L (5-34) H 10/25/19 13:30 ALT 30 U/L (8-55) 10/25/19 13:30 Alkaline Phosphatase 124 U/L (40-110) H 10/25/19 13:30 Ammonia 139 umol/L (18-72) H 10/25/19 13:30 Troponin I 0.012 ng/mL (< 0.028) 10/25/19 13:30 Serum Total Protein 7.1 g/dL (6.0-8.3) 10/25/19 13:30 Albumin 2.9 g/dL (3.4-4.8) L 10/25/19 13:30 Urine Ketones Trace mg/dL (Negative) A 10/25/19 13:25 Urine Blood Negative (Negative) 10/25/19 13:25 Urine Nitrite Negative (Negative) 10/25/19 13:25 Ur Leukocyte Esterase Negative Donna/uL (Negative) 10/25/19 13:25 - Radiology Interpretation CT scan - head Additional Comment: no acute pathology Chest x-ray Additional Comment: no consolidations effusions or infiltrates Hospitalist H&P A/P - Problem (1) Hepatic encephalopathy Code(s): K72.90 - HEPATIC FAILURE, UNSPECIFIED WITHOUT COMA Status: Acute (2) Hyponatremia Code(s): E87.1 - HYPO-OSMOLALITY AND HYPONATREMIA Status: Acute (3) SETH (acute kidney injury) Code(s): N17.9 - ACUTE KIDNEY FAILURE, UNSPECIFIED Status: Acute (4) DM type 2 (diabetes mellitus, type 2) Status: Chronic Qualifiers: Diabetes mellitus senior living insulin use: with senior living use Diabetes mellitus complication status: without complication Qualified Code(s): E11.9 - Type 2 diabetes mellitus without complications; Z79.4 - retirement (current) use of insulin (5) Hypertension Code(s): I10 - ESSENTIAL (PRIMARY) HYPERTENSION Status: Chronic (6) Liver cirrhosis Code(s): K74.60 - UNSPECIFIED CIRRHOSIS OF LIVER Status: Chronic (7) Thrombocytopenia Code(s): D69.6 - THROMBOCYTOPENIA, UNSPECIFIED Status: Chronic - Plan Plan: 69y/o fem with the [place] pmhx who presents with altered mental state with an ammonia of 139. hx of poor compliance with medication. last dose was 2 days ago. no leukocytosis, clean u/a and cxr -admit as obs -lactulose administration with a goal of atleast 3 stools a day -npo -continue home meds when possible - gently iv hydration to improve renal function and sodium - monitor to prevent fluid overload -f/u bmps - no dvt prophylaxis due to thrombocytopenia - accu checks q 6hrn ss
[2019-10-25] MEDS ORDERED: Dextrose 50% Abboject 50 ML SYRINGE SLOW IVP PRN (16:49)
[2019-10-25] MEDS ORDERED: Dextrose 5% in Water 1,000 ML IV PRN (16:49)
[2019-10-25 20:53] VITALS: BMI 34.5
[2019-10-26] MEDS ORDERED: Lactulose 10 GM/15 ML Oral Solution PR SCH (00:45)
[2019-10-26 07:59] LABS: Anion Gap 14 mmol/L (10-20); BUN (Urea Nitrogen) 30 mg/dL (9.8-20.1); Calc. Creatinine Clearance 63 mL/min (70-130); Calcium 8.5 mg/dL (7.8-10.44); Carbon Dioxide 22 mmol/L (23-31); Chloride 107 mmol/L (98-107); Estimated GFR-MDRD 44; Glucose 75 mg/dL (80-115); Potassium 4.7 mmol/L (3.5-5.1); Sodium 138 mmol/L (136-145)
--- NOTE | 2019-10-26 15:19 | EKG ---
Test Reason : AMS Blood Pressure : / mmHG Vent. Rate : 071 BPM Atrial Rate : 071 BPM P-R Int : 142 ms QRS Dur : 078 ms QT Int : 438 ms P-R-T Axes : 040 008 042 degrees QTc Int : 475 ms Sinus rhythm with occasional Premature ventricular complexes Septal infarct , age undetermined Abnormal ECG Confirmed by NICK PATEL, MARITZA ([id number]), website/blog editor WALDO ONEILL ([id number]) on 10/26/2019 3:19:35 PM Referred By: NICK Confirmed By:MARITZA ROMERO MD
--- NOTE | 2019-10-26 18:51 | PDOC.HOSPP ---
- Subjective Encounter Date: 10/26/19 Subjective: patient seen on f/u for hepatic encephalopathy. compared to yesterday when pt was lethargic and barely responsive she is much improved, now is alert and awake but is fully disoriented even to self - Objective Vital Signs & Weight: Vital Signs (12 hours) Temp Pulse Resp BP Pulse Ox 10/26/19 16:00 98.7 F 73 16 115/78 90 L 10/26/19 11:54 98.1 F 79 17 115/73 98 10/26/19 08:00 98.2 F 79 15 102/55 L 94 L Weight Admit Weight 201 lb 8.04 oz Weight 201 lb 8.04 oz I&O: 10/25/19 10/26/19 10/27/19 06:59 06:59 06:59 Intake Total 600 Balance 600 Result Diagrams: 10/25/19 13:30 10/26/19 03:54 Additional Labs: Accuchecks 10/26/19 10/26/19 10/26/19 16:39 12:00 05:32 POC Glucose 112 H 81 79 10/25/19 21:40 POC Glucose 123 H Hospitalist ROS - Review of Systems ROS unobtainable: due to mental status - Medication Medications: Active Medications Generic Name Dose Route Start Last Admin Trade Name Freq PRN Reason Stop Dose Admin Lactulose 20 gm 10/25/19 17:00 10/26/19 18:16 Lactulose PO 20 gm QID GORGE Administration - Exam General Appearance: NAD, awake alert Eye: PERRL, anicteric sclera ENT: normocephalic atraumatic, no oropharyngeal lesions Neck: supple, symmetric, no JVD Heart: RRR, no murmur, no gallops Respiratory: CTAB, no wheezes, no rales Gastrointestinal: soft, non-tender, non-distended Extremities: no cyanosis, no clubbing Skin: normal turgor, no lesions Neurological: cranial nerve grossly intact, normal sensation to touch Musculoskeletal: normal tone, normal strength Psychiatric: not oriented Hosp A/P (1) Hepatic encephalopathy Code(s): K72.90 - HEPATIC FAILURE, UNSPECIFIED WITHOUT COMA Status: Acute (2) Hyponatremia Code(s): E87.1 - HYPO-OSMOLALITY AND HYPONATREMIA Status: Acute (3) SETH (acute kidney injury) Code(s): N17.9 - ACUTE KIDNEY FAILURE, UNSPECIFIED Status: Acute (4) DM type 2 (diabetes mellitus, type 2) Status: Chronic Qualifiers: Diabetes mellitus skilled nursing insulin use: with 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 exterminator use Diabetes mellitus complication status: without complication Qualified Code(s): E11.9 - Type 2 diabetes mellitus without complications; Z79.4 - snf (current) use of insulin (5) Hypertension Code(s): I10 - ESSENTIAL (PRIMARY) HYPERTENSION Status: Chronic (6) Liver cirrhosis Code(s): K74.60 - UNSPECIFIED CIRRHOSIS OF LIVER Status: Chronic (7) Thrombocytopenia Code(s): D69.6 - THROMBOCYTOPENIA, UNSPECIFIED Status: Chronic - Plan - continues with lactulose, much improved with decrease ammonia and increased activity but still not at base - continue lactulose - speech eval to evaluated safety of starting diet - starting home meds when able - unable to provide dvt prophylaxis due to thrombocytopenia -seth improved - hyponatremia corrected -continue accu checks and ss
[2019-10-27 04:15] LABS: Anion Gap 12 mmol/L (10-20); BUN (Urea Nitrogen) 26 mg/dL (9.8-20.1); Calc. Creatinine Clearance 74 mL/min (70-130); Calcium 8.2 mg/dL (7.8-10.44); Carbon Dioxide 19 mmol/L (23-31); Chloride 109 mmol/L (98-107); Estimated GFR-MDRD 54; Glucose 126 mg/dL (80-115); Potassium 4.1 mmol/L (3.5-5.1); Sodium 136 mmol/L (136-145)
[2019-10-27 05:47] LABS: Band 4 % (5-11); Eosinophils 1 % (0-10); Hemoglobin 12.4 g/dL (12.0-16.0); Lymphocytes 35 % (21-51); MDiff Complete? YES; Mean Corpuscular HGB CONC 33.8 g/dL (32.0-36.0); Mean Corpuscular Hemoglobin 31.5 pg (27.0-31.0); Mean Corpuscular Volume 93.2 fL (78.0-98.0); Mean Platelet Volume 9.8 fL (7.4-10.4); Monocytes 12 % (0-10); Neutrophil 47 % (42-75); Platelet Count 70 thou/uL (130-400); Platelet Morphology Comment Appears Decreased; RBC Distribution Width 13.3 % (11.5-14.5); Reactive Lymphocytes 1 % (0-10); Red Blood Cell (RBC) Count 3.92 mill/uL (4.20-5.40); White Blood Cell (WBC) Count 4.9 thou/uL (4.8-10.8)
[2019-10-27] MEDS: Furosemide 20 MG TAB PO SCH (09:52)
[2019-10-27] MEDS: Lisinopril 2.5 MG TAB PO SCH (09:52)
[2019-10-27] MEDS: Gabapentin 300 MG CAP PO SCH ×2 (09:52→20:52)
[2019-10-27] MEDS: Venlafaxine HCl XR 150 MG CAP PO SCH (09:52)
[2019-10-27] MEDS: Spironolactone 25 MG TAB PO SCH (09:52)
[2019-10-27] MEDS ORDERED: Dextrose 5% in Water 1,000 ML IV PRN (17:09)
[2019-10-27] MEDS ORDERED: Dextrose 50% Abboject 50 ML SYRINGE SLOW IVP PRN (17:09)
--- NOTE | 2019-10-27 17:25 | PDOC.HOSPP ---
- Subjective Encounter Date: 10/27/19 Encounter Time: 17:23 Subjective: Ms. Miller was seen today in follow-up of hepatic encephalopathy. She is more alert, and her nurse reports that she is more steady on her feet. She is still somewhat confused, but not sure if this is her baseline. - Objective Vital Signs & Weight: Vital Signs (12 hours) Temp Pulse Resp BP BP Pulse Ox 10/27/19 09:54 76 128/74 10/27/19 07:55 97.6 F 76 16 114/73 96 Weight Admit Weight 201 lb 8.04 oz Weight 201 lb 8.04 oz I&O: 10/26/19 10/27/19 10/28/19 06:59 06:59 06:59 Intake Total 600 Balance 600 Result Diagrams: 10/27/19 03:54 10/27/19 03:54 Additional Labs: Accuchecks 10/27/19 10/27/19 10/27/19 16:34 11:14 00:51 POC Glucose 367 H 340 H 160 H Hospitalist ROS - Medication Medications: Active Medications Generic Name Dose Route Start Last Admin Trade Name Freq PRN Reason Stop Dose Admin Furosemide 20 mg 10/27/19 09:00 10/27/19 09:52 Lasix PO 20 mg DAILY GORGE Administration Gabapentin 300 mg 10/27/19 09:00 10/27/19 09:52 Neurontin PO 300 mg BID GORGE Administration Lactulose 20 gm 10/25/19 17:00 10/27/19 15:54 Lactulose PO 20 gm QID GORGE Administration Lisinopril 2.5 mg 10/27/19 09:00 10/27/19 09:52 Zestril PO 2.5 mg DAILY GORGE Administration Metoprolol Succinate 50 mg 10/27/19 09:00 10/27/19 09:52 Toprol Xl PO 50 mg DAILY GORGE Administration Spironolactone 50 mg 10/27/19 09:00 10/27/19 09:52 Aldactone PO 50 mg DAILY GORGE Administration Venlafaxine HCl 150 mg 10/27/19 09:00 10/27/19 09:52 Effexor Xr PO 150 mg DAILY GORGE Administration - Exam Eye: PERRL, anicteric sclera Heart: RRR, no murmur, no gallops, no rubs, normal peripheral pulses Respiratory: CTAB, no wheezes, no rales, no ronchi, normal chest expansion Gastrointestinal: soft, non-tender, non-distended, normal bowel sounds Extremities: no cyanosis, no edema Hosp A/P (1) Hepatic encephalopathy Code(s): K72.90 - HEPATIC FAILURE, UNSPECIFIED WITHOUT COMA Status: Acute (2) Hyponatremia Code(s): E87.1 - HYPO-OSMOLALITY AND HYPONATREMIA Status: Acute (3) Encephalopathy acute Code(s): G93.40 - ENCEPHALOPATHY, UNSPECIFIED Status: Acute (4) 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) Code(s): K74.69 - OTHER CIRRHOSIS OF LIVER; B19.20 - UNSPECIFIED VIRAL HEPATITIS C WITHOUT HEPATIC COMA Status: Chronic (5) DM type 2 (diabetes mellitus, type 2) Status: Chronic Qualifiers: Diabetes mellitus intermediate project manager insulin use: with intermediate project manager use Diabetes mellitus complication status: without complication Qualified Code(s): E11.9 - Type 2 diabetes mellitus without complications; Z79.4 - intermediate project manager (current) use of insulin (6) Hypertension Code(s): I10 - ESSENTIAL (PRIMARY) HYPERTENSION Status: Chronic - Plan * Hepatic encephalopathy- improving * Cirrhosis due to Hepatitis C- stable * Hyponatremia- corrected * DM- blood glucose is elevated- will add a low dose of NPH ( due to reported allergy to Levemir ). Continue SSI * Hopefully home in 1-2 days
[2019-10-27] MEDS: HumaLOG 300 UNITS/3 ML VIAL SC PRN ×2 (19:06→21:03)
[2019-10-27] MEDS: NPH, Human Insulin Isophane 300 UNIT/3 ML VIAL SC SCH (20:53)
[2019-10-27] MEDS: Mirtazapine 15 MG TAB PO SCH (20:53)
[2019-10-28] MEDS: Venlafaxine HCl XR 150 MG CAP PO SCH (08:33)
[2019-10-28] MEDS: Spironolactone 25 MG TAB PO SCH (08:33)
[2019-10-28] MEDS: Gabapentin 300 MG CAP PO SCH ×2 (08:33→20:29)
[2019-10-28] MEDS: Lisinopril 2.5 MG TAB PO SCH (08:33)
[2019-10-28] MEDS: Furosemide 20 MG TAB PO SCH (08:34)
[2019-10-28] MEDS: NPH, Human Insulin Isophane 300 UNIT/3 ML VIAL SC SCH ×2 (08:36→20:33)
[2019-10-28] MEDS: HumaLOG 300 UNITS/3 ML VIAL SC PRN ×3 (12:19→20:33)
--- NOTE | 2019-10-28 16:47 | PDOC.HOSPP ---
- Subjective Encounter Date: 10/28/19 Encounter Time: 16:45 Subjective: Ms. Miller was seen today in follow-up of hepatic encephalopathy. She does not have any new complaints. She wants to go home. She walked this morning with the walking program. - Objective Vital Signs & Weight: Vital Signs (12 hours) Temp Pulse Resp BP BP Pulse Ox 10/28/19 08:33 85 126/71 10/28/19 07:15 98.0 F 85 18 126/71 94 L Weight Admit Weight 201 lb 8.04 oz Weight 201 lb 8.04 oz I&O: 10/27/19 10/28/19 10/29/19 06:59 06:59 06:59 Intake Total 1200 Balance 1200 Result Diagrams: 10/27/19 03:54 10/27/19 03:54 Additional Labs: Accuchecks 10/28/19 10/28/19 10/28/19 16:05 11:11 04:36 POC Glucose 297 H 369 H 119 H 10/27/19 20:12 POC Glucose 338 H Hospitalist ROS - Medication Medications: Active Medications Generic Name Dose Route Start Last Admin Trade Name Freq PRN Reason Stop Dose Admin Furosemide 20 mg 10/27/19 09:00 10/28/19 08:34 Lasix PO 20 mg DAILY GORGE Administration Gabapentin 300 mg 10/27/19 09:00 10/28/19 08:33 Neurontin PO 300 mg BID GORGE Administration Insulin Human Lispro 0 units 10/27/19 17:09 10/28/19 12:19 Humalog SC 10 unit .MODERATE SLIDING SC PRN Administration Moderate Correctional Scale Insulin Human Lispro 0 units 10/27/19 17:09 10/27/19 21:03 Humalog SC 5 unit .BEDTIME SLIDING SC PRN Administration Bedtime Correctional Scale Insulin Human NPH 16 unit 10/27/19 21:00 10/28/19 08:36 Humulin N SC 16 unit BID GORGE Administration Lactulose 20 gm 10/25/19 17:00 10/28/19 11:19 Lactulose PO 20 gm QID GORGE Administration Lisinopril 2.5 mg 10/27/19 09:00 10/28/19 08:33 Zestril PO Not Given DAILY GORGE Metoprolol Succinate 50 mg 10/27/19 09:00 10/28/19 08:34 Toprol Xl PO Not Given DAILY GORGE Mirtazapine 30 mg 10/27/19 21:00 10/27/19 20:53 Remeron PO 30 mg HS GORGE Administration Spironolactone 50 mg 10/27/19 09:00 10/28/19 08:33 Aldactone PO 50 mg DAILY GORGE Administration Venlafaxine HCl 150 mg 10/27/19 09:00 10/28/19 08:33 Effexor Xr PO 150 mg DAILY GORGE Administration - Exam Eye: PERRL Heart: RRR, no murmur, no gallops, no rubs, normal peripheral pulses Respiratory: CTAB, no wheezes, no rales, no ronchi, normal chest expansion, no tachypnea Gastrointestinal: soft, non-distended, normal bowel sounds Extremities: no cyanosis, no edema Hosp A/P (1) Hepatic encephalopathy Code(s): K72.90 - HEPATIC FAILURE, UNSPECIFIED WITHOUT COMA Status: Acute (2) Hyponatremia Code(s): E87.1 - HYPO-OSMOLALITY AND HYPONATREMIA Status: Acute (3) Encephalopathy acute Code(s): G93.40 - ENCEPHALOPATHY, UNSPECIFIED Status: Acute (4) 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) Code(s): K74.69 - OTHER CIRRHOSIS OF LIVER; B19.20 - UNSPECIFIED VIRAL HEPATITIS C WITHOUT HEPATIC COMA Status: Chronic (5) DM type 2 (diabetes mellitus, type 2) Status: Chronic Qualifiers: Diabetes mellitus shelter insulin use: with shelter use Diabetes mellitus complication status: without complication Qualified Code(s): E11.9 - Type 2 diabetes mellitus without complications; Z79.4 - nursing home (current) use of insulin (6) Hypertension Code(s): I10 - ESSENTIAL (PRIMARY) HYPERTENSION Status: Chronic - Plan * Hepatic encephalopathy-imrpoved * I spoke with her - she is close to her baseline mental status. * Cirrhosis due to Hepatitis C- stable * Hyponatremia- corrected * DM- blood glucose is elevated-Continue NPH and SSI * Hopefully home tomorrow
[2019-10-28] MEDS: Mirtazapine 15 MG TAB PO SCH (20:29)
[2019-10-29] MEDS: HumaLOG 300 UNITS/3 ML VIAL SC PRN ×2 (07:05→11:42)
[2019-10-29 07:16] VITALS: BP 127/68; TEMP 98.2
[2019-10-29] MEDS: Lisinopril 2.5 MG TAB PO SCH (09:17)
[2019-10-29] MEDS: NPH, Human Insulin Isophane 300 UNIT/3 ML VIAL SC SCH (09:18)
[2019-10-29] MEDS: Furosemide 20 MG TAB PO SCH (09:18)
[2019-10-29] MEDS: Venlafaxine HCl XR 150 MG CAP PO SCH (09:18)
[2019-10-29] MEDS: Spironolactone 25 MG TAB PO SCH (09:18)
[2019-10-29] MEDS: Gabapentin 300 MG CAP PO SCH (09:18)
--- NOTE | 2019-10-29 14:05 | PDOC.HOSPP ---
- Subjective Encounter Date: 10/29/19 Encounter Time: 14:03 Subjective: Ms. Miller was seen today in follow-up of hepatic encephalopathy. She does not have any complaints today. - Objective Vital Signs & Weight: Vital Signs (12 hours) Temp Pulse Resp BP Pulse Ox 10/29/19 07:13 98.2 F 82 18 127/68 94 L 10/29/19 04:31 97.2 F L 80 17 142/83 H 96 Weight Admit Weight 201 lb 8.04 oz Weight 201 lb 8.04 oz I&O: 10/28/19 10/29/19 10/30/19 06:59 06:59 06:59 Intake Total 3375 Output Total 2 Balance 3373 Result Diagrams: 10/27/19 03:54 10/27/19 03:54 Additional Labs: Accuchecks 10/29/19 10/29/19 10/28/19 11:19 04:35 19:46 POC Glucose 263 H 352 H 225 H 10/28/19 16:05 POC Glucose 297 H Hospitalist ROS - Medication Medications: Active Medications Generic Name Dose Route Start Last Admin Trade Name Freq PRN Reason Stop Dose Admin Furosemide 20 mg 10/27/19 09:00 10/29/19 09:18 Lasix PO 20 mg DAILY GORGE Administration Gabapentin 300 mg 10/27/19 09:00 10/29/19 09:18 Neurontin PO 300 mg BID GORGE Administration Insulin Human Lispro 0 units 10/27/19 17:09 10/29/19 11:42 Humalog SC 6 unit .MODERATE SLIDING SC PRN Administration Moderate Correctional Scale Insulin Human Lispro 0 units 10/27/19 17:09 10/28/19 20:33 Humalog SC 2 unit .BEDTIME SLIDING SC PRN Administration Bedtime Correctional Scale Insulin Human NPH 16 unit 10/27/19 21:00 10/29/19 09:18 Humulin N SC 16 unit BID GORGE Administration Lactulose 20 gm 10/25/19 17:00 10/29/19 13:28 Lactulose PO 20 gm QID GORGE Administration Lisinopril 2.5 mg 10/27/19 09:00 10/29/19 09:17 Zestril PO 2.5 mg DAILY GORGE Administration Metoprolol Succinate 50 mg 10/27/19 09:00 10/29/19 09:18 Toprol Xl PO 50 mg DAILY GORGE Administration Mirtazapine 30 mg 10/27/19 21:00 10/28/19 20:29 Remeron PO 30 mg HS GORGE Administration Spironolactone 50 mg 10/27/19 09:00 10/29/19 09:18 Aldactone PO 50 mg DAILY GORGE Administration Venlafaxine HCl 150 mg 10/27/19 09:00 10/29/19 09:18 Effexor Xr PO 150 mg DAILY GORGE Administration - Exam Eye: PERRL, anicteric sclera Heart: RRR, no murmur, no gallops, no rubs, normal peripheral pulses Respiratory: CTAB, no wheezes, no rales, no ronchi, normal chest expansion, no tachypnea Gastrointestinal: soft, non-tender, non-distended, normal bowel sounds, no palpable masses Extremities: no cyanosis, no edema Hosp A/P (1) Hepatic encephalopathy Code(s): K72.90 - HEPATIC FAILURE, UNSPECIFIED WITHOUT COMA Status: Acute (2) Hyponatremia Code(s): E87.1 - HYPO-OSMOLALITY AND HYPONATREMIA Status: Acute (3) Encephalopathy acute Code(s): G93.40 - ENCEPHALOPATHY, UNSPECIFIED Status: Acute (4) 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) Code(s): K74.69 - OTHER CIRRHOSIS OF LIVER; B19.20 - UNSPECIFIED VIRAL HEPATITIS C WITHOUT HEPATIC COMA Status: Chronic (5) DM type 2 (diabetes mellitus, type 2) Status: Chronic Qualifiers: Diabetes mellitus longterm insulin use: with petroleum terminal plant operator use Diabetes mellitus complication status: without complication Qualified Code(s): E11.9 - Type 2 diabetes mellitus without complications; Z79.4 - alf (current) use of insulin (6) Hypertension Code(s): I10 - ESSENTIAL (PRIMARY) HYPERTENSION Status: Chronic - Plan * Hepatic encephalopathy-resolved * She is stable for discharge home today
--- NOTE | 2019-10-30 12:41 | DIS ---
DATE OF ADMISSION: 10/26/2019 DATE OF DISCHARGE: 10/29/2019 DISCHARGE DISPOSITION: Home with home health. DISCHARGE DIAGNOSES: 1. Hepatic encephalopathy. 2. Hypertension. 3. History of hepatitis C. DISCHARGE MEDICATIONS: Include: 1. Lactulose 20 g p.o. q.i.d. 2. Aldactone 50 mg daily. 3. Lantus insulin 20 units daily as directed. 4. Venlafaxine 150 mg extended release p.o. daily. 5. Omeprazole 40 mg p.o. daily. 6. Remeron 30 mg at bedtime. 7. Metoprolol succinate extended release 50 mg daily. 8. Lisinopril 2.5 mg p.o. daily. 9. Gabapentin 300 mg p.o. b.i.d. 10. Lasix 20 mg daily. IMAGING DONE DURING HOSPITAL COURSE: The patient had a CT scan of the brain, which was negative for any acute intracranial process. HOSPITAL COURSE: Ms. Miller is a pleasant 69-year-old female, who was admitted to the hospital after her noted that she seemed a bit lethargic and confused. The full details of which are outlined in the history and physical by Dr. Nash. She was evaluated and found to be in hepatic encephalopathy. She had an elevated ammonia level. She was treated with lactulose and improved over the course of the next several days. It is unclear what precipitated this. It may have been due to poor compliance at the time of discharge. Home health evaluation was made to help her out with her medications at home and she was discharged home and should have an outpatient followup in 1 to 2 weeks, which was instructed and also discharge instructions and plans were discussed with the patient's daughter and over the phone the day prior to discharge. Job ID: [id number]
== END 2019-10-29 14:46 | disposition home or self-care (01) | DRG 442 ==
LOC: ERS 12:55 → T4-B 15:28 → OBSVTOIN 10-26 15:13
PROVIDERS: ADMIT Internal Medicine; ATTEND Internal Medicine
DX: K72.00 Acute and subacute hepatic failure without coma (principal); E87.1 Hypo-osmolality and hyponatremia; N17.9 Acute kidney failure, unspecified; K51.90 Ulcerative colitis, unspecified, without complications; I10 Essential (primary) hypertension; K74.60 Unspecified cirrhosis of liver; D69.6 Thrombocytopenia, unspecified; F41.9 Anxiety disorder, unspecified; F32.9 Major depressive disorder, single episode, unspecified; F17.210 Nicotine dependence, cigarettes, uncomplicated; E11.65 Type 2 diabetes mellitus with hyperglycemia; B18.2 Chronic viral hepatitis C; Z91.14 Patient's other noncompliance with medication regimen; Z90.49 Acquired absence of other specified parts of digestive tract; Z90.710 Acquired absence of both cervix and uterus; Z86.19 Personal history of other infectious and parasitic diseases; Z79.4 Long term (current) use of insulin
CPT/HCPCS: 36415; 36416; 51701; 70450; 71045; 80048; 80053; 80307; 81003; 82140; 82805; 84443; 84484; 85007; 85025; 85027; 93005; 96360; G0378; J1815

== ENCOUNTER 2019-11-25 22:19 | Inpatient (IN) | payer MEDICARE, OTHER ==
--- NOTE | 2019-11-25 23:00 | RAD ---
Chest one view HISTORY: Altered level status. COMPARISON: 10/18/2019. FINDINGS: Cardiac silhouette is magnified by projection. Pulmonary vasculature are limits of normal w ith subtle widespread reticulonodular interstitial prominence. Mediastinum is midline. No lobar consolidation or evidence of pneumothorax. IMPRESSION : No active cardiopulmonary abnormalities are demonstrated.
[2019-11-25 23:04] LABS: #Eosinphils 0.1 thou/uL (0.0-0.7); #Monocytes 0.6 thou/uL (0.11-0.59); #Neutrophils 3.5 thou/uL (1.40-6.50); %Basophils 0.7 % (0.0-1.0); %Eosinophils 1.4 % (0.0-10.0); %Monocytes 7.8 % (0.0-10.0); %Neutrophils 48.2 % (42.0-75.0); Mean Corpuscular HGB CONC 33.9 g/dL (32.0-36.0); Mean Corpuscular Hemoglobin 30.5 pg (27.0-31.0); Mean Corpuscular Volume 89.9 fL (78.0-98.0); Mean Platelet Volume 9.6 fL (7.4-10.4); Platelet Count 84 thou/uL (130-400); RBC Distribution Width 13.7 % (11.5-14.5); Red Blood Cell (RBC) Count 4.26 mill/uL (4.20-5.40); White Blood Cell (WBC) Count 7.2 thou/uL (4.8-10.8)
[2019-11-25 23:13] LABS: ALT (SGPT) 35 U/L (8-55); AST (SGOT) 66 U/L (5-34); Albumin 3.1 g/dL (3.4-4.8); Alkaline Phosphatase 137 U/L (40-110); Anion Gap 12 mmol/L (10-20); BUN (Urea Nitrogen) 20 mg/dL (9.8-20.1); Bilirubin, Total 1.4 mg/dL (0.2-1.2); Calc. Creatinine Clearance 0 mL/min (70-130); Calcium 8.7 mg/dL (7.8-10.44); Carbon Dioxide 22 mmol/L (23-31); Chloride 99 mmol/L (98-107); Estimated GFR-MDRD 42; Globulin 4.3 g/dL (2.4-3.5); Glucose 101 mg/dL (80-115); Lipase 72 U/L (8-78); Magnesium 1.4 mg/dL (1.6-2.6); Potassium 5.1 mmol/L (3.5-5.1); Protein, Total 7.4 g/dL (6.0-8.3); Sodium 128 mmol/L (136-145)
--- NOTE | 2019-11-25 23:21 | CT ---
CT head noncontrast HISTORY: Altered mental status. COMPARISON: 10/25/2019. FINDINGS: There is no evidence of acute intracranial hemorrhage or infarct. 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 Mild diffuse cortical atrophy. There is no mass effect or shift of midline structures. IMPRESSION : Chronic-type findings are stable. No acute intracranial abnormalities are demonstrated..
[2019-11-26 01:19] LABS: Bilirubin Negative (Negative); Blood, Urine Negative (Negative); Clarity Clear (Clear); Glucose, Urine (Dipstick) Normal (Negative); Ketone, Urine Negative (Negative); Leukocyte Negative Leu/uL (Negative); Nitrite Negative (Negative); Protein, Urine (Dipstick) Negative (Neg-Trace); Specific Gravity, Urine 1.016 (1.002-1.036); pH, Urine 6.5 (5.0-9.0)
[2019-11-26] MEDS: Dextrose 5 % And 0.9 % NaCl 1,000 ML IV SCH ×2 (01:27→15:10)
--- NOTE | 2019-11-26 02:43 | HP ---
PRIMARY CARE PROVIDER: Dr. Ernie Mcclain. CHIEF COMPLAINT: Altered mental status. HISTORY OF PRESENT ILLNESS: This is a 69-year-old female who presents to [facility] Emergency Department with worsening confusion, altered mentation over the last 2 to 3 days. The history is obtained after review of the electronic medical record in the emergency room as well as discussions with the ER attending as the patient is currently encephalopathic and unable to provide any coherent history. The patient with significant history of hepatic cirrhosis as well as recent admission approximately 4 weeks prior to this evaluation for hepatic encephalopathy and elevated ammonia levels, requiring increased dosing of lactulose. The patient was admitted to [facility] from 10/25 through 10/29/2019 for hepatic encephalopathy exacerbation in the context of hepatic cirrhosis. The patient was discharged home, and apparently became altered in the last 48 hours. Emergency room evaluation showed an elevated ammonia level of 194. At which point, the patient did receive lactulose 10 g orally. The patient was referred to the Hospitalist Service for further evaluation. PAST MEDICAL HISTORY: 1. Hepatic cirrhosis. 2. Hepatitis C positive. 3. Valentin esophagitis. 4. Hypertension. 5. Diabetes mellitus, type 2, insulin requiring. 6. History of hepatic encephalopathy. 7. Ulcerative colitis. 8. Anxiety/depression. 9. Tobacco abuse. PAST SURGICAL HISTORY: 1. Status post appendectomy. 2. Status post hysterectomy. 3. Status post right shoulder and right ankle repair. 4. Status post tonsillectomy. 5. Status post polypectomy. 6. Status post ruptured ectopic . CURRENT MEDICATIONS: 1. Lactulose 20 g p.o. q.i.d. 2. Aldactone 50 mg p.o. daily. 3. Lantus insulin 20 units subcutaneously daily. 4. Venlafaxine 150 mg extended-release daily. 5. Omeprazole 40 mg p.o. daily. 6. Remeron 30 mg p.o. at bedtime. 7. Metoprolol succinate extended-release 50 mg p.o. daily. 8. Lisinopril 2.5 mg p.o. daily. 9. Gabapentin 300 mg p.o. b.i.d. 10. Lasix 20 mg p.o. daily. ALLERGIES: LEVEMIR CAUSING RASH. FAMILY HISTORY: Positive for diabetes mellitus. SOCIAL HISTORY: Smokes up to half a pack of cigarettes daily. No alcohol or illicit drug use. REVIEW OF SYSTEMS: Unobtainable due to the patient's altered mental status in the context of hepatic encephalopathy. PHYSICAL EXAMINATION: VITAL SIGNS: Blood pressure 131/96, pulse 72, respiratory rate 18, temperature 98 degrees Fahrenheit, O2 saturation 100% on room air. GENERAL APPEARANCE: This is a 69-year-old female, confused, agitated, flailing extremities on the [facility]. HEENT: Pupils are equal, round, reactive to light and accommodation. Extraocular muscles are intact. Mild scleral icterus. Nares patent. OP is clear. Oral mucosa dry. NECK: Supple. No cervical adenopathy. No thyromegaly. No carotid bruits. No JVD appreciated. Cervical spine with full active and passive range of motion. No meningeal signs noted. CHEST: Lungs are clear to auscultation bilaterally. CARDIOVASCULAR: S1, S2 without noted murmur, rub, or gallop. ABDOMEN: Obese, soft, nontender, and nondistended. Bowel sounds are positive in all 4 quadrants. No palpable mass. No rebound or guarding appreciated. EXTREMITIES: Warm and dry with fair turgor. No clubbing, cyanosis, or asymmetric edema appreciated. Pulses palpable distally at the dorsalis pedis, posterior tibial, and popliteal arteries bilaterally. Capillary refill less than 2 seconds. NEUROLOGIC: Alert and oriented to name. Agitated, flailing extremities randomly. Incoherent speech and garbled words. Does not follow instructions. PERTINENT LABORATORY AND X-RAY FINDINGS: Sodium 128, potassium 5.1, chloride 99, CO2 of 22, BUN 20, creatinine 1.25. Estimated GFR 42, glucose 101, calcium 8.7, magnesium 1.4, total bilirubin 1.4, AST 66, ALT of 35, alkaline phosphatase 137. Serum ammonia level 194. Albumin 3.1. Lipase 72. CBC within normal limits except for platelet count of 84. Portable chest x-ray dated 11/25/2019, showed no acute cardiopulmonary process. CT of the brain without contrast dated 11/25/2019, showed no acute intracranial process. ASSESSMENT AND PLAN: 1. Hepatic encephalopathy. The patient will be admitted to the stroke unit. We will continue lactulose 20 g p.o. q.i.d. and monitor serial ammonia levels. General supportive management. CT of the brain without acute findings. 2. Acute kidney injury on chronic kidney disease. We will hold home diuretic therapy and avoid nephrotoxic agents and limit contrast exposure. Initiate D5 normal saline at 75 mL/h. Serial creatinine monitoring. 3. Hyponatremia. Suspect to worsen due to spironolactone therapy. We will hold spironolactone times 24 to 48 hours and repeat sodium level in the a.m. 4. Hypomagnesemia. We will initiate magnesium sulfate 2 g IV x1 dose now and repeat magnesium level in the a.m. 5. Chronic thrombocytopenia, secondarily to hepatic cirrhosis. Serial monitoring. No evidence of active bleeding. 6. Hepatic cirrhosis, chronic. Continue supportive management. Consult GI Service for any further recommendations. 7. Diabetes mellitus, type 2, insulin requiring. Insulin sliding scale for reflexive coverage. ADA diet when tolerating p.o. intake. Serial Accu-Cheks q.6 hours. 8. Prophylaxis. Sequential compression devices while in bed. Pepcid 20 mg IV b.i.d. 9. Code status, full. Surrogate medical decision maker, not identified. Job ID: [id number]
[2019-11-26] MEDS ORDERED: Lorazepam 2 MG/ML VIAL ONE (04:36)
[2019-11-26] MEDS ORDERED: Lorazepam 2 MG/ML VIAL SLOW IVP PRN (05:11)
[2019-11-26] MEDS ORDERED: hydrALAZINE 20 MG/ML VIAL SLOW IVP PRN (07:14)
[2019-11-26] MEDS ORDERED: Ondansetron PF 4 MG/2 ML Vial IVP PRN (07:14)
[2019-11-26] MEDS ORDERED: Ibuprofen 200 MG TAB PO PRN (07:14)
[2019-11-26] MEDS ORDERED: Ondansetron ODT 4 MG TAB SL PRN (07:14)
[2019-11-26] MEDS ORDERED: Acetaminophen 500 MG TAB PO PRN (07:14)
[2019-11-26] MEDS ORDERED: Dextrose 5% in Water 1,000 ML IV PRN (07:14)
[2019-11-26] MEDS ORDERED: Dextrose 50% Abboject 50 ML SYRINGE SLOW IVP PRN (07:14)
[2019-11-26] MEDS ORDERED: Magnesium 2 GM/50 ML 2 GM in Premix Bag 1 BAG IVPB SCH (07:30)
[2019-11-26] MEDS ORDERED: Magnesium 2 GM/50 ML BAG (IN WATER) ONE (08:15)
[2019-11-26] MEDS ORDERED: Famotidine/PF 20 mg/2ml Vial ONE (08:15)
[2019-11-26] MEDS: Famotidine/PF 20 mg/2ml Vial SLOW IVP SCH ×2 (08:48→20:36)
--- NOTE | 2019-11-26 12:25 | PDOC.HOSPP ---
- Subjective Encounter Date: 11/26/19 Encounter Time: 10:45 Subjective: Patient seen and examined in the emergency room, patient is confused, lethargic , arousable, - Objective Result Diagrams: 11/25/19 22:41 11/25/19 22:24 Radiology Reviewed by me: Yes (All radiological investigations reviewed) EKG Reviewed by me: Yes Hospitalist ROS - Review of Systems ROS unobtainable: due to mental status - Medication Medications: Active Medications Generic Name Dose Route Start Last Admin Trade Name Freq PRN Reason Stop Dose Admin Famotidine 20 mg 11/26/19 09:00 11/26/19 08:48 Pepcid SLOW IVP 20 mg Q12HR GORGE Administration Dextrose/Sodium Chloride 1,000 mls @ 75 mls/hr 11/26/19 01:15 11/26/19 01:27 D5 0.9% Ns IV 1,000 mls .[id number] GORGE Administration Lactulose 20 gm 11/26/19 09:00 11/26/19 08:50 Lactulose PO 20 gm QID GORGE Administration Lorazepam 1 mg 11/26/19 05:11 11/26/19 04:39 Ativan SLOW IVP 1 mg Q6H PRN Administration Anxiety/Agitation Metoprolol Succinate 50 mg 11/26/19 09:00 11/26/19 09:03 Toprol Xl PO 50 mg DAILY GORGE Administration Sodium Chloride 10 ml 11/26/19 09:00 11/26/19 09:03 Flush - Normal Saline IVF 10 ml Q12HR GORGE Administration - Exam General Appearance: NAD, awake alert Eye: PERRL, anicteric sclera ENT: normocephalic atraumatic, dry oral mucosa Neck: supple, symmetric, no JVD Heart: RRR, no murmur, no gallops, no rubs Respiratory: CTAB, no wheezes, no rales, no ronchi Gastrointestinal: soft, non-tender, non-distended, normal bowel sounds Extremities: no cyanosis, no clubbing, 1+ LE edema Skin: normal turgor, no lesions Neurological - other findings: Asterixis noted Musculoskeletal: normal tone, normal strength Psychiatric: normal affect, not oriented Hosp A/P - Plan old records reviewed/req, DVT proph w/SCDs Assessment Hepatic encephalopathy next line acute kidney injury on chronic kidney failure baseline CKD stage II Hyponatremia due to SIADH Hypomagnesemia Chronic thrombocytopenia Cirrhosis of liver with portal hypertension Diabetes type 2 Obesity Plan Continue gentle IV fluids will until patient starts oral intake, currently patient is encephalopathic and not safe for any oral intake will watch for any hypoglycemia given her history of diabetes Continue lactulose Magnesium sulfate has been replaced We will repeat labs tomorrow
[2019-11-26] MEDS ORDERED: D5 1/2 NS w/20 mEq KCL 0 ML ONE (13:08)
[2019-11-26] MEDS ORDERED: Acetaminophen 500 MG TAB ONE (13:45)
[2019-11-26] MEDS: Acetaminophen 500 MG TAB PO PRN (13:53)
[2019-11-26] MEDS: Rifaximin 550 MG TAB PO SCH (20:49)
--- NOTE | 2019-11-26 21:04 | CON ---
DATE OF CONSULTATION: 11/26/2019 REASON FOR CONSULTATION: I was called by the ER at 5 p.m. today for a GI consult on Adrianne Miller. She apparently was admitted yesterday for confusion and hepatic encephalopathy. Ms. Miller is 69-year-old female with long history of cirrhosis secondary to hepatitis C, she has followed with Dr. Valera in office and more recently Dr. Cordell Goldman. Her hepatitis C has been treated and apparently is resolved. She has had issues with thrombocytopenia, esophageal varices, and hepatic encephalopathy. At an admission last March, she had issues with edema. In the past, she had been referred to a transplant center, but stopped followup there. In March, she had an episode of hepatic hydrothorax and diuretic adjustments were made. Since that admission, she was in the hospital in October from the through the and re-presented on 11/24. Her last admission was very similar to this admission that she was brought in by her as she was lethargic and confused. At that time, she was discharged home on: 1. Lactulose 20 q.i.d. 2. Aldactone 50 mg daily. 3. Lantus insulin 20 units daily. 4. Venlafaxine 150 mg at bedtime. 5. Omeprazole 40 mg daily. 6. Remeron 30 mg at bedtime. 7. Metoprolol 50 mg daily. 8. Lisinopril 2.5 mg daily. 9. Gabapentin 300 mg b.i.d. 10. Lasix 20 mg daily. Told by the nurses in the Emergency Room, the family has not been here. They do not have a phone number for family at this time. Apparently, she is a little bit more alert now. She has received 4 doses of lactulose today. She denies any pain. Nurses note no history of fever or signs of bleeding. PAST MEDICAL HISTORY: 1. Cirrhosis, hepatitis C. 2. Hepatitis C status post treatment with sustained viral response. 3. History of Valentin's esophagus. 4. Hypertension. 5. Type 2 diabetes. 6. History of hepatic encephalopathy with most recent admission in October for this. 7. Remote history of ulcerative colitis. 8. History of anxiety and depression. 9. History of tobacco abuse. 10. History of hepatic hydrothorax. PAST SURGICAL HISTORY: Appendectomy, hysterectomy, right shoulder, right ankle repair, tonsillectomy, colonoscopy, polypectomy, ruptured ectopic . ALLERGIES: LEVEMIR CAUSED HER A RASH. PRESENT MEDICATIONS: 1. Tylenol p.r.n. 2. D5 normal saline at 75 an hour. 3. Pepcid. 4. Apresoline p.r.n. 5. Insulin sliding scale. 6. Lactulose 20 q.i.d. 7. Ativan p.r.n. 8. Metoprolol 50 mg daily. 9. Zofran p.r.n. PHYSICAL EXAMINATION: GENERAL: The patient is resting in bed. She does not know what day it is. She knows she is in the hospital. She does not know why she is in the hospital. She denies pain. She denies vomiting blood. VITAL SIGNS: Temperature is 98, pulse 82, blood pressure is 127/68. LUNGS: Clear. HEART: Regular without clicks or murmurs. ABDOMEN: Slightly protuberant. There is some edema in the abdominal wall. EXTREMITIES: No clubbing, cyanosis, or edema. SKIN: Without rashes or lesions. Inguinal area is without hernias. Oropharynx is slightly dry. She has asterixis. LABORATORY DATA: Sodium is 128, . Labs have not been rechecked since then. Her sodium was 136 on 10/26 when she was last year, potassium 5.1, chloride 99, bicarb 22, BUN 20, creatinine 1.25, glucose 136, bilirubin 1.4, magnesium 1.4. AST 66, ALT 35, alkaline phosphatase 137, albumin 3.1, protein 7.4, ammonia is 194. Last AFP was 37 that was on 10/11/2019. Urine on 11/25 was negative. No urine drug screen was performed, just positive for cannabinoids last March. IMAGING: She had a brain CT on 11/24 that was normal. She had a chest x-ray on 11/24 that was normal. She had abdominal MRI on 04/03/2019 that showed cirrhosis and portal hypertension. No evidence of liver masses or lesions. Minimal ascites and splenomegaly. ASSESSMENT: 1. Admission with hepatic encephalopathy. The etiology is unclear. It is unclear if this is related to some mild dehydration. She does not see an overt infection or GI bleeding, most likely medication compliance will be an issue. She did receive some Ativan here last night or early this morning about 7 per the nurses and that may be why she has not coming around that well despite getting a lot of lactulose today and having 6 or 7 bowel movements. 2. Mildly elevated alkaline phosphatase with a normal MRI back in March 2019. 3. Cirrhosis secondary to known hepatitis C, which has been treated. RECOMMENDATIONS: 1. Continue IV fluids. 2. The patient will need a sitter as she is at risk to harm herself or pull IVs out as she is very confused. I have explained this to the charge nurse in the floor where she is being admitted and will put an order in the chart for that. 3. Continue lactulose q.4 hours. 4. Continue IV fluids as she is not eating or drinking right now. 5. Recheck labs in the morning. 6. Add Xifaxan. 7. We will follow along with you. Job ID: [id number]
[2019-11-27 04:20] LABS: INR-International Normal Ratio 1.5; Prothrombin Time 18.2 sec (12.0-14.7)
[2019-11-27 04:21] LABS: #Eosinphils 0.1 thou/uL (0.0-0.7); #Lymphocytes 1.8 thou/uL (1.20-3.40); #Monocytes 0.5 thou/uL (0.11-0.59); #Neutrophils 2.2 thou/uL (1.40-6.50); %Basophils 0.8 % (0.0-1.0); %Eosinophils 3.1 % (0.0-10.0); Hemoglobin 13.1 g/dL (12.0-16.0); Mean Corpuscular HGB CONC 35.3 g/dL (32.0-36.0); Mean Corpuscular Hemoglobin 32.3 pg (27.0-31.0); Mean Corpuscular Volume 91.5 fL (78.0-98.0); Mean Platelet Volume 9.1 fL (7.4-10.4); Platelet Count 65 thou/uL (130-400); RBC Distribution Width 13.7 % (11.5-14.5); Red Blood Cell (RBC) Count 4.07 mill/uL (4.20-5.40); White Blood Cell (WBC) Count 4.6 thou/uL (4.8-10.8)
[2019-11-27 04:39] LABS: ALT (SGPT) 33 U/L (8-55); AST (SGOT) 63 U/L (5-34); Albumin 2.8 g/dL (3.4-4.8); Alkaline Phosphatase 108 U/L (40-110); Anion Gap 10 mmol/L (10-20); BUN (Urea Nitrogen) 15 mg/dL (9.8-20.1); Bilirubin, Total 1.8 mg/dL (0.2-1.2); Calc. Creatinine Clearance 79 mL/min (70-130); Calcium 8.3 mg/dL (7.8-10.44); Carbon Dioxide 19 mmol/L (23-31); Chloride 106 mmol/L (98-107); Estimated GFR-MDRD 57; Globulin 3.8 g/dL (2.4-3.5); Glucose 122 mg/dL (80-115); Magnesium 1.7 mg/dL (1.6-2.6); Phosphorus 3.1 mg/dL (2.3-4.7); Potassium 4.1 mmol/L (3.5-5.1); Protein, Total 6.6 g/dL (6.0-8.3); Sodium 131 mmol/L (136-145)
[2019-11-27] MEDS ORDERED: Prevnar 13-Val Conj/PF 0.5 ML SYRINGE IM ONE (09:00)
[2019-11-27] MEDS: Dextrose 5 % And 0.9 % NaCl 1,000 ML IV SCH (09:17)
[2019-11-27] MEDS: Rifaximin 550 MG TAB PO SCH ×2 (09:17→22:07)
[2019-11-27] MEDS: Famotidine/PF 20 mg/2ml Vial SLOW IVP SCH (09:17)
[2019-11-27] MEDS ORDERED: Cepastat Lozenges 1 LOZ PO PRN (11:40)
[2019-11-27] MEDS ORDERED: Senokot S 8.6-50 MG TAB PO PRN (11:40)
[2019-11-27] MEDS ORDERED: Sodium Chloride 0.65% Nasal 44 ML BOT EA NARE PRN (11:40)
[2019-11-27] MEDS ORDERED: Calcium Carbonate 500 MG ChewTAB PO PRN (11:40)
[2019-11-27] MEDS ORDERED: Diabetic Tussin 200 MG/10 ML UDCUP PO PRN (11:40)
--- NOTE | 2019-11-27 11:51 | PDOC.HOSPP ---
- Subjective Encounter Date: 11/27/19 Encounter Time: 07:00 Subjective: Patient seen and examined bedside today, this morning patient has normal ammonia level, patient wanted to eat food, patient has bedside sitter, patient has a history of fall frequently at home and she is appearing weak, - Objective Vital Signs & Weight: Vital Signs (12 hours) Temp Pulse Resp BP BP Pulse Ox 11/27/19 11:21 97.8 F 68 20 124/79 98 11/27/19 08:00 100 11/27/19 07:18 97.9 F 66 16 134/87 100 11/27/19 03:00 96.2 F L 63 20 135/61 100 Weight Weight 201 lb 4.8 oz I&O: 11/26/19 11/27/19 11/28/19 06:59 06:59 06:59 Intake Total 820 Balance 820 Result Diagrams: 11/27/19 04:02 11/27/19 04:02 Additional Labs: Accuchecks 11/26/19 14:23 POC Glucose 136 H Hospitalist ROS - Review of Systems Constitutional: denies: fever, chills, sweats, weakness, malaise, other ENT: denies: ear pain, ear discharge, nose pain, nose discharge, nose congestion , mouth pain, mouth swelling, throat pain, throat swelling, other Respiratory: denies: cough, dry, shortness of breath, hemoptysis, SOB with excertion, pleuritic pain, sputum, wheezing, other Cardiovascular: denies: chest pain, palpitations, orthopnea, paroxysmal noc. dyspnea, edema, light headedness, other Gastrointestinal: denies: nausea, vomiting, abdominal pain, diarrhea, constipation, melena, hematochezia, other Genitourinary: denies: dysuria, frequency, incontinence, hematuria, retention, other Musculoskeletal: denies: neck pain, shoulder pain, arm pain, back pain, hand pain, leg pain, foot pain, other Skin: denies: rash, lesions, ming, bruising, other - Medication Medications: Active Medications Generic Name Dose Route Start Last Admin Trade Name Freq PRN Reason Stop Dose Admin Acetaminophen 500 mg 11/26/19 12:23 11/26/19 13:53 Tylenol PO 500 mg Q6H PRN Administration Mild Pain (1-3) Lactulose 20 gm 11/26/19 09:00 11/27/19 09:17 Lactulose PO 20 gm QID GORGE Administration Metoprolol Succinate 50 mg 11/26/19 09:00 11/27/19 09:17 Toprol Xl PO 50 mg DAILY GORGE Administration Rifaximin 550 mg 11/26/19 21:00 11/27/19 09:17 Xifaxan PO 550 mg BID GORGE Administration Sodium Chloride 10 ml 11/26/19 09:00 11/27/19 09:17 Flush - Normal Saline IVF 10 ml Q12HR GORGE Administration - Exam General Appearance: NAD, awake alert Eye: PERRL, anicteric sclera ENT: normocephalic atraumatic, no oropharyngeal lesions Neck: supple, symmetric, no JVD, no thyromegaly Heart: RRR, no murmur, no gallops, no rubs Respiratory: CTAB, no wheezes, no rales, no ronchi Gastrointestinal: soft, non-tender, non-distended, normal bowel sounds Gastrointestinal - other findings: Obesity noted Extremities: no cyanosis, no clubbing, no edema Skin: normal turgor, no lesions Neurological: no focal deficits Musculoskeletal: normal tone, normal strength Psychiatric: normal affect, normal behavior Hosp A/P - Plan old records reviewed/req, PT/OT, social media project manager Assessment Hepatic encephalopathy, improved Acute kidney injury on chronic kidney failure baseline CKD stage II, improved Hyponatremia due to SIADH Hypomagnesemia, corrected Chronic thrombocytopenia Cirrhosis of liver with portal hypertension Diabetes type 2 Obesity with a BMI 31 Plan Today we will discontinue IV fluid, will start 1800 kcal diabetic diet As patient has frequent episode of fall and generalized weakness and the patient 's is concerned about and thus I will initiate PT OT and consult pillowcase cleaner for discharge planning Continue lactulose Medication reviewed and continue provide symptomatic and supportive care
--- NOTE | 2019-11-27 19:16 | PRG ---
DATE OF SERVICE: 11/27/2019 REASON FOR CONSULTATION: Cirrhosis with hepatic encephalopathy. SUBJECTIVE: Today, the patient seems more awake and alert when compared to on admission, although the patient does continue to have altered mental status, only being able to identify her location and her name (unable to state the current date or situation). It seems, at one point, the patient attempted to walk away from the as well, but was redirected per nursing staff and her sitter. Per nursing staff, the patient has had approximately 3 to 4 semi-solid bowel movements over the course of the day today with no evidence of hematochezia or melena. Otherwise, she states that she is doing well with no episodes of nausea, vomiting, fevers, chills, hematemesis, dysphagia, or odynophagia. OBJECTIVE: VITAL SIGNS: Temperature 99.1, pulse 70, blood pressure 122/59, respiratory rate 20, saturating 100% on room air. GENERAL: The patient was sitting at bedside, in no acute distress. Alert and oriented x2. CARDIOVASCULAR: Regular rate and rhythm. RESPIRATORY: Clear to auscultation bilaterally. ABDOMEN: Normoactive bowel sounds. Soft, nontender, and nondistended. EXTREMITIES: No cyanosis, clubbing, or edema. LABORATORY DATA: CBC with a white blood cell count of 4.6, hemoglobin 13.1, hematocrit 37.2, platelets 65. INR 1.5. Chemistry with a sodium of 131, potassium 4.1, chloride 106, CO2 of 19, BUN 15, creatinine 0.96, glucose 122, AST 63, ALT 33, alkaline phosphatase 108, total bilirubin 1.8. MELD-sodium is calculated at 19. IMAGING DATA: No current GI imaging is available for review. ASSESSMENT AND PLAN: The patient is a 69-year-old female with past medical history of hypertension, diabetes, anxiety, depression, tobacco abuse, Valentin esophagus, and hepatitis C, status post treatment and cirrhosis complicated by esophageal varices and hepatic encephalopathy, presenting with altered mental status consistent with hepatic encephalopathy. Hepatic encephalopathy: The patient is presenting with a progressively worsening of her mental status over the last few weeks per my most recent conversation with her and her . The patient had been able to consume adequate amounts of lactulose as an outpatient, but more recently had been having less bowel movements for evacuation of ammonia. Recommendations were made as an outpatient to start rifaximin, but the patient was unable to afford the medication, and we were in the process of obtaining authorization as to be placed on a Medication Assistance Program for the rifaximin. In the meantime, the patient was admitted to the hospital for worsening mental status and lethargy, but seems to be responding well to administration of lactulose here in the hospital with approximately 3 to 4 semi-solid bowel movements today. At the current time, she is only alert and oriented x2, but again seems to be responding to lactulose and rifaximin administration. Recommendations: 1. We would continue lactulose 20 g 4 times daily with a goal to have approximately 3 to 4 bowel movements every day. 2. Continue with rifaximin 550 mg b.i.d., as part of adjunctive therapy for hepatic encephalopathy. 3. Continue to monitor the patient clinically for resolution of her hepatic encephalopathy (serum ammonia is a poor indicator for response to therapy). 4. We would avoid any benzodiazepines or sleep agents during this hospitalization as it can contribute to altered mental status. Cirrhosis: The patient is presenting with a prior history of chronic hepatitis C that was ultimately treated with SVR achieved, but did have resultant cirrhosis of the liver. Currently, the patient is presenting with decompensated disease as evidenced by the presence of worsening hepatic encephalopathy and history of esophageal varices in the past. Currently, with a Child-Miranda classification B/C and a calculated MELD-sodium score of approximately 19. Recommendations: 1. We would continue with the above treatment for hepatic encephalopathy. 2. We would have the patient follow up in the GI Clinic within 2 to 3 weeks of discharge. 3. With her elevated MELD score of 19, the patient is potentially a candidate for liver transplantation and had been followed as an outpatient by a transplant service. She will need to be re-established with the transplant service, but again done as an outpatient. We will continue to follow. Please call with any questions. Job ID: [id number]
[2019-11-27] MEDS: HumaLOG 300 UNITS/3 ML VIAL SC PRN (22:26)
[2019-11-28] MEDS ORDERED: Sterile Water 10 ML VIAL FS PRN (02:25)
[2019-11-28] MEDS ORDERED: Ziprasidone 20 MG VIAL IM SCH (02:30)
[2019-11-28] MEDS: HumaLOG 300 UNITS/3 ML VIAL SC PRN ×4 (06:26→21:20)
[2019-11-28] MEDS: Rifaximin 550 MG TAB PO SCH ×2 (09:59→21:19)
--- NOTE | 2019-11-28 13:57 | PRG ---
DATE OF SERVICE: 11/28/2019 SUBJECTIVE: The patient is awake, but still a bit loony and confused. She is having multiple bowel movements. She tolerated regular diet. There is no nausea or vomiting. She denies having any abdominal pain. PHYSICAL EXAMINATION: VITAL SIGNS: Temperature 98.5, blood pressure 136/60, pulse of 78. GENERAL: She is alert, but still not fully oriented. HEENT: Shows anicteric sclerae. Oropharynx is clear and moist. CV: Normal S1 and S2. Regular rate and rhythm. CHEST: Breath sounds. Clear to auscultation. ABDOMEN: Protuberant, but soft and nontender. No tympany. No distention. She has active bowel sounds. EXTREMITIES: No edema. LABORATORY DATA: Serum ammonia is 51. ASSESSMENT: 1. Hepatic encephalopathy, resolving nicely. Currently having excessive bowel movements with lactulose. The patient is also on Xifaxan. 2. Cirrhosis from previous hepatitis C. 3. History of hepatitis C, status post eradication. RECOMMENDATIONS: 1. We will decrease lactulose to 20 g p.o. t.i.d. 2. Continue Rifaximin 550 mg p.o. b.i.d. 3. Anticipate discharge by tomorrow with current trajectory of improvement. Job ID: [id number]
--- NOTE | 2019-11-28 17:05 | PDOC.HOSPP ---
- Subjective Encounter Date: 11/28/19 Subjective: Confused. No specific complaints. - Objective Vital Signs & Weight: Vital Signs (12 hours) Temp Pulse Pulse Pulse Resp BP BP 11/28/19 15:26 98.2 F 78 20 11/28/19 12:37 78 19 11/28/19 11:05 78 78 142/80 H 136/60 11/28/19 09:51 87 85 124/59 L 160/110 H 11/28/19 08:00 11/28/19 07:00 98.5 F 79 19 BP Pulse Ox 11/28/19 15:26 136/66 97 11/28/19 12:37 136/60 98 11/28/19 11:05 11/28/19 09:51 11/28/19 08:00 98 11/28/19 07:00 117/51 L 98 Weight Weight 202 lb I&O: 11/27/19 11/28/19 11/29/19 06:59 06:59 06:59 Intake Total 820 Balance 820 Result Diagrams: 11/27/19 04:02 11/27/19 04:02 Hospitalist ROS - Medication Medications: Active Medications Generic Name Dose Route Start Last Admin Trade Name Freq PRN Reason Stop Dose Admin Acetaminophen 500 mg 11/26/19 12:23 11/26/19 13:53 Tylenol PO 500 mg Q6H PRN Administration Mild Pain (1-3) Insulin Human Lispro 0 units 11/26/19 07:14 11/28/19 12:54 Humalog SC 2 unit .MILD SLIDING SCALE PRN Administration Mild Correctional Scale Insulin Human Lispro 0 units 11/26/19 07:14 11/27/19 22:26 Humalog SC 2 unit .BEDTIME SLIDING SC PRN Administration Bedtime Correctional Scale Lactulose 20 gm 11/28/19 15:00 11/28/19 14:11 Lactulose PO Not Given TID GORGE Metoprolol Succinate 50 mg 11/26/19 09:00 11/28/19 09:59 Toprol Xl PO 50 mg DAILY GORGE Administration Pantoprazole Sodium 40 mg 11/28/19 09:00 11/28/19 09:59 Protonix PO 40 mg DAILY GORGE Administration Rifaximin 550 mg 11/26/19 21:00 11/28/19 09:59 Xifaxan PO 550 mg BID GORGE Administration Sodium Chloride 10 ml 11/26/19 09:00 11/28/19 09:59 Flush - Normal Saline IVF 10 ml Q12HR GORGE Administration - Exam General Appearance: NAD, awake alert Heart: RRR, no murmur, no gallops, no rubs, normal peripheral pulses Respiratory: CTAB, no wheezes, no rales, no ronchi, normal chest expansion, no tachypnea, normal percussion Gastrointestinal: soft, non-tender, non-distended, normal bowel sounds, no palpable masses, no hepatomegaly, no splenomegaly, no bruit Extremities: no cyanosis, no clubbing, no edema Neurological: no focal deficits Psychiatric: not oriented Hosp A/P (1) Hepatic encephalopathy Code(s): K72.90 - HEPATIC FAILURE, UNSPECIFIED WITHOUT COMA Status: Acute (2) DM type 2 (diabetes mellitus, type 2) Status: Chronic Qualifiers: Diabetes mellitus [facility] insulin use: with intermediate project manager use Diabetes mellitus complication status: without complication Qualified Code(s): E11.9 - Type 2 diabetes mellitus without complications; Z79.4 - intermediate designer (current) use of insulin (3) Hypertension Code(s): I10 - ESSENTIAL (PRIMARY) HYPERTENSION Status: Chronic (4) Liver cirrhosis Code(s): K74.60 - UNSPECIFIED CIRRHOSIS OF LIVER Status: Chronic (5) Thrombocytopenia Code(s): D69.6 - THROMBOCYTOPENIA, UNSPECIFIED Status: Chronic - Plan Hepatic encephalopathy: GI following. Continue lactulose at the lower dose. Still appears to have some encephalopathy. Blood pressure and glucose doing well.
[2019-11-29] MEDS ORDERED: Sterile Water 10 ML VIAL FS PRN (00:54)
[2019-11-29] MEDS ORDERED: Ziprasidone 20 MG VIAL IM SCH (01:00)
[2019-11-29] MEDS: HumaLOG 300 UNITS/3 ML VIAL SC PRN ×4 (06:29→21:14)
[2019-11-29] MEDS: Rifaximin 550 MG TAB PO SCH ×2 (09:11→20:41)
--- NOTE | 2019-11-29 15:37 | PDOC.HOSPP ---
- Subjective Encounter Date: 11/29/19 Subjective: Patient had some mild agitation and required some Seroquel. She has been fairly sleepy throughout the day today. She did get up and ambulate with physical therapy about 120 feet. She had minimal assist. - Objective Vital Signs & Weight: Vital Signs (12 hours) Temp Pulse Pulse Pulse Resp BP BP 11/29/19 11:25 98.5 F 81 18 11/29/19 09:05 11/29/19 08:30 91 89 134/75 133/75 11/29/19 07:45 97.7 F 91 20 11/29/19 04:00 98.3 F 70 18 BP BP Pulse Ox 11/29/19 11:25 128/58 L 98 11/29/19 09:05 99 11/29/19 08:30 11/29/19 07:45 146/81 H 99 11/29/19 04:00 161/72 H 95 Weight Weight 187 lb 8 oz I&O: 11/28/19 11/29/19 11/30/19 06:59 06:59 06:59 Intake Total 350 340 Balance 350 340 Result Diagrams: 11/27/19 04:02 11/27/19 04:02 Additional Labs: Accuchecks 11/29/19 11/29/19 11/28/19 10:48 05:47 20:48 POC Glucose 274 H 217 H 273 H 11/28/19 11/28/19 11/28/19 16:51 10:46 05:42 POC Glucose 203 H 191 H 258 H 11/27/19 11/27/19 11/27/19 21:09 18:19 05:35 POC Glucose 208 H 186 H 132 H Hospitalist ROS - Medication Medications: Active Medications Generic Name Dose Route Start Last Admin Trade Name Freq PRN Reason Stop Dose Admin Acetaminophen 500 mg 11/26/19 12:23 11/26/19 13:53 Tylenol PO 500 mg Q6H PRN Administration Mild Pain (1-3) Insulin Human Lispro 0 units 11/26/19 07:14 11/29/19 11:09 Humalog SC 4 unit .MILD SLIDING SCALE PRN Administration Mild Correctional Scale Insulin Human Lispro 0 units 11/26/19 07:14 11/28/19 21:20 Humalog SC 3 unit .BEDTIME SLIDING SC PRN Administration Bedtime Correctional Scale Lactulose 20 gm 11/28/19 15:00 11/29/19 14:26 Lactulose PO 20 gm TID GORGE Administration Metoprolol Succinate 50 mg 11/26/19 09:00 11/29/19 09:11 Toprol Xl PO 50 mg DAILY GORGE Administration Pantoprazole Sodium 40 mg 11/28/19 09:00 11/29/19 09:11 Protonix PO 40 mg DAILY GORGE Administration Rifaximin 550 mg 11/26/19 21:00 11/29/19 09:11 Xifaxan PO 550 mg BID GORGE Administration Sodium Chloride 10 ml 11/26/19 09:00 11/29/19 09:11 Flush - Normal Saline IVF 10 ml Q12HR GORGE Administration - Exam General Appearance: NAD General - other findings: Still sleepy. She will awaken briefly and then falls right back asleep. Heart: RRR, no murmur, no gallops, no rubs, normal peripheral pulses Respiratory: CTAB, no wheezes, no rales, no ronchi, normal chest expansion, no tachypnea, normal percussion Gastrointestinal: soft, non-tender, non-distended, normal bowel sounds, no palpable masses, no hepatomegaly, no splenomegaly, no bruit Extremities: no cyanosis, no clubbing, no edema Skin: normal turgor Neurological: no new deficit Psychiatric: not oriented Hosp A/P (1) Hepatic encephalopathy Code(s): K72.90 - HEPATIC FAILURE, UNSPECIFIED WITHOUT COMA Status: Acute (2) DM type 2 (diabetes mellitus, type 2) Status: Chronic Qualifiers: Diabetes mellitus termite control technician insulin use: with custodial use Diabetes mellitus complication status: without complication Qualified Code(s): E11.9 - Type 2 diabetes mellitus without complications; Z79.4 - intermodal truck driver (current) use of insulin (3) Hypertension Code(s): I10 - ESSENTIAL (PRIMARY) HYPERTENSION Status: Chronic (4) Liver cirrhosis Code(s): K74.60 - UNSPECIFIED CIRRHOSIS OF LIVER Status: Chronic (5) Thrombocytopenia Code(s): D69.6 - THROMBOCYTOPENIA, UNSPECIFIED Status: Chronic - Plan Hepatic encephalopathy: GI following. Continue lactulose at the lower dose. Still appears to have some encephalopathy. It is unclear to me that her encephalopathy at this time is purely related to hyperammonemia. I believe she is feeling the consequences of some medication presently. However she seems to be more confused than somnolent which in my opinion is not consistent with hepatic encephalopathy. She seems to be relatively functional at this time. We will try to investigate her home situation and find out what her baseline is. Hypertension: Blood pressure well controlled. Diabetes mellitus: Glucose doing well.
--- NOTE | 2019-11-29 18:42 | PRG ---
DATE OF SERVICE: 11/29/2019 SUBJECTIVE: Ms. Miller was a little more awake and then more sleepy today. She apparently got some Geodon last night as a one-time dose as there was no sitter. OBJECTIVE: VITAL SIGNS: Temperature is 98, pulse 82, blood pressure 109/54. GENERAL: She is alert and oriented. She is talking. LUNGS: Clear. HEART: Regular with no clicks or murmurs. ABDOMEN: Soft, slightly protuberant. She is mildly icteric. EXTREMITIES: Trace edema. LABORATORY DATA: None today. ASSESSMENT: Hepatic encephalopathy, worsened by Ativan, had an evaluation in the emergency room, then Geodon last night. Recommend continuing Xifaxan and lactulose and avoiding all sedatives. Recheck labs tomorrow. Job ID: [id number]
[2019-11-29] MEDS: Acetaminophen 500 MG TAB PO PRN (20:54)
[2019-11-30 05:07] LABS: #Basophils 0.1 thou/uL (0.0-0.2); #Eosinphils 0.2 thou/uL (0.0-0.7); #Lymphocytes 2.9 thou/uL (1.20-3.40); #Monocytes 0.8 thou/uL (0.11-0.59); #Neutrophils 3.9 thou/uL (1.40-6.50); %Basophils 0.7 % (0.0-1.0); %Eosinophils 2.3 % (0.0-10.0); %Lymphocytes 37.1 % (21.0-51.0); %Monocytes 10.3 % (0.0-10.0); %Neutrophils 49.6 % (42.0-75.0); Hemoglobin 13.4 g/dL (12.0-16.0); Mean Corpuscular HGB CONC 33.3 g/dL (32.0-36.0); Mean Corpuscular Hemoglobin 30.6 pg (27.0-31.0); Mean Corpuscular Volume 91.8 fL (78.0-98.0); Mean Platelet Volume 8.6 fL (7.4-10.4); Platelet Count 91 thou/uL (130-400); RBC Distribution Width 13.9 % (11.5-14.5); Red Blood Cell (RBC) Count 4.38 mill/uL (4.20-5.40); White Blood Cell (WBC) Count 7.9 thou/uL (4.8-10.8)
[2019-11-30 05:09] VITALS: BMI 29.8
[2019-11-30 05:24] LABS: ALT (SGPT) 41 U/L (8-55); AST (SGOT) 59 U/L (5-34); Alkaline Phosphatase 138 U/L (40-110); Anion Gap 12 mmol/L (10-20); BUN (Urea Nitrogen) 15 mg/dL (9.8-20.1); Bilirubin, Total 1.5 mg/dL (0.2-1.2); Calc. Creatinine Clearance 59 mL/min (70-130); Calcium 9.1 mg/dL (7.8-10.44); Carbon Dioxide 21 mmol/L (23-31); Chloride 107 mmol/L (98-107); Estimated GFR-MDRD 44; Globulin 4.1 g/dL (2.4-3.5); Glucose 177 mg/dL (80-115); Potassium 4.5 mmol/L (3.5-5.1); Protein, Total 7.1 g/dL (6.0-8.3); Sodium 135 mmol/L (136-145)
[2019-11-30] MEDS: HumaLOG 300 UNITS/3 ML VIAL SC PRN ×4 (06:19→23:32)
[2019-11-30] MEDS: Rifaximin 550 MG TAB PO SCH ×2 (09:46→23:32)
--- NOTE | 2019-11-30 14:28 | PDOC.HOSPP ---
- Subjective Encounter Date: 11/30/19 Subjective: Substantially better today. Denies any complaints. Says she feels quite well. She is eager to go home. - Objective Vital Signs & Weight: Vital Signs (12 hours) Temp Pulse Resp BP Pulse Ox 11/30/19 11:43 97.8 F 72 16 139/65 97 11/30/19 07:43 98.1 F 72 16 123/62 98 11/30/19 03:58 97.9 F 70 20 120/58 L 96 Weight Weight 190 lb 8 oz I&O: 11/29/19 11/30/19 12/01/19 06:59 06:59 06:59 Intake Total 350 580 716 Balance 350 580 716 Result Diagrams: 11/30/19 04:31 11/30/19 04:31 Additional Labs: Accuchecks 11/30/19 11/30/19 11/29/19 10:55 06:07 20:38 POC Glucose 285 H 179 H 317 H 11/29/19 11/28/19 11/28/19 16:50 16:51 10:46 POC Glucose 376 H 203 H 191 H 11/28/19 05:42 POC Glucose 258 H Hospitalist ROS - Medication Medications: Active Medications Generic Name Dose Route Start Last Admin Trade Name Freq PRN Reason Stop Dose Admin Acetaminophen 500 mg 11/26/19 12:23 11/29/19 20:54 Tylenol PO 500 mg Q6H PRN Administration Mild Pain (1-3) Insulin Human Lispro 0 units 11/26/19 07:14 11/30/19 11:57 Humalog SC 4 unit .MILD SLIDING SCALE PRN Administration Mild Correctional Scale Insulin Human Lispro 0 units 11/26/19 07:14 11/29/19 21:14 Humalog SC 4 unit .BEDTIME SLIDING SC PRN Administration Bedtime Correctional Scale Lactulose 20 gm 11/28/19 15:00 11/30/19 09:46 Lactulose PO 20 gm TID GORGE Administration Metoprolol Succinate 50 mg 11/26/19 09:00 11/30/19 09:46 Toprol Xl PO 50 mg DAILY GORGE Administration Pantoprazole Sodium 40 mg 11/28/19 09:00 11/30/19 09:46 Protonix PO 40 mg DAILY GORGE Administration Rifaximin 550 mg 11/26/19 21:00 11/30/19 09:46 Xifaxan PO 550 mg BID GORGE Administration Sodium Chloride 10 ml 11/26/19 09:00 11/30/19 09:50 Flush - Normal Saline IVF Not Given Q12HR GORGE - Exam General Appearance: NAD, awake alert Heart: RRR, no murmur, no gallops, no rubs, normal peripheral pulses Respiratory: CTAB, no wheezes, no rales, no ronchi, normal chest expansion, no tachypnea, normal percussion Gastrointestinal: soft, non-tender, non-distended, normal bowel sounds, no palpable masses, no hepatomegaly, no splenomegaly, no bruit Extremities: no cyanosis, no clubbing, no edema Skin: normal turgor Musculoskeletal: normal tone Psychiatric: normal affect, not oriented Hosp A/P (1) Hepatic encephalopathy Code(s): K72.90 - HEPATIC FAILURE, UNSPECIFIED WITHOUT COMA Status: Acute (2) DM type 2 (diabetes mellitus, type 2) Status: Chronic Qualifiers: Diabetes mellitus shelter insulin use: with termination clerk use Diabetes mellitus complication status: without complication Qualified Code(s): E11.9 - Type 2 diabetes mellitus without complications; Z79.4 - termination clerk (current) use of insulin (3) Hypertension Code(s): I10 - ESSENTIAL (PRIMARY) HYPERTENSION Status: Chronic (4) Liver cirrhosis Code(s): K74.60 - UNSPECIFIED CIRRHOSIS OF LIVER Status: Chronic (5) Thrombocytopenia Code(s): D69.6 - THROMBOCYTOPENIA, UNSPECIFIED Status: Chronic (6) Hepatitis C Code(s): B19.20 - UNSPECIFIED VIRAL HEPATITIS C WITHOUT HEPATIC COMA Status: Acute (7) History of ulcerative colitis Code(s): Z87.19 - PERSONAL HISTORY OF OTHER DISEASES OF THE DIGESTIVE SYSTEM Status: Acute (8) Anxiety and depression Code(s): F41.9 - ANXIETY DISORDER, UNSPECIFIED; F32.9 - MAJOR DEPRESSIVE DISORDER, SINGLE EPISODE, UNSPECIFIED Status: Acute - Plan Hepatic encephalopathy: GI following. Continue lactulose. Encephalopathy appears to be significantly improved. She appears to possibly have some underlying dementia. Difficult to assess that at this time. She is certainly better than she was for the last couple of days. Hypertension: Blood pressure well controlled. Diabetes mellitus: Glucose doing well. Anxiety and depression: Resuming her Remeron and venlafaxine. Disposition: Suspect the patient is close to her baseline with regards to her mental status. Nursing was able to speak with the patient's family yesterday. Her and daughter will be meeting today to discuss taking the patient home. They have been made aware that currently the patient will require 24-hour monitoring. If they are capable of providing that that I believe the patient would be stable for discharge.
[2019-11-30] MEDS ORDERED: Venlafaxine HCl XR 150 MG CAP PO SCH (14:30)
--- NOTE | 2019-11-30 16:01 | PRG ---
DATE OF SERVICE: 11/30/2019 SUBJECTIVE: Ms. Miller is without complaints. The sitter with her notes that she has been awake all day and has not been difficult to arouse. Ms. Miller though when asked about her medicines at home, does not really in the way of much of an understanding of her condition and she does not understand what happened to her or really even know that she became very encephalopathic. Ultimately, I told her that the caregiver and nurses are working on placement, she said she was okay with that, but I am not sure she understands what that is. OBJECTIVE: VITAL SIGNS: Pulse 72, temperature is 97, blood pressure is 139/65. GENERAL: She is resting comfortably in bed. She is pleasant. HEENT: She is nonicteric. LUNGS: Clear. HEART: Regular rhythm. ABDOMEN: Soft and nontender. There is no palpable hepatosplenomegaly. LABORATORY DATA: White count 7.8, hemoglobin is 13, platelet count 91,000. Sodium 135, potassium 4.5, BUN and creatinine are 15 and 1.2. Bilirubin 1.5, AST 59, ALT 41, alkaline phosphatase 139. Ammonia was not rechecked. ASSESSMENT: 1. Hepatic encephalopathy, severe, some of this is related to probably noncompliance, some of this is just severe encephalopathy. Does not seem she is taking any kind of sedative medications at home. The Remeron may be contributing and that should be stopped. We will go ahead and stop that here as well as she has been getting it in the hospital. 2. Cirrhosis and previous hepatitis C, treated. 3. hepatoma screening. RECOMMENDATION: 1. Avoid sedatives. Avoid sleep aids. Continue lactulose and Xifaxan. 2. I think placement is probably a good idea at this time as she has repetitive encephalopathy and it is not clear if she got any kind of care structure at home to continue her regular medications. Alternatively, the hospitalists do note that they are considering 24-hour monitoring at home with 24-hour care and I guess that will be reasonable as well with strict instructions of no sleep aids. Job ID: [id number]
[2019-11-30] MEDS ORDERED: Mirtazapine 15 MG TAB PO SCH (21:00)
[2019-11-30] MEDS: Gabapentin 300 MG CAP PO SCH (23:32)
[2019-12-01] MEDS: HumaLOG 300 UNITS/3 ML VIAL SC PRN ×4 (07:07→20:40)
[2019-12-01] MEDS: Spironolactone 25 MG TAB PO SCH (09:13)
[2019-12-01] MEDS: Gabapentin 300 MG CAP PO SCH ×2 (09:13→20:36)
[2019-12-01] MEDS: Venlafaxine HCl XR 150 MG CAP PO SCH (09:13)
[2019-12-01] MEDS: Rifaximin 550 MG TAB PO SCH ×2 (09:13→20:37)
[2019-12-01] MEDS: Furosemide 20 MG TAB PO SCH (09:13)
[2019-12-01 11:02] LABS: ALT (SGPT) 31 U/L (8-55); AST (SGOT) 44 U/L (5-34); Albumin 2.8 g/dL (3.4-4.8); Alkaline Phosphatase 123 U/L (40-110); Anion Gap 11 mmol/L (10-20); BUN (Urea Nitrogen) 21 mg/dL (9.8-20.1); Bilirubin, Total 1.5 mg/dL (0.2-1.2); Calc. Creatinine Clearance 47 mL/min (70-130); Calcium 8.9 mg/dL (7.8-10.44); Carbon Dioxide 22 mmol/L (23-31); Chloride 106 mmol/L (98-107); Estimated GFR-MDRD 34; Globulin 3.8 g/dL (2.4-3.5); Glucose 264 mg/dL (80-115); Potassium 4.7 mmol/L (3.5-5.1); Protein, Total 6.6 g/dL (6.0-8.3); Sodium 134 mmol/L (136-145)
--- NOTE | 2019-12-01 19:08 | PDOC.HOSPP ---
- Subjective Encounter Date: 12/01/19 Encounter Time: 09:00 Subjective: The patient is doing well. She reports abundant amounts of bowel movements. No abdominal pain, nausea or vomiting. Patient was d/c however unable to find a ride home - Objective Vital Signs & Weight: Vital Signs (12 hours) Temp Pulse Resp BP Pulse Ox 12/01/19 15:00 97.4 F L 65 16 149/67 H 97 12/01/19 11:00 97.9 F 89 16 130/63 93 L 12/01/19 07:56 98.6 F 70 16 122/58 L 97 Weight Weight 200 lb 6.4 oz I&O: 11/30/19 12/01/19 12/02/19 06:59 06:59 06:59 Intake Total 580 1316 600 Balance 580 1316 600 Result Diagrams: 11/30/19 04:31 12/01/19 10:34 Additional Labs: Accuchecks 12/01/19 12/01/19 12/01/19 16:39 11:03 06:20 POC Glucose 270 H 254 H 202 H 11/30/19 23:35 POC Glucose 257 H Hospitalist ROS - Review of Systems Constitutional: denies: fever, chills - Medication Medications: Active Medications Generic Name Dose Route Start Last Admin Trade Name Freq PRN Reason Stop Dose Admin Acetaminophen 500 mg 11/26/19 12:23 11/29/19 20:54 Tylenol PO 500 mg Q6H PRN Administration Mild Pain (1-3) Furosemide 20 mg 12/01/19 09:00 12/01/19 09:13 Lasix PO 20 mg DAILY GORGE Administration Gabapentin 300 mg 11/30/19 21:00 12/01/19 09:13 Neurontin PO 300 mg BID GORGE Administration Insulin Human Lispro 0 units 11/26/19 07:14 12/01/19 17:36 Humalog SC 4 unit .MILD SLIDING SCALE PRN Administration Mild Correctional Scale Insulin Human Lispro 0 units 11/26/19 07:14 11/30/19 23:32 Humalog SC 3 unit .BEDTIME SLIDING SC PRN Administration Bedtime Correctional Scale Lactulose 20 gm 11/28/19 15:00 12/01/19 17:36 Lactulose PO 20 gm TID GORGE Administration Metoprolol Succinate 50 mg 11/26/19 09:00 12/01/19 09:13 Toprol Xl PO 50 mg DAILY GORGE Administration Pantoprazole Sodium 40 mg 11/28/19 09:00 12/01/19 09:13 Protonix PO 40 mg DAILY GORGE Administration Rifaximin 550 mg 11/26/19 21:00 12/01/19 09:13 Xifaxan PO 550 mg BID GORGE Administration Sodium Chloride 10 ml 11/26/19 09:00 12/01/19 09:14 Flush - Normal Saline IVF Not Given Q12HR GORGE Spironolactone 50 mg 12/01/19 09:00 12/01/19 09:13 Aldactone PO 50 mg DAILY GORGE Administration Venlafaxine HCl 150 mg 12/01/19 09:00 12/01/19 09:13 Effexor Xr PO 150 mg DAILY GORGE Administration - Exam General Appearance: NAD, awake alert Eye: PERRL, anicteric sclera ENT: normocephalic atraumatic, no oropharyngeal lesions Neck: no JVD Heart: RRR, no murmur, no gallops, no rubs Respiratory: CTAB, no wheezes, no rales, no ronchi Gastrointestinal: soft Gastrointestinal - other findings: mildly distended Extremities: no cyanosis, no clubbing, 1+ LE edema Skin: normal turgor, no lesions, no rashes Hosp A/P - Plan This is a 69 year old female who presented with hepatic encephalopathy Hepatic encephalopathy - appears to have resolved. Ammonia has normalized - continue lactulose and rifaximin Cirrhosis - stable, spironolactone and lasix resumed today - repeat Bmp tomorrow CKD stage III - creatinine around 1-1.3 at baseline, Today it is 1.5 - resumed diuretics, repeat BMP tomorrow Transaminitis - LFT downtrending, continue to monitor DVT prophylaxis: heparin SC Dispo: d/c tomorrow if creatinine stable Code status: full code
[2019-12-01] MEDS: Heparin 5,000 UNITS/ML VIAL SC SCH (20:40)
[2019-12-02 05:29] LABS: Hemoglobin 13.4 g/dL (12.0-16.0); Mean Corpuscular HGB CONC 33.5 g/dL (32.0-36.0); Mean Corpuscular Hemoglobin 30.7 pg (27.0-31.0); Mean Corpuscular Volume 91.7 fL (78.0-98.0); Mean Platelet Volume 8.9 fL (7.4-10.4); Platelet Count 68 thou/uL (130-400); Red Blood Cell (RBC) Count 4.36 mill/uL (4.20-5.40); White Blood Cell (WBC) Count 4.2 thou/uL (4.8-10.8)
[2019-12-02 05:43] LABS: Anion Gap 11 mmol/L (10-20); BUN (Urea Nitrogen) 22 mg/dL (9.8-20.1); Calc. Creatinine Clearance 55 mL/min (70-130); Calcium 8.9 mg/dL (7.8-10.44); Carbon Dioxide 19 mmol/L (23-31); Chloride 107 mmol/L (98-107); Estimated GFR-MDRD 39; Glucose 186 mg/dL (80-115); Potassium 4.6 mmol/L (3.5-5.1); Sodium 132 mmol/L (136-145)
[2019-12-02] MEDS: HumaLOG 300 UNITS/3 ML VIAL SC PRN ×2 (06:21→11:27)
[2019-12-02 07:36] VITALS: BP 142/68; TEMP 97.9
[2019-12-02] MEDS: Heparin 5,000 UNITS/ML VIAL SC SCH (08:19)
[2019-12-02] MEDS: Furosemide 20 MG TAB PO SCH (08:22)
[2019-12-02] MEDS: Spironolactone 25 MG TAB PO SCH (08:22)
[2019-12-02] MEDS: Venlafaxine HCl XR 150 MG CAP PO SCH (08:22)
[2019-12-02] MEDS: Gabapentin 300 MG CAP PO SCH (08:23)
[2019-12-02] MEDS: Rifaximin 550 MG TAB PO SCH (08:30)
--- NOTE | 2019-12-02 09:07 | PDOC.HOSPP ---
- Subjective Encounter Date: 12/02/19 Encounter Time: 09:03 Subjective: oriented, DCed yesterday, no ride - Objective Vital Signs & Weight: Vital Signs (12 hours) Temp Pulse Resp BP BP BP Pulse Ox 12/02/19 07:33 97.9 F 70 18 142/68 H 98 12/02/19 04:00 97.8 F 62 20 114/59 L 100 12/02/19 00:47 100 12/01/19 23:34 97.5 F L 62 20 122/58 L 100 Weight Weight 196 lb 4.8 oz I&O: 12/01/19 12/02/19 12/03/19 06:59 06:59 06:59 Intake Total 1316 2877 240 Balance 1316 2877 240 Result Diagrams: 12/02/19 05:12 12/02/19 05:12 Additional Labs: Accuchecks 12/02/19 12/01/19 12/01/19 06:06 20:40 16:39 POC Glucose 160 H 223 H 270 H 12/01/19 11:03 POC Glucose 254 H Hospitalist ROS - Medication Medications: Active Medications Generic Name Dose Route Start Last Admin Trade Name Freq PRN Reason Stop Dose Admin Acetaminophen 500 mg 11/26/19 12:23 11/29/19 20:54 Tylenol PO 500 mg Q6H PRN Administration Mild Pain (1-3) Furosemide 20 mg 12/01/19 09:00 12/02/19 08:22 Lasix PO 20 mg DAILY GORGE Administration Gabapentin 300 mg 11/30/19 21:00 12/02/19 08:23 Neurontin PO 300 mg BID GORGE Administration Heparin Sodium (Porcine) 5,000 units 12/01/19 21:00 12/02/19 08:19 Heparin SC Not Given TID GORGE Insulin Human Lispro 0 units 11/26/19 07:14 12/02/19 06:21 Humalog SC 2 unit .MILD SLIDING SCALE PRN Administration Mild Correctional Scale Insulin Human Lispro 0 units 11/26/19 07:14 12/01/19 20:40 Humalog SC 2 unit .BEDTIME SLIDING SC PRN Administration Bedtime Correctional Scale Lactulose 20 gm 11/28/19 15:00 12/02/19 08:23 Lactulose PO 20 gm TID GORGE Administration Metoprolol Succinate 50 mg 11/26/19 09:00 12/02/19 08:22 Toprol Xl PO 50 mg DAILY GORGE Administration Pantoprazole Sodium 40 mg 11/28/19 09:00 12/02/19 08:22 Protonix PO 40 mg DAILY GORGE Administration Rifaximin 550 mg 11/26/19 21:00 12/02/19 08:30 Xifaxan PO 550 mg BID GORGE Administration Sodium Chloride 10 ml 11/26/19 09:00 12/02/19 08:23 Flush - Normal Saline IVF Not Given Q12HR GORGE Spironolactone 50 mg 12/01/19 09:00 12/02/19 08:22 Aldactone PO 50 mg DAILY GORGE Administration Venlafaxine HCl 150 mg 12/01/19 09:00 12/02/19 08:22 Effexor Xr PO 150 mg DAILY GORGE Administration - Exam General Appearance: awake alert Neck: no JVD Heart: RRR, no murmur Respiratory: CTAB Gastrointestinal: soft, normal bowel sounds Extremities: no edema Hosp A/P (1) Hepatitis C Code(s): B19.20 - UNSPECIFIED VIRAL HEPATITIS C WITHOUT HEPATIC COMA Status: Acute (2) Hepatic encephalopathy Code(s): K72.90 - HEPATIC FAILURE, UNSPECIFIED WITHOUT COMA Status: Acute (3) DM type 2 (diabetes mellitus, type 2) Status: Chronic Qualifiers: Diabetes mellitus intermediate insulin use: with director long term care use Diabetes mellitus complication status: with kidney complications Diabetes mellitus complication detail: with chronic kidney disease Chronic kidney disease stage : stage 3 (moderate) Qualified Code(s): E11.22 - Type 2 diabetes mellitus with diabetic chronic kidney disease; N18.3 - Chronic kidney disease, stage 3 ( moderate); Z79.4 - shelter (current) use of insulin (4) Hypertension Code(s): I10 - ESSENTIAL (PRIMARY) HYPERTENSION Status: Chronic (5) Liver cirrhosis Code(s): K74.60 - UNSPECIFIED CIRRHOSIS OF LIVER Status: Chronic Qualifiers: Hepatic cirrhosis type: unspecified hepatic cirrhosis Ascites presence: unspecified Qualified Code(s): K74.60 - Unspecified cirrhosis of liver (6) Thrombocytopenia Code(s): D69.6 - THROMBOCYTOPENIA, UNSPECIFIED Status: Chronic - Plan continue lactulose cont xifaxin, spironolactoe cont metoprolol, etc waiting on family
--- NOTE | 2019-12-02 16:38 | DIS ---
DATE OF ADMISSION: 11/26/2019 DATE OF DISCHARGE: 12/02/2019 DISPOSITION: Discharged home. FINAL DIAGNOSES: Hepatic encephalopathy, cirrhosis of the liver, hepatitis C, diabetes mellitus type 2, chronic kidney disease 3. DISCHARGE MEDICATIONS: 1. Lisinopril 2.5 mg a day. 2. Lantus SoloSTAR 20 units subcu daily. 3. Venlafaxine 150 mg daily. 4. Aldactone 50 mg daily. 5. Omeprazole 40 mg daily. 6. Metoprolol 50 mg daily. 7. Lactulose 20 q.i.d. 8. Gabapentin 300 mg twice a day. 9. Lasix 20 mg a day. 10. Xifaxan 550 mg twice a day. ALLERGY: To insulin detemir. CODE STATUS: Full. DIET AT THE TIME OF DISCHARGE: Diabetic, low protein. PENDING AT THE TIME OF DISCHARGE: Nothing. HOSPITAL COURSE: The patient admitted through the emergency room with acute encephalopathy. She was found to have a serum ammonia level of 194. CBC was within normal limits except a platelet of 84. PT/INR was mildly increased. Bilirubin 1.4, AST 66, ALT 35. CT of the brain was unremarkable. GI was consulted. Continue lactulose q.4 hours. Continue IV as long she is not eating or drinking. Add Xifaxan. The patient's ammonia level corrected by 11/26. Accu-Cheks followed. Her other medicines were continued. She did have significant diarrhea consistent with appropriate response. On 11/29, she was dramatically better. Lactulose was continued. Xifaxan was continued. Blood pressure was well controlled. Diabetes was controlled. She was continued on her home medicines. She was given a discharge order on 11/30, no one showed up; however, the called today and picked her up. She has been discharged on the medicines as shown to follow up with her PCP as available. She has [facility], need for a PCP has been discussed with her. She is expressing understanding. She is told her she needs to be seen in 3 to 7 days. Prognosis is guarded due to the extensive liver disease, etc., in terms of staying out of the hospital. Job ID: [id number]
== END 2019-12-02 12:19 | disposition home health service (06) | DRG 442 ==
LOC: ERS 22:19 → ERHOLD 11-26 00:43 → 2SE 11-26 19:18
PROVIDERS: ADMIT Family Medicine; ATTEND Family Medicine
DX: K72.90 Hepatic failure, unspecified without coma (principal); N17.9 Acute kidney failure, unspecified; E22.2 Syndrome of inappropriate secretion of antidiuretic hormone; K76.6 Portal hypertension; K74.60 Unspecified cirrhosis of liver; F32.9 Major depressive disorder, single episode, unspecified; F41.9 Anxiety disorder, unspecified; I12.9 Hypertensive chronic kidney disease with stage 1 through stage 4 chronic kidney disease, or unspecified chronic kidney disease; E83.42 Hypomagnesemia; E86.0 Dehydration; D69.6 Thrombocytopenia, unspecified; B18.2 Chronic viral hepatitis C; E11.22 Type 2 diabetes mellitus with diabetic chronic kidney disease; F17.210 Nicotine dependence, cigarettes, uncomplicated; N18.3 Chronic kidney disease, stage 3 (moderate); R74.0 Nonspecific elevation of levels of transaminase and lactic acid dehydrogenase [LDH]; E66.01 Morbid (severe) obesity due to excess calories; Z86.010 Personal history of colon polyps; Z90.49 Acquired absence of other specified parts of digestive tract; Z90.710 Acquired absence of both cervix and uterus; Z88.1 Allergy status to other antibiotic agents; Z79.4 Long term (current) use of insulin; Z68.31 Body mass index [BMI] 31.0-31.9, adult; Z91.14 Patient's other noncompliance with medication regimen
CPT/HCPCS: 36415; 36416; 51701; 70450; 71045; 80048; 80053; 81003; 82140; 83690; 83735; 84100; 85025; 85027; 85610; 90471; 90670; G0009; J1644; J2060; J3475; J3480; J3486; J7042; S0028

== ENCOUNTER 2020-09-01 13:16 | Outpatient (CLI) | payer MEDICARE, OTHER | END 2020-09-01 13:17 | disposition home or self-care (01) | LOC: BICRAD 13:16 | PROVIDERS: ATTEND Internal Medicine | DX: W19.XXXA Unspecified fall, initial encounter (principal); M47.816 Spondylosis without myelopathy or radiculopathy, lumbar region; M16.0 Bilateral primary osteoarthritis of hip | CPT/HCPCS: 71046; 72100 ==

== ENCOUNTER 2020-10-30 08:31 | Outpatient (CLI) | payer MEDICARE, OTHER | END 2020-10-30 08:32 | disposition home or self-care (01) | LOC: MRI 08:31 | PROVIDERS: ATTEND Physician Assistant Medical | DX: K74.60 Unspecified cirrhosis of liver (principal); R77.2 Abnormality of alphafetoprotein; K72.90 Hepatic failure, unspecified without coma | CPT/HCPCS: 74183; 82565 ==